=== PATIENT | male | born 1940 | race Caucasian/White ===

== ENCOUNTER 2018-11-20 09:04 | Observation (INO) ==
--- NOTE | 2018-11-20 09:16 | Emergency Department Note ---
ED Disposition Clinical Impression: Acute exacerbation of chronic obstructive airways disease Disposition: Xfer Short-Term Hosp Condition on Discharge: Serious - Critical Care Critical Care Time: No Attestation: On , the high probability of a clinically significant, sudden or life threatening deterioration of the following system(s) required my full and direct attention, intervention and personal management. The time I documented below is in addition to time spent performing reported procedures but includes the following listed in this critical care notation. Medical Decision Making - Medical Records Medical records reviewed: Yes: I reviewed the patient's medical records. - Teddy Inquiry Pt receiving controlled substance: No Vital Signs: 11/20/18 09:05 11/20/18 09:54 11/20/18 10:11 Temperature 98.9 F Temperature Source Oral Pulse Rate 91 H Pulse Rate [Right Brachial] 72 68 Respiratory Rate 19 22 Blood Pressure [Right Arm] 114/72 117/64 Blood Pressure Mean [Right Arm] 86 81 Blood Pressure Source [Right Arm] Automatic Cuff Blood Pressure Position [Right Arm] Sitting 02 Sat by Pulse Oximetry 98 97 Oxygen Delivery Method Room Air Nasal Cannula Oxygen Flow Rate (LPM) 4 - Lab Data Lab results reviewed: Yes: I reviewed the patient's lab results. Lab Results 11/20/18 09:14: Specimen Source Right radial, ABG pH 7.41, ABG pCO2 49.8 H, ABG pO2 53.9 L, ABG HCO3 31.1 H, ABG Total CO2 32.7 H, ABG O2 Saturation 89 L, ABG Base Excess 6.6 H, Santosh Test Acceptable 11/20/18 09:47: WBC 11.1 H, RBC 4.16 L, Hgb 11.9 L, Hct 39.4 L, MCV 94.9 H, MCH 28.6, MCHC 30.1 L, RDW 15.1, Plt Count 237, MPV 7.2 L, Neut % (Auto) 78.2, Lymph % (Auto) 14.4, Coles % (Auto) 7.2, Eos % (Auto) 0.0 L, Baso % (Auto) 0.2, Neut # (Auto) 8.7 H, Lymph # (Auto) 1.6, Coles # (Auto) 0.8, Eos # (Auto) 0.0, Baso # (Auto) 0.0 11/20/18 09:47: Sodium 141, Potassium 3.1 L, Chloride 99, Carbon Dioxide 33 H, Anion Gap 12.1, BUN 23 H, Creatinine 1.20, Estimated Creat Clear 55, Estimated GFR 59, Est GFR ( Amer) 71, Glucose 120 H, Calcium 9.3, Total Bilirubin 1.0, AST 13 L, ALT 14, Alkaline Phosphatase 86, Total Protein 7.7, Albumin 3.8, Globulin 3.9 H, Albumin/Globulin Ratio 1.0 L 11/20/18 09:47: Lactate 1.4 Result diagrams: 11/20/18 09:47 11/20/18 09:47 Orders (Tests/Meds): ED MEDICATIONS Generic Name Dose Route Start Last Admin Trade Name Freq PRN Reason Stop Dose Admin Donepezil HCl 10 mg 11/21/18 09:00 Aricept 10mg Tablet PO 12/21/18 08:59 DAILY JEREMÍAS Hydrochlorothiazide 25 mg 11/21/18 09:00 Hctz 25mg Tablet PO 12/21/18 08:59 DAILY [facility] Memantine 10 mg 11/20/18 21:00 Memantine 10mg Tablet PO 12/20/18 20:59 BID [facility] Oxycodone/Acetaminophen 1 each 11/20/18 13:00 Percocet 10mg/325mg Tablet PO 12/20/18 12:59 QID JEREMÍAS Pentoxifylline 400 mg 11/20/18 13:00 Trental 400mg Tablet PO 12/20/18 12:59 TID JEREMÍAS Discontinued Medications Generic Name Dose Route Start Last Admin Trade Name Freq PRN Reason Stop Dose Admin Albuterol/Ipratropium 3 ml 11/20/18 09:07 11/20/18 09:53 Duoneb 3ml Neb IH 11/20/18 09:08 3 ml ONCE ONE Administration Sodium Chloride 1,000 mls @ 999 mls/hr 11/20/18 09:15 11/20/18 10:01 Sod Chlor 0.9% 1000ml Bag IV 11/20/18 10:15 999 mls/hr .Q1H1M JEREMÍAS Administration Methylprednisolone Sodium Succinate 125 mg 11/20/18 09:06 11/20/18 10:01 Solu-Medrol 125mg/2ml Vial IV 11/20/18 09:07 125 mg ONCE ONE Administration ORDERS Category Date Time Status BNP [B-Type Natriuretic Peptide] Stat Lab 11/20/18 11:23 Ordered Trop I [Troponin I] Stat Lab 11/20/18 11:22 Ordered Blood Culture Stat Micro 11/20/18 09:47 Received Sputum Culture & Gram Stain Stat Micro 11/20/18 10:56 Received - Radiology Data #1 Image(s): Chest Image Reviewed: Yes I reviewed the patient's radiology results Preliminary Findings: Normal/NAD Resp/SOB HPI - General Chief Complaint: Shortness of Breath/Dyspnea Stated Complaint: shortness of breath Time Seen by Provider: 11/20/18 09:10 Mode of Arrival: EMS Limitations: No Limitations Description of Symptoms (Recalled from ER Triage Doc. by RN): Pt brought in by EMS for shortness of breath. Reports he has COPD and still smokes. Reports coughing up phlegm - History of Present Illness MD Complaint: shortness of breath Onset (ago): day(s) (1) Severity: moderate Consistency/Duration: constant Relieving factors: nothing Exacerbating factors: exertion Known history of: COPD Associated symptoms: denies other symptoms - Related Data Home oxygen amount: none Home Medications Medication Instructions Recorded Confirmed RX: Donepezil HCl [Aricept 10mg 10 mg PO DAILY 11/20/18 11/20/18 tablet] RX: Memantine HCl 10 mg PO BID 11/20/18 11/20/18 RX: Oxycodone HCl/Acetaminophen 1 tab PO QID 11/20/18 11/20/18 [Oxycodone W/Apap 325mg Tablet] RX: Pentoxifylline 400 mg PO TID 11/20/18 11/20/18 RX: hydroCHLOROthiazide [HCTZ 25mg 25 mg PO DAILY 11/20/18 11/20/18 tab] Allergies Allergy/AdvReac Type Severity Reaction Status Date / Time No Known Allergies Allergy Verified 09/30/18 08:28 [facility] History - Hepatitis A Screen Drug use history?: No High risk sexual behaviors?: No History of sexually transmitted infection?: No Currently employed?: No Childcare worker?: No Do you have indoor plumbing?: Yes Do you have electricity?: Yes Attestation statement:: This patient has been screened for Hepatitis A risk factors. I have reviewed the patient's past medical history: Yes Medical History: Reports:: Chronic Obstructive Pulmonary Disease (COPD) - Social History Smoking Status: Current every day smoker # Packs/Day (cigarettes): 1 Alcohol Intake: never Occupational Status: disabled Housing: assisted living facility ROS Obtained: Yes Systems reviewed as appropriate & no additional complaints - Constitutional Constitutional: Reports malaise - Eyes Eyes: Reports system reviewed and no additional complaints, except as docu - ENT Ears, Nose, Mouth, and Throat: Reports system reviewed and no additional com plaints, except as docu - Cardiovascular Cardiovascular: Reports system reviewed and no additional complaints, except as docu - Respiratory Respiratory: Yes dyspnea - Gastrointestinal Gastrointestingal: Reports: system reviewed and no additional complaints, except as docu - Genitourinary Male Genitourinary: Reports system reviewed and no additional complaints, except as docu - Musculoskeletal Musculoskeletal: Reports system reviewed and no additional complaints, except as docu - Integumentary/Breasts Skin/Breast: Reports system reviewed and no additional complaints, except as docu - Neurologic Neurologic: Reports system reviewed and no additional complaints, except as docu - Endocrine Endocrine: Reports system reviewed and no additional complaints, except as docu - Hematologic/Lymphatic Henatologic/Lymphatic: Reports system reviewed and no additional complaints, except as docu - Allergic/Immunologic Allergic/Immunologic: Reports system reviewed and no additional complaints, except as docu Physical Exam - General General appearance: alert - Head Head exam: atraumatic, normocephalic, normal inspection - Eye Eye exam: Present: normal appearance, PERRL, EOMI - ENT ENT exam: Present: mucous membranes moist - Neck Neck exam: Present: normal inspection, full ROM, trachea midline. Absent: meningismus, lymphadenopathy - Chest Chest inspection: Present: normal inspection, symmetric chest wall rise. Absent: tenderness - Respiratory Respiratory exam: Present: wheezes (bilat), accessory muscle use - Cardiovascular Cardiovascular exam: Present: regular rate, normal rhythm. Absent: JVD - Abdominal Exam Abdominal exam: Present: soft, normal bowel sounds. Absent: distention, tenderness, guarding - Extremities Exam Extremities exam: Present: normal inspection, full ROM, normal capillary refill. Absent: calf tenderness - Back Exam Back exam: Present: normal inspection. Absent: tenderness - Neurological Exam Neurological exam: Present: alert, CN II-XII intact, motor sensory deficit - Psychiatric Psychiatric exam: Present: normal affect, normal mood - Skin Skin exam: Present: warm, dry, intact, normal color - Lymphatic Lymphatic Findings: no adenopathy
[2018-11-20 09:19] LABS: ABG Base Excess 6.6 mmol/L (-2.4-2.3); ABG Oxygen Saturation 89 % (90-100); ABG TCO2 32.7 mmhg (23-27)
[2018-11-20 09:22] LABS: ABG PH 7.41 mmol/L (7.35-7.45)
[2018-11-20 09:30] LABS: Allen's Test Acceptable
[2018-11-20 09:38] LABS: ABG HCO3 31.1 mmhg (22.0-26.0); ABG PCO2 49.8 mmhg (35.0-45.0); ABG PO2 53.9 mmhg (80-100)
[2018-11-20 10:03] LABS: Basophils % 0.2 % (0.1-2.0); Hematocrit 39.4 % (42.0-52.0); Hemoglobin 11.9 g/dL (14.1-18.0); Lymphocytes # 1.6 K/mm3 (0.7-4.5); Lymphocytes % 14.4 % (10-50); Mean Corpuscular HGB Conc 30.1 g/dL (31.8-35.4); Mean Corpuscular Volume 94.9 fl (80-94); Mean Platelet Volume 7.2 fl (7.4-10.4); Monocytes # 0.8 K/mm3 (0.1-1.0); Monocytes % 7.2 % (1.7-9.3); Neutrophils # 8.7 K/mm3 (1.8-7.8); Neutrophils % 78.2 % (37.0-80.0); Platelet Count 237 K/mm3 (142-424); Red Blood Count 4.16 M/mm3 (4.60-6.20); Red Cell Distribution Width 15.1 % (11.5-17.5); White Blood Count 11.1 K/mm3 (4.8-10.8)
[2018-11-20 10:14] LABS: Albumin Level 3.8 gm/dL (3.4-5.0); Anion Gap 12.1 mEq/L (5-15); Calcium 9.3 mg/dL (8.5-10.1); Globulin 3.9 gm/dl (1.3-3.2); Total Protein,Serum 7.7 gm/dL (6.4-8.2)
--- NOTE | 2018-11-20 12:11 | Pharmacy Consult Notes ---
[facility] [place] Pharmacy VTE Monitoring - Patient Demographics Admission date: 11/20/18 Report Date: 11/20/18 Time: 12:10 Allergies/Adverse Reactions: Patient Allergies No Known Allergies Allergy (Verified 09/30/18 08:28) Height: 1.83 m Weight: 77.111 kg Patient Problems: Current Active Problems Acute exacerbation of chronic obstructive airways disease (Acute) - VTE Risk Labs: VTE Related Lab Results Hgb 11.9 g/dL (14.1-18.0) L 11/20/18 09:47 Hct 39.4 % (42.0-52.0) L 11/20/18 09:47 Plt Count 237 K/mm3 (142-424) 11/20/18 09:47 BUN 23 mg/dL (7-18) H 11/20/18 09:47 Creatinine 1.20 mg/dL (0.70-1.30) 11/20/18 09:47 Estimated Creat Clear 55 mL/min (50-200) 11/20/18 09:47 - Prophylaxis VTE Prophylaxis Ordered?: Yes Types of VTE Prophylaxis: TEDS Knee High Location of Applied Device: Bilateral Lower Extremeties - VTE Diagnosis Confirmed Treatment or plan recommended: Continue Current Treatment
[2018-11-21 06:42] LABS: Albumin/Globulin Ratio 0.9 (1.1-1.8); Anion Gap 8.7 mEq/L (5-15); Bilirubin,Total 0.4 mg/dL (0.2-1.0); Calcium 8.9 mg/dL (8.5-10.1); Globulin 3.3 gm/dl (1.3-3.2); Total Protein,Serum 6.3 gm/dL (6.4-8.2)
[2018-11-21 06:51] LABS: Eosinophils % 0.1 % (0.1-12.0); Hematocrit 33.3 % (42.0-52.0); Lymphocytes # 0.7 K/mm3 (0.7-4.5); Lymphocytes % 6.8 % (10-50); Mean Corpuscular HGB Conc 30.6 g/dL (31.8-35.4); Mean Corpuscular Volume 93.9 fl (80-94); Mean Platelet Volume 8.1 fl (7.4-10.4); Monocytes # 0.4 K/mm3 (0.1-1.0); Monocytes % 3.7 % (1.7-9.3); Neutrophils # 8.8 K/mm3 (1.8-7.8); Neutrophils % 89.3 % (37.0-80.0); Platelet Count 205 K/mm3 (142-424); Red Blood Count 3.55 M/mm3 (4.60-6.20); Red Cell Distribution Width 14.3 % (11.5-17.5); White Blood Count 9.8 K/mm3 (4.8-10.8)
[2018-11-21 06:55] LABS: Hemoglobin 10.2 g/dL (14.1-18.0)
--- NOTE | 2018-11-21 08:42 | H&P/Discharge Summary ---
<Chris Flaherty - Last Filed: 11/21/18 08:43> General - General Admission date:: 11/20/18 Discharge date: 11/21/18 *Admission Date: 11/20/18 *Chief complaint: soa *History of present illness: 78-year-old male who is a [facility] of [facility] presented to the ER with complaints of shortness of air and coughing. Patient has a history of COPD. Patient admitted for low O2 saturation and shortness of air. [facility] History I have reviewed the patient's past medical history: Yes Medical History: Reports:: Chronic Obstructive Pulmonary Disease (COPD) *Have you ever received a pneumonia vaccine?: No *Have you received a flu vaccine this season?: Yes - *Social History Smoking Status: Current every day smoker # Packs/Day (cigarettes): 1 Alcohol Intake: never *Occupational Status:: disabled Housing: assisted living facility *Travel in the last 8 weeks: None Family Hx:: Unable to obtain Review of Systems - Review of Systems Review of systems:: pertinent systems reviewed and negative unless documented below - Constitutional Denies body ache(s), Denies fever(s) - Eyes Denies change in vision - ENT Denies sinus pain - *Cardiovascular Reports shortness of breath, Denies chest pain at rest - *Respiratory Reports change in phlegm color, Reports shortness of breath, Denies shortness of breath with activity - *Gastrointestinal Denies nausea, Denies vomiting - *Genitourinary Denies urinary hesitancy - *Musculoskeletal Denies joint pain - Integumentary/Breasts Denies bleeding lesions, Denies rash - *Neurologic Denies dizziness - Psychiatric Denies anxiety - Endocrine Denies increased thirst - Hematologic/Lymphatic Denies enlarged lymph nodes - Allergic/Immunologic Denies itchy eyes, Denies throat swelling Exam Vital signs and Labs for Last 24 Hours: Temp Pulse Resp BP Pulse Ox 97.4 F L 77 18 122/52 L 91 L 11/21/18 04:00 11/21/18 06:46 11/21/18 04:00 11/21/18 04:00 11/21/18 06:46 Laboratory Results - last 24 hr 11/20/18 09:14: Specimen Source Right radial, ABG pH 7.41, ABG pCO2 49.8 H, ABG pO2 53.9 L, ABG HCO3 31.1 H, ABG Total CO2 32.7 H, ABG O2 Saturation 89 L, ABG Base Excess 6.6 H, Santosh Test Acceptable 11/20/18 09:47: WBC 11.1 H, RBC 4.16 L, Hgb 11.9 L, Hct 39.4 L, MCV 94.9 H, MCH 28.6, MCHC 30.1 L, RDW 15.1, Plt Count 237, MPV 7.2 L, Neut % (Auto) 78.2, Lymph % (Auto) 14.4, Thayer % (Auto) 7.2, Eos % (Auto) 0.0 L, Baso % (Auto) 0.2, Neut # (Auto) 8.7 H, Lymph # (Auto) 1.6, Thayer # (Auto) 0.8, Eos # (Auto) 0.0, Baso # (Auto) 0.0 11/20/18 09:47: Sodium 141, Potassium 3.1 L, Chloride 99, Carbon Dioxide 33 H, Anion Gap 12.1, BUN 23 H, Creatinine 1.20, Estimated Creat Clear 55, Estimated GFR 59, Est GFR ( Amer) 71, Glucose 120 H, Calcium 9.3, Total Bilirubin 1.0, AST 13 L, ALT 14, Alkaline Phosphatase 86, Total Protein 7.7, Albumin 3.8, Globulin 3.9 H, Albumin/Globulin Ratio 1.0 L 11/20/18 09:47: Lactate 1.4 11/20/18 09:47: Troponin I < 0.02 11/20/18 09:47: B-Natriuretic Peptide 97 11/21/18 06:11: WBC 9.8, RBC 3.55 L, Hgb 10.2 L D, Hct 33.3 L, MCV 93.9, MCH 28.8, MCHC 30.6 L, RDW 14.3, Plt Count 205, MPV 8.1, Neut % (Auto) 89.3 H, Lymph % (Auto) 6.8 L, Thayer % (Auto) 3.7, Eos % (Auto) 0.1, Baso % (Auto) 0.0 L, Neut # (Auto) 8.8 H, Lymph # (Auto) 0.7, Thayer # (Auto) 0.4, Eos # (Auto) 0.0, Baso # (Auto) 0.0 11/21/18 06:11: Sodium 138, Potassium 2.7 L*, Chloride 101, Carbon Dioxide 31, Anion Gap 8.7, BUN 31 H D, Creatinine 1.21, Estimated Creat Clear 55, Estimated GFR 58 L, Est GFR ( Amer) 70, Glucose 162 H D, Calcium 8.9, Magnesium 2.3 H, Total Bilirubin 0.4, AST 9 L D, ALT 12, Alkaline Phosphatase 70, Total Protein 6.3 L, Albumin 3.0 L D, Globulin 3.3 H, Albumin/Globulin Ratio 0.9 L I & O for Last 24 hours: Intake & Output 11/18/18 11/19/18 11/20/18 11/21/18 11:59 11:59 11:59 11:59 Intake Total 120 / 120 Output Total 400 / 400 Balance -280 / -280 Weight 169 lb 15.975 oz 171 lb 3 oz Microbiology Reports for the Last 24 Hours: Microbiology 11/20/18 10:56 Sputum - Expectorated Sputum Gram Stain - Final - Constitutional no acute distress - *Routine HEENT Exam Head: Present: normocephalic Eye: Present: PERRL ENT: Present: mucous membranes moist - *Routine Neck Exam Present: supple. Absent: lymphadenopathy - *Routine Respiratory Exam Present: wheezes - *Routine Cardiovascular Exam Present: RRR - *Routine Abdominal Exam Present: soft, normoactive bowel sounds. Absent: tenderness - *Routine Extremities Exam Absent: cyanosis, clubbing, edema - *Routine Skin Exam Present: warm. Absent: rash - *Routine Neurological Exam Present: alert, oriented X3 - Routine Psychiatric Exam Present: normal affect Hospital Course Hospital Course: Patient was placed on O2 given steroids. Chest x-ray with no acute findings Low potassium will replace with oral potassium Patient's O2 is 95% on room air. Patient is alert and talking sitting on the side of the bed. 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 [facility] be [facility] to [facility] with a 5-day course of steroids. And recheck BMP on Saturday Results Labs on day of discharge: Labs from last 24 hours 10/04/19 10/04/19 10/03/19 06:11 06:11 09:47 WBC 9.8 RBC 3.55 L Hgb 10.2 L D Hct 33.3 L MCV 93.9 MCH 28.8 MCHC 30.6 L RDW 14.3 Plt Count 205 MPV 8.1 Neut % (Auto) 89.3 H Lymph % (Auto) 6.8 L Thayer % (Auto) 3.7 Eos % (Auto) 0.1 Baso % (Auto) 0.0 L Neut # (Auto) 8.8 H Lymph # (Auto) 0.7 Thayer # (Auto) 0.4 Eos # (Auto) 0.0 Baso # (Auto) 0.0 Specimen Source ABG pH ABG pCO2 ABG pO2 ABG HCO3 ABG Total CO2 ABG O2 Saturation ABG Base Excess Santosh Test Sodium 138 Potassium 2.7 L* Chloride 101 Carbon Dioxide 31 Anion Gap 8.7 BUN 31 H D Creatinine 1.21 Estimated Creat Clear 55 Estimated GFR 58 L Est GFR ( Amer) 70 Glucose 162 H D Lactate Calcium 8.9 Magnesium 2.3 H Total Bilirubin 0.4 AST 9 L D ALT 12 Alkaline Phosphatase 70 Troponin I B-Natriuretic Peptide 97 Total Protein 6.3 L Albumin 3.0 L D Globulin 3.3 H Albumin/Globulin Ratio 0.9 L 11/20/18 11/20/18 11/20/18 09:47 09:47 09:47 WBC RBC Hgb Hct MCV MCH MCHC RDW Plt Count MPV Neut % (Auto) Lymph % (Auto) Thayer % (Auto) Eos % (Auto) Baso % (Auto) Neut # (Auto) Lymph # (Auto) Thayer # (Auto) Eos # (Auto) Baso # (Auto) Specimen Source ABG pH ABG pCO2 ABG pO2 ABG HCO3 ABG Total CO2 ABG O2 Saturation ABG Base Excess Santosh Test Sodium 141 Potassium 3.1 L Chloride 99 Carbon Dioxide 33 H Anion Gap 12.1 BUN 23 H Creatinine 1.20 Estimated Creat Clear 55 Estimated GFR 59 Est GFR ( Amer) 71 Glucose 120 H Lactate 1.4 Calcium 9.3 Magnesium Total Bilirubin 1.0 AST 13 L ALT 14 Alkaline Phosphatase 86 Troponin I < 0.02 B-Natriuretic Peptide Total Protein 7.7 Albumin 3.8 Globulin 3.9 H Albumin/Globulin Ratio 1.0 L 11/20/18 11/20/18 09:47 09:14 WBC 11.1 H RBC 4.16 L Hgb 11.9 L Hct 39.4 L MCV 94.9 H MCH 28.6 MCHC 30.1 L RDW 15.1 Plt Count 237 MPV 7.2 L Neut % (Auto) 78.2 Lymph % (Auto) 14.4 Thayer % (Auto) 7.2 Eos % (Auto) 0.0 L Baso % (Auto) 0.2 Neut # (Auto) 8.7 H Lymph # (Auto) 1.6 Thayer # (Auto) 0.8 Eos # (Auto) 0.0 Baso # (Auto) 0.0 Specimen Source Right radial ABG pH 7.41 ABG pCO2 49.8 H ABG pO2 53.9 L ABG HCO3 31.1 H ABG Total CO2 32.7 H ABG O2 Saturation 89 L ABG Base Excess 6.6 H Santosh Test Acceptable Sodium Potassium Chloride Carbon Dioxide Anion Gap BUN Creatinine Estimated Creat Clear Estimated GFR Est GFR ( Amer) Glucose Lactate Calcium Magnesium Total Bilirubin AST ALT Alkaline Phosphatase Troponin I B-Natriuretic Peptide Total Protein Albumin Globulin Albumin/Globulin Ratio - Additional Comments Rounded with Dr. Senior all orders per Nadeen DS: Diagnosis - Discharge Diagnosis (1) Acute exacerbation of chronic obstructive airways disease Status: Acute Discharge Plan - Patient Discharge Instructions ACTIVITY: Continue current activity DIET: continue same diet Patient Instructions: DI for Chronic Obstructive Pulmonary Disease - Follow up Plan Follow up with: Provider,Referral, [Primary Care Provider] - Disposition: Home, Self-Residential Medications: Home Medications Medication Instructions Recorded Confirmed Type Donepezil HCl [Aricept 10mg 10 mg PO HS 11/20/18 11/20/18 History tablet] Memantine HCl 10 mg PO BID 11/20/18 11/20/18 History Oxycodone HCl/Acetaminophen 1 tab PO QID 11/20/18 11/20/18 History [Oxycodone W/Apap 325mg Tablet] Pentoxifylline 400 mg PO TID 11/20/18 11/20/18 History hydroCHLOROthiazide [HCTZ 25mg 25 mg PO DAILY 11/20/18 11/20/18 History tab] levoFLOXacin [Levaquin 500mg 500 mg PO 1100 #5 tab 11/21/18 Rx tab] predniSONE [Prednisone 20mg 20 mg PO BID #10 tab 11/21/18 Rx Tab] Prescriptions/Medication Reconciliation: New predniSONE [Prednisone 20mg Tab] 20 mg PO BID #10 tab levoFLOXacin [Levaquin 500mg tab] 500 mg PO 1100 #5 tab Continued Memantine HCl 10 mg PO BID Pentoxifylline 400 mg PO TID Donepezil HCl [Aricept 10mg tablet] 10 mg PO HS Oxycodone HCl/Acetaminophen [Oxycodone W/Apap 325mg Tablet] 1 tab PO QID Discontinued hydroCHLOROthiazide [HCTZ 25mg tab] 25 mg PO DAILY - Problem Reconciliation Problems Reviewed?: Yes <Chandu Senior - Last Filed: 11/21/18 12:16> General - General Admission date:: 11/20/18 Exam Vital signs and Labs for Last 24 Hours: Temp Pulse Resp BP Pulse Ox 97.9 F 72 18 123/52 L 92 L 11/21/18 08:00 11/21/18 11:05 11/21/18 08:00 11/21/18 08:00 11/21/18 11:05 Laboratory Results - last 24 hr 11/21/18 06:11: WBC 9.8, RBC 3.55 L, Hgb 10.2 L D, Hct 33.3 L, MCV 93.9, MCH 28.8, MCHC 30.6 L, RDW 14.3, Plt Count 205, MPV 8.1, Neut % (Auto) 89.3 H, Lymph % (Auto) 6.8 L, Thayer % (Auto) 3.7, Eos % (Auto) 0.1, Baso % (Auto) 0.0 L, Neut # (Auto) 8.8 H, Lymph # (Auto) 0.7, Thayer # (Auto) 0.4, Eos # (Auto) 0.0, Baso # (Auto) 0.0, Total Counted 100, Neutrophils % (Manual) 89 H, Band Neutrophils % 1.0, Lymphocytes % (Manual) 8 L, Monocytes % (Manual) 1 L, Metamyelocytes % 1.0, Platelet Estimate Normal, Hypochromasia 1+ 11/21/18 06:11: Sodium 138, Potassium 2.7 L*, Chloride 101, Carbon Dioxide 31, Anion Gap 8.7, BUN 31 H D, Creatinine 1.21, Estimated Creat Clear 55, Estimated GFR 58 L, Est GFR ( Amer) 70, Glucose 162 H D, Calcium 8.9, Magnesium 2.3 H, Total Bilirubin 0.4, AST 9 L D, ALT 12, Alkaline Phosphatase 70, Total Protein 6.3 L, Albumin 3.0 L D, Globulin 3.3 H, Albumin/Globulin Ratio 0.9 L I & O for Last 24 hours: Intake & Output 11/19/18 11/20/18 11/21/18 11/22/18 11:59 11:59 11:59 11:59 Intake Total 480 / 480 Output Total 400 / 400 Balance 80 / 80 Weight 169 lb 15.975 oz 171 lb 3 oz Microbiology Reports for the Last 24 Hours: Microbiology 11/20/18 10:56 Sputum - Expectorated Sputum Gram Stain - Final 11/20/18 10:56 Sputum - Expectorated Sputum Sputum Culture - Preliminary Results Labs on day of discharge: Labs from last 24 hours 11/21/18 11/21/18 06:11 06:11 WBC 9.8 RBC 3.55 L Hgb 10.2 L D Hct 33.3 L MCV 93.9 MCH 28.8 MCHC 30.6 L RDW 14.3 Plt Count 205 MPV 8.1 Neut % (Auto) 89.3 H Lymph % (Auto) 6.8 L Thayer % (Auto) 3.7 Eos % (Auto) 0.1 Baso % (Auto) 0.0 L Neut # (Auto) 8.8 H Lymph # (Auto) 0.7 Thayer # (Auto) 0.4 Eos # (Auto) 0.0 Baso # (Auto) 0.0 Total Counted 100 Neutrophils % (Manual) 89 H Band Neutrophils % 1.0 Lymphocytes % (Manual) 8 L Monocytes % (Manual) 1 L Metamyelocytes % 1.0 Platelet Estimate Normal Hypochromasia 1+ Sodium 138 Potassium 2.7 L* Chloride 101 Carbon Dioxide 31 Anion Gap 8.7 BUN 31 H D Creatinine 1.21 Estimated Creat Clear 55 Estimated GFR 58 L Est GFR ( Amer) 70 Glucose 162 H D Calcium 8.9 Magnesium 2.3 H Total Bilirubin 0.4 AST 9 L D ALT 12 Alkaline Phosphatase 70 Total Protein 6.3 L Albumin 3.0 L D Globulin 3.3 H Albumin/Globulin Ratio 0.9 L Preliminary micro results at discharge 11/20/18 10:56 Sputum Culture - Preliminary Sputum - Expectorated Sputum DS: Diagnosis - Discharge Diagnosis (1) Acute exacerbation of chronic obstructive airways disease Status: Acute (2) Hypokalemia Status: Acute (3) Anemia Status: Acute (4) Mild dementia Status: Chronic (5) Tobacco use Status: Acute Discharge Plan - Problem Reconciliation Problems Reviewed?: Yes
[2018-11-21 09:09] LABS: Hypochromasia 1+; Lymphocytes % 8 % (10-50); Monocytes % 1 % (2-9); Neutrophils % 89 % (42-76); Total Cells Counted 100
--- NOTE | 2018-11-22 19:17 | Electrocardiograph Report ---
APPROVED REPORT Exam: Resting ECG HR:76 bpm ECG Measurements Heart Rate 76 AXES WA 196 P 94 QRSd 104 QRS -75 QT 402 T80 QTc 452 <Conclusion> Normal sinus rhythm Pulmonary disease pattern Left anterior fascicular block Abnormal ECG Electronically signed by : Eyad Varghese, 11/22/2018 19:16:46
== END 2018-11-21 13:26 | disposition home or self-care (01) ==
LOC: 2ND 09:04 → ER 09:04 → 2ND 12:07
PROVIDERS: ADMIT Emergency Medicine; ATTEND Emergency Medicine
CPT/HCPCS: 71010; 71045; 80053; 82803; 83605; 83735; 83880; 84484; 85007; 85025; 87040; 87070; 87077; 87205; 93005; 94640; 94761; 96365; 96375; 99285; G0378

== ENCOUNTER 2020-09-29 14:16 | Emergency (ER) | payer MEDICARE, MEDICAID, SELFPAY ==
[2020-09-29 14:16] VITALS: BP 116/55; PULSE 76; RESP 16; TEMP 36.7; O2SAT 97; BMI 24.4
--- NOTE | 2020-09-29 14:29 | XR_ITS ---
PROCEDURE: XR KNEE RT 3V CLINICAL INDICATION: fall from standing onto right hip COMPARISON: CR XR KNEE RT 3V from 01/22/2019 FINDINGS: No fracture or dislocation. No lytic or blastic change. There is normal mineralization. Mild osteoarthritic changes with mild generalized osteopenia. Other findings:None. IMPRESSION: No acute findings. Dictated by: Santosh Haas MD 09/29/2020 15:03 Santosh Haas MD in [place] 09/29/2020 15:03
--- NOTE | 2020-09-29 14:29 | XR_ITS ---
PROCEDURE: XR HIP RT 2-3V W/PELVIS CLINICAL INDICATION: fall from standing onto right hip COMPARISON: No exams were available for comparison FINDINGS: No fracture or dislocation is evident. No significant degenerative change. No lytic or blastic change. Unremarkable soft tissues. IMPRESSION: No acute findings. Dictated by: Santosh Haas MD 09/29/2020 15:06 Santosh Haas MD in [facility] 09/29/2020 15:06
--- NOTE | 2020-09-29 14:30 | HMH.EDLOEX ---
ED Disposition Clinical Impression: Fall Qualifiers: Encounter type: initial encounter Qualified Code(s): W19.XXXA - Unspecified fall, initial encounter Leg pain Qualifiers: Laterality: right Qualified Code(s): M79.604 - Pain in right leg Disposition: Home, Self-Care Condition on Discharge: Good Instructions: DI for Musculoskeletal Pain Additional Instructions: Follow-up with primary care provider within 3 days for reevaluation. Return to the emergency department for any acute new concerns. - Critical Care Critical Care Time: No Attestation: On , the high probability of a clinically significant, sudden or life threatening deterioration of the following system(s) required my full and direct attention, intervention and personal management. The time I documented below is in addition to time spent performing reported procedures but includes the following listed in this critical care notation. Medical Decision Making - Medical Records Medical records reviewed: Yes: I reviewed the patient's medical records. - Teddy Inquiry Pt receiving controlled substance: No Vital Signs: 09/29/20 14:16 Temperature 98.1 F Temperature Source Oral Pulse Rate [Right] 76 Respiratory Rate 16 Blood Pressure [Right Arm] 116/55 L Blood Pressure Mean [Right Arm] 75 02 Sat by Pulse Oximetry 97 Oxygen Delivery Method Room Air - Radiology Data #1 Image(s): Hip, Knee Image Reviewed: Yes I reviewed the patient's radiology results Preliminary Findings: Normal/NAD Medical Decision Narrative: No obvious deformity of the hip or knee on exam. Patient's right upper extremity, while initially painful, now is able to have painless full range of motion and an unremarkable exam other than some mild bruising around the right elbow. X-rays of the right hip and knee are negative for any acute fracture dislocation and patient does have full active range of motion at the hip and knee. Discharged back to [facility]. Lower Extremity Injury HPI - General Stated Complaint: fall Time Seen by Provider: 09/29/20 14:31 Mode of Arrival: EMS Source of Information: Patient, EMS Limitations: No Limitations - History of Present Illness HPI Narrative: The emergency department for right hip and knee pain after falling just prior to arrival. He stood up from the chair and states his right leg gave out . He denies any associated chest pain, shortness of breath or recent illnesses. He has pain at the right hip and knee with movement though he is able to fully mobilize the extremity. He initially complained of right shoulder and right elbow pain as well, but is able to mobilize those much better now and states pain is improving. No head injury, no loss of consciousness. He denies any neck or back pain. - Related Data Home Medications Medication Instructions Recorded Confirmed Donepezil HCl [Aricept 10mg 10 mg PO HS 11/20/18 11/23/18 tablet] Memantine HCl 10 mg PO BID 11/20/18 11/23/18 Pentoxifylline 400 mg PO TID 11/20/18 11/23/18 levoFLOXacin [Levaquin 500mg 500 mg PO 1100 11/23/18 11/23/18 tab] predniSONE [Prednisone 20mg 20 mg PO BID 11/23/18 11/23/18 Tab] Previous Rx's Medication Instructions Recorded Albuterol Sulfate [Albuterol HFA 2 puffs IH Q6HP PRN #1 inh 11/23/18 Inhaler] Amoxicillin [Amoxicillin 500mg 500 mg PO TID #21 cap 11/23/18 Cap] Ibuprofen [Ibuprofen 600mg 600 mg PO Q8HP PRN 30 Days #90 tab 01/22/19 Tablet] oxycodone-acetaminophen 10 mg-325 1 tab PO QID #120 tab 09/20/20 mg tablet Allergies Allergy/AdvReac Type Severity Reaction Status Date / Time No Known Allergies Allergy Verified 11/23/18 12:21 [facility] History - Hepatitis A Screen Attestation statement:: This patient has been screened for Hepatitis A risk factors. I have reviewed the patient's past medical history: Yes Medical History: Reports:: Chronic Obstructive Pulmonary Disease (COPD) -
--- NOTE | 2020-09-29 15:21 | PC.NURSE ---
Deborah called for transport
[2020-09-29 15:45] VITALS: BP 132/65; PULSE 76; RESP 18; TEMP 36.7; O2SAT 97
== END 2020-09-29 15:52 | disposition home or self-care (01) ==
PROVIDERS: Emergency Provider Emergency Medicine
DX: M79.604 Pain in right leg (principal); W01.0XXA Fall on same level from slipping, tripping and stumbling without subsequent striking against object, initial encounter; Y92.019 Unspecified place in single-family (private) house as the place of occurrence of the external cause
CPT/HCPCS: 73502; 73562; 96365; 99282

== ENCOUNTER 2020-10-18 21:21 | Emergency (ER) | payer MEDICARE, MEDICAID, SELFPAY ==
[2020-10-18 21:18] VITALS: BP 119/80; PULSE 78; RESP 18; TEMP 37.1; O2SAT 99; BMI 26.6
--- NOTE | 2020-10-18 21:35 | XR_ITS ---
PROCEDURE INFORMATION: Exam: XR Chest Exam date and time: 10/18/2020 9:35 PM Age: 80 years old Clinical indication: Shortness of breath and other: Weakness; Patient HX: SOA, weakness, contact with a covid positive person TECHNIQUE: Imaging protocol: XR of the chest. Views: 2 views. COMPARISON: CR XR CHEST PORTABLE 11/23/2018 12:27 PM FINDINGS: Lungs: Bibasal subsegmental atelectasis/scarring, unchanged. No focal consolidation. No appreciable pulmonary edema. Pleural spaces: No pleural effusion. No pneumothorax. Heart/Mediastinum: Cardiomediastinal silhouette is unchanged. Bones/joints: No acute osseous abnormality. Soft tissues: Unremarkable. IMPRESSION: No evidence of acute cardiopulmonary disease.
[2020-10-18 21:40] LABS: Microscopic, Urine URINE MICROSCOPIC (MICROSCOPIC)
[2020-10-18 21:42] LABS: Appearance,Urine CLEAR (Clear); Bilirubin,Urine Negative (Negative); Blood, Urine TRACE-I (Negative); Color,Urine YELLOW (Yellow); Glucose,Urine (UA) Negative (Negative); Ketones,Urine Negative (Negative); Leukocyte Esterase,Urine Negative (Negative); Nitrate,Urine Negative (Negative); PH,Urine 5.5 (5.0-8.5); Protein,Urine Negative (Negative); Specific Gravity, Urine 1.025 (1.005-1.030)
[2020-10-18 21:43] LABS: Basophils # 0.1 K/mm3 (0-0.2); Basophils % 1.6 % (0.1-2.0); Eosinophils % 0.2 % (0.1-12.0); Hematocrit 42.1 % (42.0-52.0); Hemoglobin 13.1 g/dL (14.1-18.0); Lymphocytes # 1.1 K/mm3 (0.7-4.5); Lymphocytes % 23.3 % (10-50); Mean Corpuscular HGB Conc 31.2 g/dL (31.8-35.4); Mean Corpuscular Hemoglobin 30.2 pg (27.0-31.2); Mean Platelet Volume 8.1 fl (7.4-10.4); Monocytes # 0.6 K/mm3 (0.1-1.0); Monocytes % 13.4 % (1.7-9.3); Neutrophils # 2.9 K/mm3 (1.8-7.8); Neutrophils % 61.5 % (37.0-80.0); Platelet Count 236 K/mm3 (142-424); Red Blood Count 4.34 M/mm3 (4.60-6.20); Red Cell Distribution Width 14.5 % (11.5-17.5); White Blood Count 4.8 K/mm3 (4.8-10.8)
[2020-10-18 21:52] LABS: Alanine Aminotransferase 15 U/L (12-78); Albumin Level 4.4 g/dl (3.5-5.0); Albumin/Globulin Ratio 1.4 (1.1-1.8); Alkaline Phosphatase 100 U/L (38-126); Anion Gap 14.1 mEq/L (5-15); Aspartate Amino Transferase 27 U/L (17-59); Bilirubin,Total 0.7 mg/dl (0.2-1.3); Blood Urea Nitrogen 25 mg/dl (9-20); Calcium 9.1 mg/dl (8.4-10.2); Carbon Dioxide 31 mmol/L (22.0-30.0); Chloride 96 mmol/L (98-107); Creatinine Clearance Estimated 62 mL/min (50-200); Estimated Glomerular Filt Rate 64 ml/min (>60); GFR (African American) 78 ML/MIN (>60); Globulin 3.1 g/dL (1.3-3.2); Glucose 91 mg/dl (74-100); Potassium 4.1 mmoL/L (3.5-5.1); Sodium 137 mmol/L (136-145); Total Protein,Serum 7.5 g/dl (6.3-8.2)
[2020-10-18 21:58] LABS: C-Reactive Protein 18.1 mg/L (0-4)
[2020-10-18 21:59] LABS: RBC,Urine Occasional #/hpf (0-3); WBC,Urine Occasional #/hpf (0-3)
[2020-10-18 22:10] LABS: Erythrocyte Sedimentation Rate 51 mm/hr (0-20)
[2020-10-18 22:11] LABS: Procalcitonin 0.123 ng/mL (0.0-2.0)
[2020-10-18 22:14] LABS: Influenza A, PCR Not Detected (NotDetected); Influenza B, PCR Not Detected (NotDetected)
[2020-10-18 22:15] LABS: Coronavirus 19, PCR Detected (NotDetected)
--- NOTE | 2020-10-18 22:31 | HMH.EDGENADL ---
ED Disposition Clinical Impression: COVID-19 Disposition: Home, Self-Care Condition on Discharge: Good Instructions: DI for COVID-19 (Suspected or Confirmed ) Additional Instructions: will consider regen-cov and return to senior care Referrals: Chandu Senior MD [Primary Care Provider] - - Critical Care Critical Care Time: No Attestation: On 10/18/20, the high probability of a clinically significant, sudden or life threatening deterioration of the following system(s) required my full and direct attention, intervention and personal management. The time I documented below is in addition to time spent performing reported procedures but includes the following listed in this critical care notation. Medical Decision Making - Medical Records Medical records reviewed: Yes: I reviewed the patient's medical records. - Teddy Inquiry Pt receiving controlled substance: No Vital Signs: 10/18/20 21:18 Temperature 98.7 F Temperature Source Oral Pulse Rate [Right] 78 Respiratory Rate 18 Blood Pressure [Right Arm] 119/80 Blood Pressure Mean [Right Arm] 93 02 Sat by Pulse Oximetry 99 - Lab Data Lab results reviewed: Yes: I reviewed the patient's lab results. Lab Results 10/18/20 21:20: Urine Color Yellow, Urine Appearance Clear, Urine pH 5.5, Ur Specific [place] 1.025, Urine Protein Negative, Urine Glucose (UA) Negative, Urine Ketones Negative, Urine Blood Trace-i, Urine Nitrate Negative, Urine Bilirubin Negative, Urine Urobilinogen 1.0, Ur Leukocyte Esterase Negative, Urine RBC Occasional, Urine WBC Occasional, Ur Squamous Epith Cells 3-5, Urine Bacteria None 10/18/20 21:20: WBC 4.8, RBC 4.34 L, Hgb 13.1 L, Hct 42.1, MCV 97.0 H, MCH 30.2, MCHC 31.2 L, RDW 14.5, Plt Count 236, MPV 8.1, Neut % (Auto) 61.5, Lymph % (Auto) 23.3, [place] % (Auto) 13.4 H, Eos % (Auto) 0.2, Baso % (Auto) 1.6, Neut # (Auto) 2.9, Lymph # (Auto) 1.1, [place] # (Auto) 0.6, Eos # (Auto) 0.0, Baso # (Auto) 0.1, ESR 51 H 10/18/20 21:36: Sodium 137, Potassium 4.1, Chloride 96 L, Carbon Dioxide 31 H, Anion Gap 14.1, BUN 25 H, Creatinine 1.10, Estimated Creat Clear 62, Estimated GFR 64, Est GFR ( Amer) 78, Glucose 91, Calcium 9.1, Total Bilirubin 0.7, AST 27, ALT 15, Alkaline Phosphatase 100, C-Reactive Protein 18.1 H, Total Protein 7.5, Albumin 4.4, Globulin 3.1, Albumin/Globulin Ratio 1.4, Procalcitonin 0.123 10/18/20 21:36: SARS-CoV-2 (PCR) Detected A, Influenza A Untype (PCR) Not detected, Influenza Type B (PCR) Not detected Result diagrams: 10/18/20 21:20 10/18/20 21:36 Orders (Tests/Meds): ED MEDICATIONS Generic Name Dose Route Start Last Admin Trade Name Freq PRN Reason Stop Dose Admin Sodium Chloride 1,000 mls @ 999 mls/hr 10/18/20 21:45 10/18/20 21:39 Sod Chlor 0.9% 1000ml Bag IV 10/18/20 22:45 999 mls/hr .Q1H1M JEREMÍAS Administration Discontinued Medications Generic Name Dose Route Start Last Admin Trade Name Freq PRN Reason Stop Dose Admin Dexamethasone Sodium Phosphate 10 mg 10/18/20 22:43 10/18/20 22:44 Dexamethasone 4mg/Ml 5ml Mdv IV 10/18/20 22:44 10 mg ONCE ONE Administration Ketorolac Tromethamine 30 mg 10/18/20 21:36 10/18/20 21:39 Ketorolac 30mg/Ml Vial IV 10/18/20 21:37 30 mg ONCE ONE Administration - Radiology Data #1 Image(s): Chest Image Reviewed: Yes I have reviewed radiologist's interpretation Preliminary Findings: Normal/NAD Medical Decision Narrative: has covid-19 and stable labs and exam General Adult HPI - General Chief complaint: PAIN Stated complaint: back pain Time Seen by Provider: 10/18/20 21:55 Mode of Arrival: EMS Source of Information: Patient, EMS, Medical Record Limitations: No Limitations Description of Symptoms (Recalled from ER Triage Doc. by RN): pt c/o chronic back pain - History of Present Illness HPI narrative: pt with not feeling well and exposure to covid-19 at senior care - has chronic back pain- no cough and no eash Onset (ago
--- NOTE | 2020-10-18 22:42 | PC.NURSE ---
geriatric care manager notified of covid per dr villagran
--- NOTE | 2020-10-18 23:03 | PC.NURSE ---
[facility] infusion order faxed to pharmacy
[2020-10-18 23:05] VITALS: BP 112/86; PULSE 82; RESP 18; TEMP 37.1; O2SAT 99
== END 2020-10-18 23:32 | disposition home or self-care (01) ==
PROVIDERS: Emergency Provider Emergency Medicine; PCP Emergency Medicine
DX: U07.1 COVID-19 (principal); J44.9 Chronic obstructive pulmonary disease, unspecified; F17.210 Nicotine dependence, cigarettes, uncomplicated
CPT/HCPCS: 71046; 80053; 81001; 84145; 85025; 85651; 86140; 96365; 96375; 99283; U0003

== ENCOUNTER 2020-10-20 09:34 | Outpatient (CLI) | payer MEDICARE, MEDICAID, SELFPAY ==
[2020-10-20] VITALS (7 sets, daily range): BP systolic 110–123; BP diastolic 65–71; PULSE 62–76; RESP 16–18; TEMP 36.9; O2SAT 97–99
== END 2020-10-20 13:28 | disposition home or self-care (01) ==
PROVIDERS: PCP Emergency Medicine; Visit Provider Emergency Medicine
DX: U07.1 COVID-19 (principal)
CPT/HCPCS: 96365

== ENCOUNTER 2020-10-31 11:31 | Inpatient (IN) | payer MEDICARE, MEDICAID, SELFPAY ==
[2020-10-31] VITALS (8 sets, daily range): BP systolic 94–134; BP diastolic 50–86; PULSE 82–97; RESP 16–22; TEMP 36.1–36.9; O2SAT 91–100; BMI 23.0; BMI 18.3
--- NOTE | 2020-10-31 11:44 | XR_ITS ---
PROCEDURE: XR CHEST PORTABLE CLINICAL HISTORY: CLAIR LIVEID19 COMPARISON: CR XR CHEST PORTABLE from 11/20/2018 CR XR CHEST PORTABLE from 11/23/2018 CR XR CHEST 2V from 10/18/2020 FINDINGS: The cardiomediastinal silhouette and pulmonary vascularity are within normal limits. Peripheral consolidation is present in the right lung base laterally. COPD changes. Severe degenerative changes left shoulder IMPRESSION: Right lower lobe pneumonia Dictated by: Santosh Haas MD 10/31/2020 12:20 Santosh Haas MD in [place] 10/31/2020 12:20
--- NOTE | 2020-10-31 11:49 | HMH.EDGENADL ---
ED Disposition Clinical Impression: COVID-19, Acute respiratory failure with hypoxia, BACILIO (acute kidney injury) PNA (pneumonia) Qualifiers: Pneumonia type: due to unspecified organism Laterality: right Lung location: lower lobe of lung Qualified Code(s): J18.9 - Pneumonia, unspecified organism Disposition: Admitted As Inpatient Condition on Discharge: Fair Referrals: Provider,Referral, MD [Primary Care Provider] - Time of Disposition: 13:33 - Critical Care Critical Care Time: Yes Attestation: On , the high probability of a clinically significant, sudden or life threatening deterioration of the following system(s) required my full and direct attention, intervention and personal management. The time I documented below is in addition to time spent performing reported procedures but includes the following listed in this critical care notation. Total Critical Care Time: 35 Vital system(s) involved:: Respiratory Failure, Renal Failure My critical care processes included: Assessment & monitoring of V/S, Initial and Re-exams, Data Review/Interpretation, Coordinating Care, Medication Orders and management, Documentation Medical Decision Making - Medical Records Medical records reviewed: Yes: I reviewed the patient's medical records. - Teddy Inquiry Pt receiving controlled substance: No Vital Signs: 10/31/20 11:32 10/31/20 12:17 10/31/20 12:31 Temperature 97.6 F Temperature Source Oral Pulse Rate 97 H 93 H Respiratory Rate 22 21 19 Blood Pressure 110/65 94/74 L Blood Pressure [Right Arm] 98/60 L Blood Pressure Mean [Right Arm] 72 02 Sat by Pulse Oximetry 93 L 99 91 L Oxygen Delivery Method Nasal Cannula Oxygen Flow Rate (LPM) 4 - Lab Data Lab results reviewed: Yes: I reviewed the patient's lab results. Lab Results 10/31/20 12:10: WBC 30.5 H*, RBC 4.56 L, Hgb 13.8 L, Hct 43.5, MCV 95.4 H, MCH 30.3, MCHC 31.7 L, RDW 14.0, Plt Count 400, MPV 7.6, Neut % (Auto) 92.8 H, Lymph % (Auto) 3.8 L, [place] % (Auto) 2.9, Eos % (Auto) 0.3, Baso % (Auto) 0.2, Neut # (Auto) 28.3 H, Lymph # (Auto) 1.2, [place] # (Auto) 0.9, Eos # (Auto) 0.1, Baso # (Auto) 0.1, Total Counted 100, Neutrophils % (Manual) 90 H, Lymphocytes % (Manual) 6 L, Monocytes % (Manual) 4, Platelet Estimate Normal 10/31/20 12:10: Sodium 140, Potassium 2.7 L*, Chloride 92 L, Carbon Dioxide 32 H, Anion Gap 18.7 H, BUN 58 H, Creatinine 2.60 H, Estimated Creat Clear 25, Estimated GFR 24 L, Est GFR ( Amer) 29 L, Glucose 156 H, Calcium 9.1, Total Bilirubin 0.8, AST 51, ALT 29, Alkaline Phosphatase 108, Troponin I 0.11 H, NT-Pro-B Natriuret Pep 60889 H, Total Protein 7.0, Albumin 3.8, Globulin 3.2, Albumin/Globulin Ratio 1.2 Result diagrams: 10/31/20 12:10 10/31/20 12:10 Orders (Tests/Meds): ED MEDICATIONS Generic Name Dose Route Start Last Admin Trade Name Freq PRN Reason Stop Dose Admin Azithromycin 500 mg/ Sodium 250 mls @ 250 mls/hr 10/31/20 12:45 Chloride IV 11/14/20 12:44 Q24H JEREMÍAS Ceftriaxone Sodium 1 gm/ 50 mls @ 100 mls/hr 10/31/20 12:45 Sodium Chloride IV 11/14/20 12:44 Q24H JEREMÍAS Lactated Ringer's 1,000 mls @ 500 mls/hr 10/31/20 13:45 Lactated Ringer's 1000 Ml Bag IV 10/31/20 15:44 .Q2H JEREMÍAS Discontinued Medications Generic Name Dose Route Start Last Admin Trade Name Freq PRN Reason Stop Dose Admin Potassium Chloride 40 meq 10/31/20 13:16 Potassium Chloride 20meq/15ml Udc PO 10/31/20 13:17 ONCE ONE ORDERS Category Date Time Status Rapid PCR Covid and Flu A/B Stat Lab 10/31/20 12:55 Received Blood Culture Stat Micro 10/31/20 13:34 Ordered - Radiology Data #1 Image(s): Chest Image Reviewed: Yes I reviewed the patient's radiology results Preliminary Findings: Abnormal Right lower lobe consolidation - ECG Data Tracing #1 I reviewed this ECG and interpreted as documented below: A. fib, 90 bpm, nonspecific ST wave changes. Occasional PVC. ECG initial impr
[2020-10-31 12:30] LABS: Basophils # 0.1 K/mm3 (0-0.2); Basophils % 0.2 % (0.1-2.0); Eosinophils # 0.1 K/mm3 (0.0-0.4); Eosinophils % 0.3 % (0.1-12.0); Hematocrit 43.5 % (42.0-52.0); Hemoglobin 13.8 g/dL (14.1-18.0); Lymphocytes # 1.2 K/mm3 (0.7-4.5); Lymphocytes % 3.8 % (10-50); Mean Corpuscular HGB Conc 31.7 g/dL (31.8-35.4); Mean Corpuscular Hemoglobin 30.3 pg (27.0-31.2); Mean Corpuscular Volume 95.4 fl (80-94); Mean Platelet Volume 7.6 fl (7.4-10.4); Monocytes # 0.9 K/mm3 (0.1-1.0); Monocytes % 2.9 % (1.7-9.3); Neutrophils # 28.3 K/mm3 (1.8-7.8); Neutrophils % 92.8 % (37.0-80.0); Platelet Count 400 K/mm3 (142-424); Red Blood Count 4.56 M/mm3 (4.60-6.20); White Blood Count 30.5 K/mm3 (4.8-10.8)
[2020-10-31 12:33] LABS: Chloride 92 mmol/L (98-107); Sodium 140 mmol/L (136-145)
[2020-10-31 12:34] LABS: MANUAL DIFFERENTIAL MANUAL DIFFERENTIAL (MANUAL DIFF)
[2020-10-31 12:36] LABS: Alanine Aminotransferase 29 U/L (12-78); Albumin Level 3.8 g/dl (3.5-5.0); Albumin/Globulin Ratio 1.2 (1.1-1.8); Alkaline Phosphatase 108 U/L (38-126); Aspartate Amino Transferase 51 U/L (17-59); Bilirubin,Total 0.8 mg/dl (0.2-1.3); Blood Urea Nitrogen 58 mg/dl (9-20); Calcium 9.1 mg/dl (8.4-10.2); Carbon Dioxide 32 mmol/L (22.0-30.0); Creatinine Clearance Estimated 25 mL/min (50-200); Estimated Glomerular Filt Rate 24 ml/min (>60); GFR (African American) 29 ML/MIN (>60); Globulin 3.2 g/dL (1.3-3.2); Glucose 156 mg/dl (74-100)
[2020-10-31 12:43] LABS: Anion Gap 18.7 mEq/L (5-15)
[2020-10-31 12:44] LABS: NT Pro Brain Natriuretic Pep. 10400 pg/mL (0-450); Potassium 2.7 mmoL/L (3.5-5.1)
[2020-10-31 12:48] LABS: Troponin I 0.11 ng/ml (0.00-0.034)
--- NOTE | 2020-10-31 12:54 | ECG_ITS ---
APPROVED REPORT Exam: Resting ECG HR:98 bpm ECG Measurements Heart Rate 98 AXES QRSd 82 QRS -80 QT 340 T 258 QTc 434 Conclusion Atrial fibrillation with premature ventricular or aberrantly conducted complexes Left axis deviation Inferior-posterior infarct, age undetermined ST & T wave abnormality, consider lateral ischemia or digitalis effect Abnormal ECG Electronically signed by : Eyad Varghese MD 10/31/2020 18:07:08
[2020-10-31 13:02] LABS: Influenza A, PCR Not Detected (NotDetected); Influenza B, PCR Not Detected (NotDetected)
[2020-10-31 13:39] LABS: Lymphocytes % 6 % (10-50); Monocytes % 4 % (2-9); Neutrophils % 90 % (42-76); Platelet Estimate Normal; Total Cells Counted 100
[2020-10-31 13:55] LABS: Coronavirus 19, PCR Detected (NotDetected)
--- NOTE | 2020-10-31 16:30 | PC.NURSE ---
PT CONTINUALLY REMOVING O2 CANNULA, EDUCATED ON IMPORTANCE OF LEAVING IT ON.
--- NOTE | 2020-10-31 16:58 | PC.NURSE ---
Pt is refusing to leave v/s monitors on, he is spitting in the floor and removing his oxygen. Pt yells out that he cannot breathe but has been asked repeatedly to leave his oxygen on but he says he can't. Asked pt numerous times to stop spitting in the floor, states he cannot find his spittune despite several laying in the bed with him.
--- NOTE | 2020-10-31 19:36 | PC.NURSE ---
REPORT GIVEN TO CANDIDO.
--- NOTE | 2020-10-31 19:56 | PC.NURSE ---
PT ARRIVED TO FLOOR VIA STRETCHER FROM ED W/STAFF AT 1955
[2020-11-01] VITALS (12 sets, daily range): BP systolic 92–131; BP diastolic 58–75; PULSE 78–99; RESP 16–18; TEMP 36.4–36.9; O2SAT 81–97; BMI 19.3
--- NOTE | 2020-11-01 03:58 | PC.NURSE ---
Pt is A/O to self. He could state name and . Pt is on 4 L NC with O2 stats >90%. Pt has c/o of pain in back and neck area gave meds per MAR with relief. Pt slept well t/o night. VSS, call light within reach, will continue to monitor.
[2020-11-01 07:06] LABS: Anion Gap 15.3 mEq/L (5-15); Blood Urea Nitrogen 68 mg/dl (9-20); Calcium 8.3 mg/dl (8.4-10.2); Carbon Dioxide 33 mmol/L (22.0-30.0); Chloride 95 mmol/L (98-107); Chol/HDL Ratio 2.8 (1-3.5); Cholesterol 137 mg/dl (140-200); Creatinine Clearance Estimated 20 mL/min (50-200); Estimated Glomerular Filt Rate 23 ml/min (>60); GFR (African American) 28 ML/MIN (>60); Glucose 112 mg/dl (74-100); HDL Cholesterol 49 mg/dl (40-60); Magnesium 2.1 mg/dl (1.6-2.3); Potassium 3.3 mmoL/L (3.5-5.1); Sodium 140 mmol/L (136-145); Triglycerides 117 mg/dl (30-150); VLDL Cholesterol 23 mg/dL (0-40)
[2020-11-01 07:14] LABS: Basophils % 0.1 % (0.1-2.0); Hematocrit 40.2 % (42.0-52.0); Lymphocytes # 1.1 K/mm3 (0.7-4.5); Lymphocytes % 4.5 % (10-50); Mean Corpuscular HGB Conc 30.8 g/dL (31.8-35.4); Mean Corpuscular Hemoglobin 29.8 pg (27.0-31.2); Mean Corpuscular Volume 96.8 fl (80-94); Mean Platelet Volume 7.6 fl (7.4-10.4); Monocytes # 0.8 K/mm3 (0.1-1.0); Monocytes % 3.4 % (1.7-9.3); Neutrophils % 92.1 % (37.0-80.0); Platelet Count 379 K/mm3 (142-424); Red Blood Count 4.15 M/mm3 (4.60-6.20)
[2020-11-01 07:16] LABS: Direct LDL Cholesterol 39.99 mg/dL (100-129)
[2020-11-01 07:29] LABS: MANUAL DIFFERENTIAL MANUAL DIFFERENTIAL (MANUAL DIFF)
--- NOTE | 2020-11-01 08:00 | CA_ITS ---
APPROVED REPORT EXAM: Comprehensive 2D, Doppler, and color-flow Echocardiogram Treating Engineer Helper: Trina Leggett RDCS Ht: 6 ft 0 in Wt: 170lbs BSA: 1.99 BP: 94/74 mmHg Indications: Covid-19, Hypoxia, COPD, Smoker, murmur Echo Enhancing Agent Comments: Technically difficult study due to inablity to poistion patient. 2D Dimensions IVSd 1.01 cm LVEF (Visual) 51.90 % PWd 1.27 cm LA Volume 78.30 mL LVDd 4.37 cm LA Volume Index 39.910900 mL/m2 (M/F) 16-34 LVDs 3.29 cm Aortic Root 3.45 cm Left Atrium 4.42 cm LVOT 2.02 cm (M/F) 1.5-2.5 M-Mode Dimensions LA Diam 4.39 cm (1.9-4.0) Ao Diam 3.92 cm (2.0-3.7) EPSs 0.26 cm TAPSE 1.43 (<1.7) LV Diastology E Decel Time 217.00 (160-240 msec) E/A Ratio 2.87 MED E' 8.60 (< 7 cm/sec) MED A' 2.40 cm/s E'/MED E' Ratio 12.24 (>14) LAT E' 8.40 (<10 cm/sec) LAT A' 4.00 cm/s E/LAT E' Ratio 12.54 (>14) Aortic Valve LVOT Max 88.00 (70-110 cm/s) LVOT VTI 17.13 cm AoV Peak Chris. 213.00 (50-130 cm/s) AO Peak GR. 18.10 mmHg AO Mean GR. 8.90 (<5 mmHg) AO VTI 37.40 (18-25 cm) SIMRAN (VTI) 1.47 (2.5-4.5 cm2) Mitral Valve MV A Velocity 37.00 (40-130 cm/s) E/A Ratio 2.87 MV Decel. Time 217.00 (160-240 ms) Tricuspid Valve TR P. Velocity 290.00 cm/s RAP Estimate 10.00 mmHg RVSP 43.60 mmHg Left Ventricle Left atrium is mildly enlarged, left ventricle is normal size, mild concentric left ventricular hypertrophy, visually estimated ejection fraction 55% with no regional wall motion abnormality, diastolic parameters are inconclusive. Right Ventricle Right atrium and right ventricle mildly enlarged with normal contractility. Aortic Valve Aortic valve is minimally thickened and fibrosed with mild aortic stenosis, valve area is 1.5 cm???, there is no aortic insufficiency. Mitral Valve Mitral valve is minimally thickened, there is mild mitral regurgitation. Tricuspid Valve Tricuspid valve grossly normal, there is mild tricuspid regurgitation, calculated right ventricular systolic pressure is 44 mmHg. Pulmonic Valve Pulmonic valve is poorly visualized. Great Vessels Aortic root is normal size. Inferior vena cava is poorly visualized. Pericardium Trivial pericardial effusion noted. Conclusion 1. Mild biatrial enlargement, normal left ventricular size, mild concentric left ventricular hypertrophy, visually estimated ejection fraction 55% with no regional wall motion abnormality, diastolic parameters are inconclusive. 2. Mildly enlarged right ventricle with normal contractility. 3. Thickened and calcified aortic valve with mild aortic stenosis, there is no aortic insufficiency. 4. Mild mitral and tricuspid regurgitation, calculated right ventricular systolic pressure is 44 mmHg. 5. Trivial pericardial effusion noted. Inferior vena cava is not well visualized. Electronically signed by : Mert Lares MD 11/01/2020 18:07:21
--- NOTE | 2020-11-01 08:39 | HMH.PHAINT ---
MEDICATION RECONCILIATION COMPLETED USING MAR FROM EMILI SINGH.
--- NOTE | 2020-11-01 09:02 | HMH.PHAVTE ---
[facility] Pharmacy VTE Monitoring - Patient Demographics Admission date: 11/01/20 Report Date: 11/01/20 Time: 09:02 Allergies/Adverse Reactions: Patient Allergies No Known Allergies Allergy (Verified 11/23/18 12:21) Height: 1.83 m Weight: 64.637 kg Patient Problems: Current Active Problems COVID-19 (Acute) PNA (pneumonia) (Acute) Acute respiratory failure with hypoxia (Acute) BACILIO (acute kidney injury) (Acute) - VTE Risk Labs: VTE Related Lab Results Hgb 13.8 g/dL (14.1-18.0) L 10/31/20 12:10 Hct 40.2 % (42.0-52.0) L 11/01/20 06:17 Plt Count 379 K/mm3 (142-424) 11/01/20 06:17 BUN 68 mg/dl (9-20) H 11/01/20 06:17 Creatinine 2.70 mg/dl (0.66-1.25) H 11/01/20 06:17 Estimated Creat Clear 20 mL/min (50-200) 11/01/20 06:17 Was VTE Risk Assessment Performed: Yes VTE Risk Level: Low Risk Clinical Trial Participant: No - Prophylaxis VTE Prophylaxis Ordered?: Yes Types of VTE Prophylaxis: TEDS Knee High
[2020-11-01 09:06] LABS: Hypochromasia 2+; Lymphocytes % 3 % (10-50); Macrocytosis 1+; Monocytes % 4 % (2-9); Neutrophils % 93 % (42-76); Platelet Estimate Normal; Total Cells Counted 100
--- NOTE | 2020-11-01 09:20 | SW/DCPLANNER ---
Addendum entered by [facility] 11/03/20 09:26: This patient will discharge to [facility] today. Ginger gould/ Joaquin has stated that daughter will be to [facility] this AM to sign paperwork. I will also inform Parveen at [facility]. Addendum entered by [facility] 11/02/20 14:39: Ginger with [facility] has stated that she can accept this patient tomorrow once daughter completes paperwork tomorrow morning. Addendum entered by [facility] 11/02/20 10:18: Patients daughter called back and stated that she has been searching for placement for this patient. Daughter is agreeable to assist with paperwork at time of discharge. Addendum entered by [facility] 11/02/20 10:12: I have attempted to contact patients daughter (Leslie) regarding discharge plans: no answer VM left at this time. Addendum entered by [facility] 11/01/20 11:41: I have faxed patient information to Ginger at [facility] due to placement more than likely being needed at time of discharge. Original Note: This patient currently resides at [facility]. Due to patient being COVID positive patient could need placement at time of discharge. I will continue to follow up with patient and MD regarding this patient. Discharge date is unknown at this time.
[2020-11-01 10:04] LABS: Hemoglobin 12.4 g/dL (14.1-18.0)
--- NOTE | 2020-11-01 10:06 | HMH.HP ---
*Admission Date: 11/01/20 *Chief complaint: Shortness of Breath *History of present illness: 80-year-old male patient presented to the [facility] emergency department from [facility] [place] with reports of shortness of breath. Patient was limited verbally in ED but did report he hurt all over. He also reports he has longstanding ongoing pain issues since a young age. In the emergency department supplemental oxygen as needed, elevated white count of 30, creatinine 2.6, and decreased potassium of 2.7, he also was revealed to have elevated BNP of 10,400. He was also COVID-19 + October 18 To the emergency department he received azithromycin, ceftriaxone, and IV fluids, He also received potassium 40 mEq p.o. 10/31/20 CXR: FINDINGS: The cardiomediastinal silhouette and pulmonary vascularity are within normal limits. Peripheral consolidation is present in the right lung base laterally. COPD changes. Severe degenerative changes left shoulder IMPRESSION: Right lower lobe pneumonia Dictated by: Santosh Haas MD [facility] History I have reviewed the patient's past medical history: Yes Medical History: Reports:: Chronic Obstructive Pulmonary Disease (COPD) *Have you ever received a pneumonia vaccine?: No *Have you received a flu vaccine this season?: No - *Social History Smoking Status: Current every day smoker # Packs/Day (cigarettes): 1 Alcohol Intake: never *Occupational Status:: retired Housing: assisted living facility *Travel in the last 8 weeks: None Family Hx:: Unable to obtain Review of Systems - Review of Systems Review of systems:: unable to obtain Meds Home Medications Medication Instructions Recorded Confirmed Type Donepezil HCl [Aricept 10mg 10 mg PO HS 11/20/18 10/31/20 History tablet] Memantine HCl 10 mg PO BID 11/20/18 10/31/20 History Pentoxifylline 400 mg PO TID 11/20/18 10/31/20 History Albuterol Sulfate [Albuterol HFA 2 puffs IH Q6HP PRN #1 inh 11/23/18 10/31/20 Rx Inhaler] Ibuprofen [Ibuprofen 600mg 600 mg PO Q8HP PRN 30 Days #90 tab 01/22/19 10/31/20 Rx Tablet] oxycodone-acetaminophen 10 mg-325 1 tab PO QID #120 tab 08/30/21 09/13/21 Rx mg tablet hydroCHLOROthiazide [HCTZ 25mg 25 mg PO DAILY 10/18/20 10/31/20 History tab] Loperamide HCl [Loperamide] 2 mg PO Q4HP PRN 11/01/20 11/01/20 History Allergies Allergy/AdvReac Type Severity Reaction Status Date / Time No Known Allergies Allergy Verified 11/23/18 12:21 Exam Vital signs and Labs for Last 24 Hours: Temp Pulse Resp BP Pulse Ox 98.2 F 95 H 18 109/65 L 91 L 11/01/20 08:00 11/01/20 08:00 11/01/20 08:00 11/01/20 08:00 11/01/20 08:00 Laboratory Results - last 24 hr 10/31/20 12:10: WBC 30.5 H*, RBC 4.56 L, Hgb 13.8 L, Hct 43.5, MCV 95.4 H, MCH 30.3, MCHC 31.7 L, RDW 14.0, Plt Count 400, MPV 7.6, Neut % (Auto) 92.8 H, Lymph % (Auto) 3.8 L, [place] % (Auto) 2.9, Eos % (Auto) 0.3, Baso % (Auto) 0.2, Neut # (Auto) 28.3 H, Lymph # (Auto) 1.2, [place] # (Auto) 0.9, Eos # (Auto) 0.1, Baso # (Auto) 0.1, Total Counted 100, Neutrophils % (Manual) 90 H, Lymphocytes % (Manual) 6 L, Monocytes % (Manual) 4, Platelet Estimate Normal 10/31/20 12:10: Sodium 140, Potassium 2.7 L*, Chloride 92 L, Carbon Dioxide 32 H, Anion Gap 18.7 H, BUN 58 H, Creatinine 2.60 H, Estimated Creat Clear 25, Estimated GFR 24 L, Est GFR ( Amer) 29 L, Glucose 156 H, Calcium 9.1, Total Bilirubin 0.8, AST 51, ALT 29, Alkaline Phosphatase 108, Troponin I 0.11 H, NT-Pro-B Natriuret Pep 84144 H, Total Protein 7.0, Albumin 3.8, Globulin 3.2, Albumin/Globulin Ratio 1.2 10/31/20 12:55: SARS-CoV-2 (PCR) Detected A, Influenza A Untype (PCR) Not detected, Influenza Type B (PCR) Not detected 11/01/20 06:17: WBC 25.0 H*, RBC 4.15 L, Hgb 12.4 L D, Hct 40.2 L, MCV 96.8 H, MCH 29.8, MCHC 30.8 L, RDW 14.0, Plt Count 379, MPV 7.6, Neut % (Auto) 92.1 H, Lymph % (Auto) 4.5 L, [place] % (Auto) 3.4, Eos % (Auto) 0.0 L, Baso % (A
--- NOTE | 2020-11-01 11:32 | HMH.PULMCON ---
*Admission Date: 11/01/20 *Reason for consult:: Acute hypoxic respiratory failure, COVID-19 pneumonia. *History of present illness: Limited HPI given patient's inability to hear and not coherent. Mr. Prescott is a 8o-year-old male with self-reported history of smoking, COPD, presented to the hospital worsening respiratory failure and found to be COVID-19 pneumonia needing also supplemented to maintain his saturations and pulmonary was called for further management. [facility] History Medical History: Reports:: Chronic Obstructive Pulmonary Disease (COPD) *Have you ever received a pneumonia vaccine?: No *Have you received a flu vaccine this season?: No - *Social History Smoking Status: Current every day smoker # Packs/Day (cigarettes): 1 Alcohol Intake: never *Occupational Status:: retired Housing: assisted living facility *Travel in the last 8 weeks: None Family Hx:: Unable to obtain ROS - Review of Systems Limited - Cons Reports body ache(s) - Card Reports shortness of breath, Reports shortness of breath with activity - Resp Respiratory: Reports chest congestion, Reports cough, Reports dyspnea on exertion, Reports excessive phlegm production - [place] Musculoskeletal: Reports back pain Meds Home Medications Medication Instructions Recorded Confirmed Type Donepezil HCl [Aricept 10mg 10 mg PO HS 11/20/18 10/31/20 History tablet] Memantine HCl 10 mg PO BID 11/20/18 10/31/20 History Pentoxifylline 400 mg PO TID 11/20/18 10/31/20 History Albuterol Sulfate [Albuterol HFA 2 puffs IH Q6HP PRN #1 inh 11/23/18 10/31/20 Rx Inhaler] Ibuprofen [Ibuprofen 600mg 600 mg PO Q8HP PRN 30 Days #90 tab 01/22/19 10/31/20 Rx Tablet] oxycodone-acetaminophen 10 mg-325 1 tab PO QID #120 tab 10/17/20 10/31/20 Rx mg tablet hydroCHLOROthiazide [HCTZ 25mg 25 mg PO DAILY 10/18/20 10/31/20 History tab] Loperamide HCl [Loperamide] 2 mg PO Q4HP PRN 11/01/20 11/01/20 History Allergies Allergy/AdvReac Type Severity Reaction Status Date / Time No Known Allergies Allergy Verified 11/23/18 12:21 Exam - Constitutional Constitutional:: Present: no acute distress, comfortable - HENMT Exam HENMT: Present: normocephalic, atraumatic - Eye Exam Eyes:: Present: normal appearance both eyes and related structures - Neck Exam Neck:: Present: normal visual inspection - Respiratory Exam Respiratory:: Present: able to speak in complete sentences, no respiratory distress, crackles, wheezing - Cardiovascular Exam Cardiac:: Present: S1, S2 - GI Exam GI:: Present: soft - Skin Exam Skin: Present: warm, no rash - Neurological Exam Neurological: Present: awake. Absent: alert, normal cognition - Extremities Exam Extremities: Present: no cyanosis, no clubbing, no edema Internal Medicine - CN: Reslt - Labs CBC & Chem 7: 11/01/20 06:17 11/01/20 06:17 Labs: Short CBC 10/31/20 11/01/20 Range/Units 12:10 06:17 WBC 30.5 H* 25.0 H* (4.8-10.8) K/mm3 Hgb 13.8 L 12.4 L D (14.1-18.0) g/dL Hct 43.5 40.2 L (42.0-52.0) % Plt Count 400 379 (142-424) K/mm3 [facility] 10/31/20 11/01/20 12:10 06:17 Sodium 140 140 Potassium 2.7 L* 3.3 L D Chloride 92 L 95 L Carbon Dioxide 32 H 33 H BUN 58 H 68 H Creatinine 2.60 H 2.70 H Glucose 156 H 112 H D Calcium 9.1 8.3 L Cardiac Enzymes 10/31/20 Range/Units 12:10 Troponin I 0.11 H (0.00-0.034) ng/ml Liver Function 10/31/20 Range/Units 12:10 Total Bilirubin 0.8 (0.2-1.3) mg/dl AST 51 (17-59) U/L ALT 29 (12-78) U/L Alkaline Phosphatase 108 (38-126) U/L Albumin 3.8 (3.5-5.0) g/dl Assessment and Plan (1) BACILIO (acute kidney injury) Status: Acute Category: Medical Code(s): N17.9 - Acute kidney failure, unspecified (2) Leukocytosis Status: Acute Category: Medical Code(s): D72.829 - Elevated white blood cell count, unspecified (3) Hypokalemia Status: Acute Cat
--- NOTE | 2020-11-01 11:43 | CA_ITS ---
APPROVED REPORT Bilateral Lower Extremity Venous Study for DVT. Member Of Technical Staff: YOMAIRA BarksdaleT Indications Current Smoker Hypoxia,COVID Vein Imaging CFV (R): compressive, spontaneous, phasic, augmentation FEM (R): compressive, spontaneous, phasic, augmentation POP (R): compressive, spontaneous, phasic, augmentation PTV (R): Compressible GSV (R): Compressible Peroneals (R):Compressible GAS (R): Compressible CFV (L): compressive, spontaneous, phasic, augmentation FEM (L): compressive, spontaneous, phasic, augmentation POP (L): compressive, spontaneous, phasic, augmentation PTV (L): Compressible GSV (L): Compressible Peroneals (L):Compressible GAS (L): Compressible Findings Study suggests no evidence of DVT or SVT of the bilateral lower extremites. Conclusion Study suggests no evidence of DVT or SVT of the bilateral lower extremites. Electronically signed by : Santosh Haas MD 11/01/2020 16:50:52
[2020-11-01 13:10] LABS: D-Dimer 1.25 ug/mL (0.0-0.5)
[2020-11-01 13:41] LABS: Ferritin 215 ng/ml (17.9-464)
--- NOTE | 2020-11-01 17:47 | PC.NURSE ---
no acute changes since taking over care of this patient, pt has been resting, remains on 4L NC, has complained of pain in his back
[2020-11-02] VITALS (9 sets, daily range): BP systolic 87–110; BP diastolic 51–70; PULSE 75–116; RESP 18–22; TEMP 36.4–36.7; O2SAT 89–100; BMI 19.9
[2020-11-02 06:45] LABS: Basophils % 0.2 % (0.1-2.0); Eosinophils % 0.2 % (0.1-12.0); Hematocrit 33.3 % (42.0-52.0); Hemoglobin 11.3 g/dL (14.1-18.0); Lymphocytes % 5.4 % (10-50); Mean Corpuscular HGB Conc 33.8 g/dL (31.8-35.4); Mean Corpuscular Volume 97.6 fl (80-94); Monocytes # 0.7 K/mm3 (0.1-1.0); Monocytes % 3.6 % (1.7-9.3); Neutrophils # 17.3 K/mm3 (1.8-7.8); Neutrophils % 90.7 % (37.0-80.0); Platelet Count 276 K/mm3 (142-424); Red Blood Count 3.41 M/mm3 (4.60-6.20); Red Cell Distribution Width 14.1 % (11.5-17.5); White Blood Count 19.1 K/mm3 (4.8-10.8)
--- NOTE | 2020-11-02 06:45 | PC.NURSE ---
Patient has had an uneventful night this shift. No s/s of acute distress noted, call light within reach, bed at lowest level for safety; will continue to monitor.
[2020-11-02 06:50] LABS: MANUAL DIFFERENTIAL MANUAL DIFFERENTIAL (MANUAL DIFF)
[2020-11-02 06:57] LABS: Blood Urea Nitrogen 59 mg/dl (9-20); Calcium 7.9 mg/dl (8.4-10.2); Carbon Dioxide 30 mmol/L (22.0-30.0); Chloride 99 mmol/L (98-107); Creatinine Clearance Estimated 33 mL/min (50-200); Estimated Glomerular Filt Rate 39 ml/min (>60); GFR (African American) 47 ML/MIN (>60); Glucose 99 mg/dl (74-100); Sodium 139 mmol/L (136-145)
--- NOTE | 2020-11-02 07:06 | PC.NURSE ---
Received call from Nandini in lab for critical Potassium Level of 3.0; Dr. Senior notified and no new orders received at this time.
--- NOTE | 2020-11-02 09:36 | HMH.PULMPN ---
Internal Medicine - PN: Subj *Date: 11/02/20 *Time: 12:00 Interval history: No acute respiratory events overnight. Patient continues remain on nasal cannula. He still complains of back pain as his predominant problem Exam - Constitutional Constitutional:: Present: no acute distress, comfortable - HENMT Exam HENMT: Present: normocephalic, atraumatic - Eye Exam Eyes:: Present: normal appearance both eyes and related structures - Neck Exam Neck:: Present: normal visual inspection - Respiratory Exam Respiratory:: Present: able to speak in complete sentences, normal breath sounds - Cardiovascular Exam Cardiac:: Present: S1, S2 - GI Exam GI:: Present: soft - Skin Exam Skin: Present: warm, no rash - Neurological Exam Neurological: Present: awake - Extremities Exam Extremities: Present: no cyanosis, no clubbing, no edema Assessment and Plan (1) BACILIO (acute kidney injury) Status: Acute Category: Medical Code(s): N17.9 - Acute kidney failure, unspecified (2) Leukocytosis Status: Acute Category: Medical Code(s): D72.829 - Elevated white blood cell count, unspecified (3) Hypokalemia Status: Acute Category: Medical Code(s): E87.6 - Hypokalemia (4) Tobacco use Status: Acute Category: Social Hx Code(s): Z72.0 - Tobacco use (5) Mild dementia Status: Chronic Category: Medical Code(s): F03.90 - Unspecified dementia without behavioral disturbance (6) Pneumonia due to COVID-19 virus Status: Acute Category: Medical Code(s): U07.1 - COVID-19; J12.82 - Pneumonia due to coronavirus disease 2019 (7) COVID Status: Acute Category: Medical Code(s): U07.1 - COVID-19 - Assessment and plan all Dx Assessment and Plan for all problems:: Acute hypoxic respiratory failure: #COVID-19 pneumonia: #Community-acquired pneumonia: 80-year-old presumed history of smoking and COPD presently worsening respiratory: Found to be positive for COVID-19 pneumonia. Chest x-ray showed bilateral lower lobe pulmonary pulmonary infiltrates right greater than left along with evidence of volume overload. auscultation crackles with minimal wheezing. CRP at 303 D-dimer elevated to 1.25. No evidence of lower extremity Doppler. No CT PE performed. We will closely monitor. Leukocytosis improving, decreased from 30-19. Renal function improving, creatinine today at 1.70. Patient still noted to be hypokalemic. BNP on admission elevated at 10,400. Hypokalemia, volume optimization and BACILIO management as per primary team Plan: -Obtain Sputum cultures. Follow with blood culture results -Continue dexamethasone for COVID-19 pneumonia. Recommend initiating remdesivir given improvement in his renal function with the pharmacy consult -Continue ceftriaxone and AZithromax for community-acquired pneumonia. -DuoNebs every 6 hours and budesonide every 12 scheduled. -Recommend Chemical DVT and GI ulcer prophylaxis Thank for involving pulmonary in this patient care. We will continue to follow.
[2020-11-02 09:37] LABS: Lymphocytes % 5 % (10-50); Monocytes % 1 % (2-9); Neutrophils % 94 % (42-76); Platelet Estimate Normal; Total Cells Counted 100
[2020-11-02 09:38] LABS: Hypochromasia 1+; Macrocytosis 1+
--- NOTE | 2020-11-02 11:37 | HMH.PTEV ---
Physical Therapy Evaluation Rehab PT IP Evaluation Start: 11/02/20 10:39 Freq: ONCE Status: Active Protocol: Document 11/02/20 11:00 SUNITA (Rec: 11/02/20 11:37 RACHELOLIVA [id number]) Subjective/History History History This is the initial IP PT evalaution for Miko Easton. 80-year-old male patient presented to the [facility] emergency department from [facility] [place] with reports of shortness of breath . Patient was limited verbally in ED but did report he hurt all over. Subjective Subjective Pt c/o severe back, neck, Left shoulder pain. Pt coninually asked for pain medicine even when told he just had taken it . Pt was unable to tell therapist where he lived or what situation he came from - pt reported yes when asked if he used a walker, but then said no he used a wheelchair w / buttons, an electric whellchair Rehab PT IP Eval Objective Appearance Patient Behavior Fearful,Confused Patient Orientation Name,Birthday,Situation Difficulty following instructions moderate Speech Pattern Appropriate Ambulation Patient Able to Ambulate Yes Ambulation Observation IP General Gait Pattern Observation Ataxic Gait,Shuffling Step Ambulation Distance (feet) 1 Ambulation Assistive Device None Ambulation Ability Maximum x 1 (75% assist) Balance Ability to Arise Unable Sitting Balance Steady, safe Standing Balance Unsteady Dynamic Sitting Balance Ability Fair Dynamic Standing Balance Ability Poor Transfers Bed Transfer Ability Maximum x 1 (75% assist) Sit to Stand Bed Transfer Ability Maximum x 1 (75% assist) Rehab PT IP prob,goals,plan Problems Date of Evaluation: 11/02/20 PT IP Problems Bed Mobility,Transfers,Gait, Balance,Self care,Safety Rehab Potential Rehab Potential Poor Equipment Needs Assistive Devices Rolling / Wheeled Walker, Wheelchair Plan PT Intervention Plan Bed Mobility,Transfers,Gait, Balance,Self care,Therapeutic
--- NOTE | 2020-11-02 13:47 | HMH.OTEV ---
OT Inpatient Evaluation Rehab OT IP Evaluation Start: 11/02/20 10:40 Freq: ONCE Status: Complete Protocol: Document 11/02/20 13:37 [facility] (Rec: 11/02/20 13:47 [facility] [id number]) Rehab OT IP Assessment Subjective History Pt oriented x 2 on arrival. Pt agreeable to engage in therapy evaluation. Pt reporting over and over he is hurting all over and requesting pain medicine. Pt was admitted via ED on 10/31/20 due to COVID-19 and acute respiratory failure with hypoxia. Pt has a past medical history of Chronic Obstructive Pulmonary Disease (COPD). Pt resides at an assisted living facility prior to being hospitalized. Pt is not able to provide PLOF. When asked about dressing, bathing, and walking he reports not good . Due to pt being a poor historian, therapist is unaware of PLOF. Subjective I need medicine. Pt required min assist x 2 to complete bed mobility and go from supine to sitting at eob. Pt stood from eob with min assist x 2. Upon standing, pt had soiled himself and required changing. Pt remained standing for ~3 minutes while SRNA complete kennedy care/toileting hygiene. Pt then completed a step transfer from eob to chair. Pt was dependent to pull depends up. Pt sat in chair with call castro and all other needs in reach. Objective Patient Orientation Person,Birthday Upper Extremity Gross ROM WFL Bed Mobility bed mobility-scooting,bed mobility - supine/sit,bed mobility - rolling Assist Level Minimal x 2 (25% assist) Transfer Training Sit/Stand Transfer Assist Level Minimal x 2 (25% assist) Chair Transfer Ability Minimal x 2 (25% assist) Chair Transfer Alvaro
--- NOTE | 2020-11-02 14:15 | P.PN_ITS ---
Internal Medicine - PN: Subj *Date: 11/02/20 *Time: 08:45 Interval history: pt sitting up in bed states he is very hungry and wants something to eat. pt has no c/o. no cough in room Exam Vital signs and Labs for Last 24 Hours: Temp Pulse Resp BP Pulse Ox 97.6 F 76 20 110/70 100 11/02/20 12:00 11/02/20 12:00 11/02/20 12:00 11/02/20 12:00 11/02/20 12:00 Laboratory Results - last 24 hr 11/02/20 06:31: WBC 19.1 H, RBC 3.41 L, Hgb 11.3 L, Hct 33.3 L, MCV 97.6 H, MCH 33.0 H, MCHC 33.8, RDW 14.1, Plt Count 276 D, MPV 8.0, Neut % (Auto) 90.7 H, Lymph % (Auto) 5.4 L, [place] % (Auto) 3.6, Eos % (Auto) 0.2, Baso % (Auto) 0.2, Neut # (Auto) 17.3 H, Lymph # (Auto) 1.0, [place] # (Auto) 0.7, Eos # (Auto) 0.0, Baso # (Auto) 0.0, Total Counted 100, Neutrophils % (Manual) 94 H, Lymphocytes % (Manual) 5 L, Monocytes % (Manual) 1 L, Platelet Estimate Normal, Hypochromasia 1+, Macrocytosis 1+ 11/02/20 06:31: Sodium 139, Potassium 3.0 L, Chloride 99, Carbon Dioxide 30, Anion Gap 13.0, BUN 59 H, Creatinine 1.70 H D, Estimated Creat Clear 33, Estimated GFR 39 L, Est GFR ( Amer) 47 L D, Glucose 99, Calcium 7.9 L I & O for Last 24 hours: Intake & Output 10/31/20 11/01/20 11/02/20 11/03/20 11:59 11:59 11:59 11:59 Intake Total 1600 / 1600 120 / 120 Output Total 0 / 0 Balance 0 / 0 1600 / 1600 120 / 120 Weight 170 lb 142 lb 8 oz 147 lb 5 oz - Constitutional chronically ill appearing - *Routine HEENT Exam Head: Present: normocephalic Eye: Present: PERRL ENT: Present: mucous membranes moist - *Routine Neck Exam Present: supple. Absent: lymphadenopathy - *Routine Respiratory Exam Present: wheezes - *Routine Cardiovascular Exam Present: RRR - *Routine Abdominal Exam Present: soft, normoactive bowel sounds. Absent: tenderness - *Routine Extremities Exam Absent: cyanosis, clubbing, edema - *Routine Skin Exam Present: warm. Absent: rash - *Routine Neurological Exam Present: alert - Routine Psychiatric Exam Present: normal affect Assessment and Plan (1) BACILIO (acute kidney injury) Status: Acute Category: Medical Code(s): N17.9 - Acute kidney failure, unspecified (2) Leukocytosis Status: Acute Category: Medical Code(s): D72.829 - Elevated white blood cell count, unspecified (3) Hypokalemia Status: Acute Category: Medical Code(s): E87.6 - Hypokalemia (4) Tobacco use Status: Acute Category: Social Hx Code(s): Z72.0 - Tobacco use (5) Mild dementia Status: Chronic Category: Medical Code(s): F03.90 - Unspecified dementia without behavioral disturbance (6) Pneumonia due to COVID-19 virus Status: Acute Category: Medical Code(s): U07.1 - COVID-19; J12.82 - Pneumonia due to coronavirus disease 2019 (7) COVID Status: Acute Category: Medical Code(s): U07.1 - COVID-19 - Assessment and plan all Dx Assessment and Plan for all problems:: rounded with tyshawn all orders per dr villagran waiting for placement speech eval
--- NOTE | 2020-11-02 14:31 | HMH.SLDYSPHA ---
Speech & Language Evaluation Speech/Language Dysphagia Evaluation Start: 11/02/20 14:20 Freq: ONCE Status: Active Protocol: Document 11/02/20 14:20 JOHNRAMONITAJOSÉ MANUELCHELLE (Rec: 11/02/20 14:31 JOHNRAMONITAMARIKA [id number]) Dysphagia Assess/Goals/Plan Assessment Date of Evaluation: 11/02/20 Evaluation Type Initial Certification Assessment/Problems Dysphagia Does Patient Qualify for Service No Qualify/Failure Comment Based on the results of a clinical swallow evaluation, patient does not quaify for skilled speech therapy services at this time. Recommendations PHYSICIAN CERTIFICATION: The specified therapy services are required, authorized, and reviewed every 30 days. Diet Recommendations Normal Liquid Type Recommendations Normal/Thin SL Swallow Guidelines Standard Aspiration Prec.,Eat at slow rate Dysphagia Swallow Precautions/Strategies Sitting Upright (90 deg),Small Bites and Sips Place Food on Either side of Mouth Plan Pt/Guardian verbally ack understanding Yes of dx/prognosis/goals Pt/Guardian verbally ack understanding Yes of/consent to tx prog G -code Required No Education Instructions provided Results of clinical swallow evaluation and diet recommendations discussed with case management, nursing, and patient. Pt/Caregiver able to recall information Able to recall/restate,Unable to ind. understand, Reinforcement needed Reinforcement needed Yes Speech & Language HPI Language Primary Language [place] General Information General Current Food Consistancy Regular,Thin Liquids Dentition Poor Dentition Oxygen Status Nasal Cannula Facial Symmetry Symmetrical Ability to Follow Directions Poor Communication Ability No Impairment Dysphagia:Food Presentation Evaluation Food Type Pureed,Regular,Liquid,Pudding Dysphagia Evaluation Summary Clinical swallow evaluation completed to analyze and assess oropharyngeal swallow. Patient unable to follow commands throughout. Trialed thin liquids with no s/sxs of aspiration via cup or straw. Trialed pudding and puree without any s/xs of aspiration or sig
--- NOTE | 2020-11-02 17:26 | DIET.NUTRFU ---
PO intakes <25% and pt with difficulty swallowing though LPN HOME HEALTH saw him and recommended regular diet. Moderate soft modifications were made for ease of eating. Diet liberalized from low sodium to regular and daily ensure as well as assistance with feeding added to order. Pt with dementia, please encourage/cue at meal times and offer supplements as needed.
--- NOTE | 2020-11-02 19:45 | PC.NURSE ---
Ilene on 3 L . Alert to self. Meds per apr. CB in reach. Pt up to chair. VSS
[2020-11-03] VITALS: BP 113/65; PULSE 69; RESP 19; TEMP 36.6; O2SAT 93
[2020-11-03 04:00] VITALS: BP 109/67; PULSE 78; RESP 19; TEMP 36.6; O2SAT 94
--- NOTE | 2020-11-03 04:33 | PC.NURSE ---
pt is alert to self only, remains on 3L NC, O2 sats 92-94%, no complaints of SOA, has complained of pain this shift that was treated effectively per MAR
[2020-11-03 06:23] LABS: Basophils % 0.1 % (0.1-2.0); Eosinophils % 0.1 % (0.1-12.0); Hematocrit 34.8 % (42.0-52.0); Hemoglobin 10.6 g/dL (14.1-18.0); Lymphocytes # 0.7 K/mm3 (0.7-4.5); Lymphocytes % 5.7 % (10-50); Mean Corpuscular HGB Conc 30.5 g/dL (31.8-35.4); Mean Corpuscular Hemoglobin 29.9 pg (27.0-31.2); Mean Corpuscular Volume 98.1 fl (80-94); Mean Platelet Volume 7.6 fl (7.4-10.4); Monocytes # 0.4 K/mm3 (0.1-1.0); Monocytes % 3.5 % (1.7-9.3); Neutrophils # 11.7 K/mm3 (1.8-7.8); Neutrophils % 90.7 % (37.0-80.0); Platelet Count 301 K/mm3 (142-424); Red Blood Count 3.54 M/mm3 (4.60-6.20); Red Cell Distribution Width 14.5 % (11.5-17.5); White Blood Count 12.9 K/mm3 (4.8-10.8)
[2020-11-03 06:25] VITALS: PULSE 75; PULSE 78; O2SAT 100
[2020-11-03 06:25] LABS: MANUAL DIFFERENTIAL MANUAL DIFFERENTIAL (MANUAL DIFF)
[2020-11-03 06:37] LABS: Alanine Aminotransferase 30 U/L (12-78); Albumin Level 2.7 g/dl (3.5-5.0); Alkaline Phosphatase 74 U/L (38-126); Anion Gap 10.6 mEq/L (5-15); Aspartate Amino Transferase 71 U/L (17-59); Bilirubin,Total 0.2 mg/dl (0.2-1.3); Blood Urea Nitrogen 43 mg/dl (9-20); Calcium 8.3 mg/dl (8.4-10.2); Carbon Dioxide 31 mmol/L (22.0-30.0); Chloride 99 mmol/L (98-107); Creatinine Clearance Estimated 47 mL/min (50-200); Estimated Glomerular Filt Rate 58 ml/min (>60); GFR (African American) 70 ML/MIN (>60); Globulin 2.6 g/dL (1.3-3.2); Glucose 103 mg/dl (74-100); Potassium 3.6 mmoL/L (3.5-5.1); Sodium 137 mmol/L (136-145); Total Protein,Serum 5.3 g/dl (6.3-8.2)
[2020-11-03 06:54] LABS: Lymphocytes % 10 % (10-50); Monocytes % 2 % (2-9); Neutrophils % 88 % (42-76); Platelet Estimate Normal; Total Cells Counted 100
[2020-11-03 06:55] LABS: Hypochromasia 2+; Macrocytosis 2+
[2020-11-03 08:00] VITALS: BP 108/49; PULSE 84; RESP 17; TEMP 36.4; O2SAT 91; O2SAT 94
--- NOTE | 2020-11-03 09:15 | HMH.DCSUM ---
General - General Admission date:: 10/31/20 Discharge date: 11/03/20 HPI HPI: 80-year-old male patient presented to the [facility] emergency department from [facility] [place] with reports of shortness of breath. Patient was limited verbally in ED but did report he hurt all over. He also reports he has longstanding ongoing pain issues since a young age. In the emergency department supplemental oxygen as needed, elevated white count of 30, creatinine 2.6, and decreased potassium of 2.7, he also was revealed to have elevated BNP of 10,400. He was also COVID-19 + October 18 To the emergency department he received azithromycin, ceftriaxone, and IV fluids, He also received potassium 40 mEq p.o. 10/31/20 CXR: FINDINGS: The cardiomediastinal silhouette and pulmonary vascularity are within normal limits. Peripheral consolidation is present in the right lung base laterally. COPD changes. Severe degenerative changes left shoulder IMPRESSION: Right lower lobe pneumonia Dictated by: Santosh Haas MD Hospital Course Hospital Course: Laboratory Tests 10/31/20 10/31/20 10/31/20 12:10 12:10 12:55 WBC 30.5 H* RBC 4.56 L Hgb 13.8 L Hct 43.5 MCV 95.4 H MCH 30.3 MCHC 31.7 L RDW 14.0 Plt Count 400 MPV 7.6 Neut % (Auto) 92.8 H Lymph % (Auto) 3.8 L [place] % (Auto) 2.9 Eos % (Auto) 0.3 Baso % (Auto) 0.2 Neut # (Auto) 28.3 H Lymph # (Auto) 1.2 [place] # (Auto) 0.9 Eos # (Auto) 0.1 Baso # (Auto) 0.1 Total Counted 100 Neutrophils % (Manual) 90 H Lymphocytes % (Manual) 6 L Monocytes % (Manual) 4 Platelet Estimate Normal Hypochromasia Macrocytosis D-Dimer Sodium 140 Potassium 2.7 L* Chloride 92 L Carbon Dioxide 32 H Anion Gap 18.7 H BUN 58 H Creatinine 2.60 H Estimated Creat Clear 25 Estimated GFR 24 L Est GFR ( Amer) 29 L Glucose 156 H Calcium 9.1 Magnesium Ferritin Total Bilirubin 0.8 AST 51 ALT 29 Alkaline Phosphatase 108 Troponin I 0.11 H C-Reactive Protein NT-Pro-B Natriuret Pep 86066 H Total Protein 7.0 Albumin 3.8 Globulin 3.2 Albumin/Globulin Ratio 1.2 Triglycerides Cholesterol LDL Cholesterol Direct VLDL Cholesterol HDL Cholesterol Cholesterol/HDL Ratio SARS-CoV-2 (PCR) Detected A Influenza A Untype (PCR) Not detected Influenza Type B (PCR) Not detected 11/01/20 11/01/20 11/01/20 06:17 06:17 12:40 WBC 25.0 H* RBC 4.15 L Hgb 12.4 L D Hct 40.2 L MCV 96.8 H MCH 29.8 MCHC 30.8 L RDW 14.0 Plt Count 379 MPV 7.6 Neut % (Auto) 92.1 H Lymph % (Auto) 4.5 L [place] % (Auto) 3.4 Eos % (Auto) 0.0 L Baso % (Auto) 0.1 Neut # (Auto) 23.0 H Lymph # (Auto) 1.1 [place] # (Auto) 0.8 Eos # (Auto) 0.0 Baso # (Auto) 0.0 Total Counted 100 Neutrophils % (Manual) 93 H Lymphocytes % (Manual) 3 L Monocytes % (Manual) 4 Platelet Estimate Normal Hypochromasia 2+ Macrocytosis 1+ D-Dimer 1.25 H Sodium 140 Potassium 3.3 L D Chloride 95 L Carbon Dioxide 33 H Anion Gap 15.3 H BUN 68 H Creatinine 2.70 H Estimated Creat Clear 20 Estimated GFR 23 L Est GFR ( Amer) 28 L Glucose 112 H D Calcium 8.3 L Magnesium 2.1 Ferritin Total Bilirubin AST ALT Alkaline Phosphatase Troponin I C-Reactive Protein NT-Pro-B Natriuret Pep Total Protein Albumin Globulin Albumin/Globulin Ratio Triglycerides 117 Cholesterol 137 L LDL Cholesterol Direct 39.99 L VLDL Cholesterol 23 HDL Cholesterol 49 Cholesterol/HDL Ratio 2.8 SARS-CoV-2 (PCR) Influenza A Untype (PCR) Influenza Type B (PCR) 11/01/20 11/01/20 11/02/20 12:40 12:40 06:31 WBC 19.1 H RBC 3.41 L Hgb 11.3 L Hct 33.3 L MCV 97.
--- NOTE | 2020-11-03 11:47 | P.PN_ITS ---
Internal Medicine - PN: Subj *Date: 11/03/20 *Time: 11:47 Interval history: No acute respiratory events overnight. Exam - Constitutional Constitutional:: Present: no acute distress, comfortable - HENMT Exam HENMT: Present: normocephalic, atraumatic - Eye Exam Eyes:: Present: normal appearance both eyes and related structures - Neck Exam Neck:: Present: normal visual inspection - Respiratory Exam Respiratory:: Present: able to speak in complete sentences, no respiratory distress. Absent: wheezing - Cardiovascular Exam Cardiac:: Present: S1, S2 - GI Exam GI:: Present: soft - Skin Exam Skin: Present: warm, no rash - Neurological Exam Neurological: Present: alert, awake - Extremities Exam Extremities: Present: no cyanosis, no clubbing, no edema Assessment and Plan (1) BACILIO (acute kidney injury) Status: Acute Category: Medical Code(s): N17.9 - Acute kidney failure, unspecified (2) Leukocytosis Status: Acute Category: Medical Code(s): D72.829 - Elevated white blood cell count, unspecified (3) Hypokalemia Status: Acute Category: Medical Code(s): E87.6 - Hypokalemia (4) Tobacco use Status: Acute Category: Social Hx Code(s): Z72.0 - Tobacco use (5) Mild dementia Status: Chronic Category: Medical Code(s): F03.90 - Unspecified dementia without behavioral disturbance (6) Pneumonia due to COVID-19 virus Status: Acute Category: Medical Code(s): U07.1 - COVID-19; J12.82 - Pneumonia due to coronavirus disease 2019 (7) COVID Status: Acute Category: Medical Code(s): U07.1 - COVID-19 - Assessment and plan all Dx Assessment and Plan for all problems:: Acute hypoxic respiratory failure: #COVID-19 pneumonia: #Community-acquired pneumonia: 80-year-old presumed history of smoking and COPD presently worsening respiratory: Found to be positive for COVID-19 pneumonia. Chest x-ray showed bilateral lower lobe pulmonary pulmonary infiltrates right greater than left along with evidence of volume overload. auscultation crackles with minimal wheezing. CRP at 303 D-dimer elevated to 1.25. No evidence of lower extremity Doppler. No CT PE performed. We will closely monitor. Leukocytosis improving, decreased from 30-19. Renal function improving, creatinine today at 1.70. Patient still noted to be hypokalemic. BNP on admission elevated at 10,400. Hypokalemia, volume optimization and BACILIO management as per primary team Plan: -Obtain Sputum cultures. -Continue dexamethasone for COVID-19 pneumonia x 5 days -Continue ceftriaxone and AZithromax for community-acquired pneumonia, can de- escalate levofloxacin on discharge to complete a total of 5-day course -DuoNebs every 6 hours and budesonide every 12 scheduled, recommend discharging patient on triple inhaler therapy along with albuterol every 6 hours as needed -Recommend Chemical DVT and GI ulcer prophylaxis Thank for involving pulmonary in this patient care. We will continue to follow.
== END 2020-11-03 11:49 | DRG 177 ==
LOC: ER 13:34 → 2ND 22:28
PROVIDERS: Internal Medicine Pulmonary Disease; Nurse Practitioner Family; Admitting Provider Emergency Medicine; Emergency Provider Family Medicine; Visit Provider Emergency Medicine
DX: U07.1 COVID-19 (principal); J96.01 Acute respiratory failure with hypoxia; J18.9 Pneumonia, unspecified organism; N17.9 Acute kidney failure, unspecified; J44.0 Chronic obstructive pulmonary disease with (acute) lower respiratory infection; F17.210 Nicotine dependence, cigarettes, uncomplicated; F03.90 Unspecified dementia, unspecified severity, without behavioral disturbance, psychotic disturbance, mood disturbance, and anxiety; E87.6 Hypokalemia
CPT/HCPCS: 36415; 71045; 80048; 80053; 80061; 82728; 83735; 83880; 84484; 85007; 85025; 85378; 86140; 87040; 92610; 93005; 93306; 93970; 94640; 94760; 94761; 96365; 96367; 97163; 97166; 97530; 99284; C9803; J0456; U0003; U0005

== ENCOUNTER 2020-11-15 14:45 | Emergency (ER) | payer MEDICARE, MEDICAID, SELFPAY ==
[2020-11-15 14:22] VITALS: BP 115/71; PULSE 89; RESP 18; TEMP 36.8; O2SAT 96; BMI 28.2
--- NOTE | 2020-11-15 14:35 | CA_ITS ---
APPROVED REPORT Bilateral Lower Extremity Venous Study for DVT. 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 Lower Extremity Edema: Bilateral Current Smoker calf swelling, pain, post covid Vein Imaging CFV (R): compressive, spontaneous, phasic, augmentation SFJ (R): compressive, spontaneous, phasic, augmentation FEM (R): compressive, spontaneous, phasic, augmentation POP (R): compressive, spontaneous, phasic, augmentation DFV (R): compressive, spontaneous, phasic, augmentation PTV (R): compressive, spontaneous, phasic, augmentation GSV (R): difficult to image SSV (R): Not Visualized Peroneals (R):Not Visualized GAS (R): difficult to image CFV (L): compressive, spontaneous, phasic, augmentation SFJ (L): compressive, spontaneous, phasic, augmentation FEM (L): compressive, spontaneous, phasic, augmentation POP (L): compressive, spontaneous, phasic, augmentation DFV (L): compressive, spontaneous, phasic, augmentation PTV (L): difficult to image GSV (L): difficult to image SSV (L): Not Visualized Peroneals (L):Not Visualized GAS (L): difficult to image Findings Bilateral lower extremity venous doppler appears negative for DVT/SVT. Very difficult exam, pt has interstitial edema thru out both extremities. Limited images. Conclusion Bilateral lower extremity venous doppler appears negative for DVT/SVT. Very difficult exam, pt has interstitial edema thru out both extremities. Limited images. Electronically signed by : Santosh Haas MD 11/16/2020 17:11:23
--- NOTE | 2020-11-15 15:00 | HMH.EDGENADL ---
ED Disposition Clinical Impression: Swelling of lower extremity, Acute kidney injury superimposed on CKD Disposition: Home, Self-Care Condition on Discharge: Fair Instructions: DI for Dependent Edema, DI for Peripheral Edema -- Bilateral, Acute Kidney Injury, Chronic Kidney Disease Additional Instructions: You have been evaluated for lower extremity swelling, most likely due to CHF, dependent edema. Please take all medications as prescribed including diuretics. Please wear compression stockings and elevate your feet. Follow-up with your primary care doctor in 24-48hrs for repeat renal function testing, your creatinine was elevated today. Return to the emergency department at once for any new or worsening symptoms Referrals: Provider,Referral, [Primary Care Provider] - Time of Disposition: 18:06 - Critical Care Critical Care Time: No Attestation: On 11/15/20, the high probability of a clinically significant, sudden or life threatening deterioration of the following system(s) required my full and direct attention, intervention and personal management. The time I documented below is in addition to time spent performing reported procedures but includes the following listed in this critical care notation. Medical Decision Making - Medical Records Medical records reviewed: Yes: I reviewed the patient's medical records. - Teddy Inquiry Pt receiving controlled substance: No Vital Signs: 11/15/20 14:22 Temperature 98.2 F Temperature Source Oral Pulse Rate [Right Radial] 89 Respiratory Rate 18 Blood Pressure [Right Arm] 115/71 Blood Pressure Mean [Right Arm] 85 Blood Pressure Source [Right Arm] Automatic Cuff Blood Pressure Position [Right Arm] Sitting 02 Sat by Pulse Oximetry 96 Oxygen Delivery Method Nasal Cannula Oxygen Flow Rate (LPM) 3 - Lab Data Lab Results 11/15/20 16:50: WBC 10.3, RBC 3.62 L, Hgb 10.8 L, Hct 35.2 L, MCV 97.0 H, MCH 29.8, MCHC 30.7 L, RDW 15.1, Plt Count 319, MPV 8.5, Neut % (Auto) 87.2 H, Lymph % (Auto) 6.8 L, [place] % (Auto) 5.3, Eos % (Auto) 0.4, Baso % (Auto) 0.2, Neut # (Auto) 9.0 H, Lymph # (Auto) 0.7, [place] # (Auto) 0.5, Eos # (Auto) 0.0, Baso # (Auto) 0.0 11/15/20 16:50: Sodium 132 L, Potassium 3.1 L, Chloride 92 L, Carbon Dioxide 26, Anion Gap 17.1 H, BUN 75 H, Creatinine 2.60 H, Estimated Creat Clear 32, Estimated GFR 24 L, Est GFR ( Amer) 29 L, Glucose 95, Calcium 7.6 L, Total Bilirubin 0.4, AST 28, ALT 16, Alkaline Phosphatase 103, Total Protein 6.1 L, Albumin 3.0 L, Globulin 3.1, Albumin/Globulin Ratio 1.0 L 11/15/20 16:50: NT-Pro-B Natriuret Pep 2780 H Result diagrams: 11/15/20 16:50 11/15/20 16:50 Orders (Tests/Meds): ORDERS Category Date Time Status Complete Blood Count Auto Diff Stat Lab 11/15/20 16:50 Results Urinalysis and Microscopic Stat Lab 11/15/20 14:35 Ordered Medical Decision Narrative: In summary this is an 80-year-old male who recently recovered from Covid, presenting to the emergency department with foot and leg swelling. Patient clinically stable on arrival. Vital signs within normal limits. Concern for fluid third spacing, CHF, dependent edema, peripheral vascular disease, DVT. Will obtain CBC, CMP, BNP, bilateral duplex lower extremity ultrasound. Initial laboratory results show elevated creatinine at 2.6. Patient's creatinine has alternated between 1.6 and 2.6. The last time it was this high was when he was admitted. He has slight hyponatremia and hypokalemia. BNP elevated at 2700. Ultrasound of the lower extremity shows no DVT. On reassessment patient is tolerating oral intake in the emergency department. Counseled on salt restriction. Recommended he follow-up closely with his PCP. Will need repeat renal function panel in 24 to 48 hours. General Adult HPI - General Chief complaint: Extremity Problem,Nontraumatic Stated complaint: BLE EDEMA Time Seen by Provider: 11/15/20 14:50 Mode of Arrival: EMS Limitations: No Limita
--- NOTE | 2020-11-15 15:22 | PC.NURSE ---
cv lab staff at
[2020-11-15 17:19] LABS: Basophils % 0.2 % (0.1-2.0); Eosinophils % 0.4 % (0.1-12.0); Hematocrit 35.2 % (42.0-52.0); Hemoglobin 10.8 g/dL (14.1-18.0); Lymphocytes # 0.7 K/mm3 (0.7-4.5); Lymphocytes % 6.8 % (10-50); Mean Corpuscular HGB Conc 30.7 g/dL (31.8-35.4); Mean Corpuscular Hemoglobin 29.8 pg (27.0-31.2); Mean Platelet Volume 8.5 fl (7.4-10.4); Monocytes # 0.5 K/mm3 (0.1-1.0); Monocytes % 5.3 % (1.7-9.3); Neutrophils % 87.2 % (37.0-80.0); Platelet Count 319 K/mm3 (142-424); Red Blood Count 3.62 M/mm3 (4.60-6.20); Red Cell Distribution Width 15.1 % (11.5-17.5); White Blood Count 10.3 K/mm3 (4.8-10.8)
[2020-11-15 17:27] LABS: MANUAL DIFFERENTIAL MANUAL DIFFERENTIAL (MANUAL DIFF)
[2020-11-15 17:28] LABS: Chloride 92 mmol/L (98-107)
[2020-11-15 17:29] LABS: Potassium 3.1 mmoL/L (3.5-5.1); Sodium 132 mmol/L (136-145)
[2020-11-15 17:31] LABS: Alanine Aminotransferase 16 U/L (12-78); Aspartate Amino Transferase 28 U/L (17-59); Blood Urea Nitrogen 75 mg/dl (9-20); Creatinine Clearance Estimated 32 mL/min (50-200); Estimated Glomerular Filt Rate 24 ml/min (>60); GFR (African American) 29 ML/MIN (>60)
[2020-11-15 17:32] LABS: Alkaline Phosphatase 103 U/L (38-126); Anion Gap 17.1 mEq/L (5-15); Bilirubin,Total 0.4 mg/dl (0.2-1.3); Calcium 7.6 mg/dl (8.4-10.2); Carbon Dioxide 26 mmol/L (22.0-30.0); Globulin 3.1 g/dL (1.3-3.2); Glucose 95 mg/dl (74-100); Total Protein,Serum 6.1 g/dl (6.3-8.2)
[2020-11-15 17:41] LABS: NT Pro Brain Natriuretic Pep. 2780 pg/mL (0-450)
[2020-11-15 19:18] VITALS: BP 121/71; PULSE 82; RESP 18; TEMP 36.8; O2SAT 96
[2020-11-15 20:12] LABS: Hypochromasia 2+; Lymphocytes % 5 % (10-50); Monocytes % 5 % (2-9); Neutrophils % 89 % (42-76); Platelet Estimate Normal; Total Cells Counted 100
== END 2020-11-15 19:25 | disposition home or self-care (01) ==
PROVIDERS: Emergency Provider Emergency Medicine
DX: N17.9 Acute kidney failure, unspecified (principal); M79.89 Other specified soft tissue disorders; E87.5 Hyperkalemia; J44.9 Chronic obstructive pulmonary disease, unspecified; F17.210 Nicotine dependence, cigarettes, uncomplicated; Z86.16 Personal history of COVID-19; R06.09 Other forms of dyspnea
CPT/HCPCS: 80053; 83880; 85007; 85025; 93970; 99283

== ENCOUNTER 2020-11-25 08:57 | Emergency (ER) | payer MEDICARE, MEDICAID, SELFPAY ==
[2020-11-25] VITALS (34 sets, daily range): BP systolic 71–124; BP diastolic 50–73; PULSE 67–105; RESP 12–21; TEMP 36.4; O2SAT 94–100; BMI 21.7
--- NOTE | 2020-11-25 | XR_ITS ---
PROCEDURE: XR SHOULDER RT 1V CLINICAL INDICATION: Post reduction of anterior dislocation COMPARISON: CR XR SHOULDER RT MIN 2V from 11/25/2020 FINDINGS: There has been interval reduction of the anterior dislocation. The focal depression of the posterior lateral humeral head is again seen suggesting Hill-Sachs lesion. The soft tissues appear normal. IMPRESSION: Satisfactory reduction anterior dislocation right shoulder Dictated by: Dr. Mickey Abdullahi MD 11/25/2020 13:46 Dr. Mickey Abdullahi MD in [place] 11/25/2020 13:46
--- NOTE | 2020-11-25 08:54 | XR_ITS ---
PROCEDURE: XR SHOULDER RT MIN 2V CLINICAL INDICATION: fall COMPARISON: CR XR CHEST PORTABLE from 10/31/2020 FINDINGS: There is subluxation of the humeral head over the inferior lip the glenoid. There is flattening of the posterior lateral humeral head suggesting possible Hill-Sachs type lesion. The clavicle is intact and the AC joint appears normal. IMPRESSION: Anterior partial dislocation right shoulder with possible Hill-Sachs lesion Dictated by: Dr. Mickey Abdullahi MD 11/25/2020 09:47 Dr. Mickey Abdullahi MD in [place] 11/25/2020 09:47
--- NOTE | 2020-11-25 08:54 | CT_ITS ---
PROCEDURE: CT CERVICAL SPINE WO CON CLINICAL INDICATION: fall COMPARISON: CT CSWO CT CERVICAL SPINE W/O CONT from 04/04/2014 TECHNIQUE: Axial images obtained with sagittal and coronal reformats. All CT scans at the facility use one or more dose reduction, viz: automated exposure control, ma/kV adjustment per patient size (including targeted exams where dose is matched to indication, i.e. head), or iterative reconstruction technique. Axial spiral CT scanning performed of the cervical spine beginning at the base of the skull and continuing to the upper T-spine. 3-D multiplanar reconstruction with 3-D manipulation of volumetric data set in image rendering was completed by the radiologist and/or technologist with the supervision of the radiologist on independent workstation. FINDINGS: There is a nondisplaced transverse fracture through the base of the odontoid. This is a type 2 fracture. The body of C2 vertebral body appears intact. The prevertebral soft tissues are normal. There is multilevel disc space narrowing most prominent at C3-4, C4-5 and C5-6 levels. There is mild posterior osteophytic spurring at the C5-6 level. There is bilateral neural foraminal narrowing at the C 4 5 level and C5-6 level. IMPRESSION: Type 2 acute transverse nondisplaced fracture base of the odontoid along with multilevel degenerate changes of the mid and lower cervical spine Dictated by: Dr. Mickey Abdullahi MD 11/25/2020 09:43 Dr. Mickey Abdullahi MD in [place] 11/25/2020 09:43
--- NOTE | 2020-11-25 08:54 | XR_ITS ---
PROCEDURE: XR HIP LT 2-3V W/PELVIS CLINICAL INDICATION: fall COMPARISON: CR XR HIP RT 2-3V W/PELVIS from 09/29/2020 FINDINGS: No fracture or dislocation is evident. There is mild asymmetrical joint space narrowing.. There is a mildly sclerotic or blastic appearing superior pubic ramus left-side and this could possibly represent focal Paget's disease. The SI joints and symphysis pubis appear normal. There is prominent disc space narrowing at the L4-5 level. IMPRESSION: Mild osteoarthritic change left hip, blastic appearing superior pubic ramus left-side and focal Paget's disease is a possibility. Blastic metastatic disease is an outside possibility Dictated by: Dr. Mickey Abdullahi MD 11/25/2020 09:51 Dr. Mickey Abdullahi MD in [place] 11/25/2020 09:51
--- NOTE | 2020-11-25 08:54 | XR_ITS ---
PROCEDURE: XR WRIST RT MIN 3V CLINICAL INDICATION: fall COMPARISON: No exams were available for comparison FINDINGS: The carpal bones appear intact. There is mild narrowing of the 1st carpometacarpal joint. The distal radius and ulna appear intact. The soft tissues are normal. IMPRESSION: Minor osteoarthritic change base of thumb, no definite acute fracture seen Dictated by: Dr. Mickey Abdullahi MD 11/25/2020 09:53 Dr. Mickey Abdullahi MD in [place] 11/25/2020 09:53
--- NOTE | 2020-11-25 08:54 | CT_ITS ---
PROCEDURE: CT HEAD/BRAIN WO CON CLINICAL INDICATION: fall Patient fell at half-way hitting forehead COMPARISON: No exams were available for comparison TECHNIQUE: Axial images obtained. All CT scans at the facility use one or more dose reduction, viz: automated exposure control, ma/kV adjustment per patient size (including targeted exams where dose is matched to indication, i.e. head), or iterative reconstruction technique. FINDINGS: No midline shift, mass effect, intracranial hemorrhage, hydrocephalus, or extra-axial fluid collection is evident. The basilar cisterns and sylvian are somewhat prominent. The cortical sulci are prominent especially over the frontal lobes. There are mild periventricular hypodensities consistent with chronic ischemic white matter changes. The calvarium has an unremarkable appearance. No mastoid effusion. No sinus air-fluid level. There is no significant soft tissue swelling of the forehead. IMPRESSION: No acute intracranial finding, findings of mild age-appropriate cortical atrophy and mild chronic ischemic white matter changes Dictated by: Dr. Mickey Abdullahi MD 11/25/2020 09:26 Dr. Mickey Abdullahi MD in [place] 11/25/2020 09:26
--- NOTE | 2020-11-25 09:12 | HMH.EDFALL ---
ED Disposition Clinical Impression: Accidental fall Qualifiers: Encounter type: initial encounter Qualified Code(s): W19.XXXA - Unspecified fall, initial encounter Dislocation of right shoulder joint Qualifiers: Encounter type: initial encounter Qualified Code(s): S43.004A - Unspecified dislocation of right shoulder joint, initial encounter Odontoid fracture with type II morphology Qualifiers: Encounter type: initial encounter Fracture type: closed Fracture alignment: nondisplaced Qualified Code(s): S12.112A - Nondisplaced Type II dens fracture, initial encounter for closed fracture Disposition: Xfer Inpatient Rehab Fac Condition on Discharge: Good Instructions: DI for Cervical Neck Fracture Referrals: Chandu Senior MD [Primary Care Provider] - Jeremy Davison [Referring] - 7-14 days (Call tomorrow for appointment) - Critical Care Critical Care Time: No Attestation: On 11/25/20, the high probability of a clinically significant, sudden or life threatening deterioration of the following system(s) required my full and direct attention, intervention and personal management. The time I documented below is in addition to time spent performing reported procedures but includes the following listed in this critical care notation. Medical Decision Making - Medical Records Medical records reviewed: Yes: I reviewed the patient's medical records. - Teddy Inquiry Pt receiving controlled substance: No Vital Signs: 11/25/20 08:49 11/25/20 09:41 11/25/20 10:00 Temperature 97.6 F Temperature Source Oral Pulse Rate 83 87 Pulse Rate [Right] 89 Respiratory Rate 18 14 12 Blood Pressure 97/66 L 114/67 Blood Pressure [Right Arm] 105/62 L Blood Pressure Mean 76 86 Blood Pressure Mean [Right Arm] 76 Blood Pressure Source [Right Arm] Automatic Cuff Blood Pressure Position [Right Arm] Sitting 02 Sat by Pulse Oximetry 97 95 96 Oxygen Delivery Method Room Air Room Air Room Air Oxygen Flow Rate (LPM) 11/25/20 10:30 11/25/20 11:00 11/25/20 11:05 Temperature Temperature Source Pulse Rate 95 H 90 89 Pulse Rate [Right] 105 H Respiratory Rate 21 13 12 Blood Pressure 109/61 L 107/71 L 102/62 L Blood Pressure [Right Arm] 102/62 L Blood Pressure Mean 77 81 73 Blood Pressure Mean [Right Arm] 75 Blood Pressure Source [Right Arm] Blood Pressure Position [Right Arm] 02 Sat by Pulse Oximetry 95 97 96 Oxygen Delivery Method Room Air Oxygen Flow Rate (LPM) 11/25/20 11:10 11/25/20 11:15 11/25/20 11:20 Temperature Temperature Source Pulse Rate 75 73 67 Pulse Rate [Right] 77 Respiratory Rate 16 18 18 Blood Pressure 99/68 L 99/61 L 107/70 L Blood Pressure [Right Arm] 107/70 L Blood Pressure Mean 73 81 85 Blood Pressure Mean [Right Arm] 82 Blood Pressure Source [Right Arm] Blood Pressure Position [Right Arm] 02 Sat by Pulse Oximetry 100 100 100 Oxygen Delivery Method Nasal Cannula Oxygen Flow Rate (LPM) 3 11/25/20 11:25 11/25/20 11:30 11/25/20 11:35 Temperature Temperature Source Pulse Rate 71 Pulse Rate [Right] 97 H 92 H 99 H Respiratory Rate 17 18 18 Blood Pressure 102/69 L Blood Pressure [Right Arm] 93/63 L 107/68 L 100/61 L Blood Pressure Mean 76 Blood Pressure Mean [Right Arm] 73 81 74 Blood Pressure Source [Right Arm] Blood Pressure Position [Right Arm] 02 Sat by Pulse Oximetry 98 100 100 Oxygen Delivery Method Nasal Cannula Nasal Cannula Nasal Cannula Oxygen Flow Rate (LPM) 3 3 3 11/25/20 11:36 11/25/20 11:40 11/25/20 11:45 Temperature Temperature Source Pulse Rate 84 88 78 Pulse Rate [Right] 86 Respiratory Rate 14 19 15 Blood Pressure 107/68 L 94/66 L 93/68 L Blood Pressure [Right Arm] 94/66 L Blood Pressure Mean 81 75 75 Blood Pressure Mean [Right Arm] 75 Blood Pressure Source [Right Arm] Blood Pressure Position [Right Arm] 02 Sat by Pulse Oximetry 100 98 100 Oxygen Delivery Method Nasal Cannula
--- NOTE | 2020-11-25 09:15 | XR_ITS ---
PROCEDURE: XR HIP RT 2-3V W/PELVIS CLINICAL INDICATION: FALL COMPARISON: CR XR HIP LT 2-3V W/PELVIS from 11/25/2020 FINDINGS: No fracture or dislocation is evident. There is mild asymmetrical joint space narrowing.. No lytic or blastic change. Unremarkable soft tissues. IMPRESSION: Mild osteoarthritic change, no acute fracture seen Dictated by: Dr. Mickey Abdullahi MD 11/25/2020 09:45 Dr. Mickey Abdullahi MD in [place] 11/25/2020 09:45
[2020-11-25 09:21] LABS: Basophils % 0.3 % (0.1-2.0); Eosinophils # 0.2 K/mm3 (0.0-0.4); Eosinophils % 1.8 % (0.1-12.0); Hematocrit 35.2 % (42.0-52.0); Hemoglobin 10.8 g/dL (14.1-18.0); Lymphocytes # 1.2 K/mm3 (0.7-4.5); Lymphocytes % 12.9 % (10-50); Mean Corpuscular HGB Conc 30.8 g/dL (31.8-35.4); Mean Corpuscular Hemoglobin 30.2 pg (27.0-31.2); Mean Platelet Volume 9.1 fl (7.4-10.4); Monocytes # 0.5 K/mm3 (0.1-1.0); Monocytes % 5.6 % (1.7-9.3); Neutrophils # 7.7 K/mm3 (1.8-7.8); Neutrophils % 79.5 % (37.0-80.0); Platelet Count 444 K/mm3 (142-424); Red Blood Count 3.59 M/mm3 (4.60-6.20); Red Cell Distribution Width 16.3 % (11.5-17.5); White Blood Count 9.6 K/mm3 (4.8-10.8)
[2020-11-25 09:27] LABS: Chloride 96 mmol/L (98-107); Sodium 138 mmol/L (136-145)
--- NOTE | 2020-11-25 09:30 | PC.NURSE ---
patient is back from radiology.
[2020-11-25 09:31] LABS: Anion Gap 12.6 mEq/L (5-15); Blood Urea Nitrogen 72 mg/dl (9-20); Carbon Dioxide 32 mmol/L (22.0-30.0); Creatinine Clearance Estimated 32 mL/min (50-200); Estimated Glomerular Filt Rate 34 ml/min (>60); GFR (African American) 41 ML/MIN (>60); Glucose 124 mg/dl (74-100)
[2020-11-25 09:34] LABS: Potassium 2.6 mmoL/L (3.5-5.1)
--- NOTE | 2020-11-25 09:34 | PC.NURSE ---
Critical values given to RN.
--- NOTE | 2020-11-25 09:37 | PC.NURSE ---
Radiology Doctor on the phone with
--- NOTE | 2020-11-25 10:01 | ECG_ITS ---
APPROVED REPORT Exam: Resting ECG HR:73 bpm ECG Measurements Heart Rate 73 AXES QRSd 112 QRS -78 QT 378 T 89 QTc 416 Conclusion Atrial fibrillation Left axis deviation Abnormal ECG Electronically signed by : Eyad Varghese MD 11/26/2020 09:46:59
--- NOTE | 2020-11-25 10:11 | PC.NURSE ---
called emergency contact, granddaughter, per MD request to discuss patient care
--- NOTE | 2020-11-25 10:17 | PC.NURSE ---
Calling [facility] [place] neuro.
--- NOTE | 2020-11-25 10:20 | PC.NURSE ---
on the phone with
--- NOTE | 2020-11-25 10:22 | PC.NURSE ---
IV potassium held per MD request for reduction
--- NOTE | 2020-11-25 10:22 | PC.NURSE ---
PO potassium held at this time due to cervical fx. Pt is NPO status at this time awaiting further directions from [facility] md consult
--- NOTE | 2020-11-25 10:42 | PC.NURSE ---
care management contacting [facility] to see if they have an aspen collar for pt.
--- NOTE | 2020-11-25 11:10 | PC.NURSE ---
XR called for post reduction image. MD at bedside. Pt awake talking at this time
--- NOTE | 2020-11-25 11:15 | PC.NURSE ---
XR at bedside. Reduction unsuccessful.
--- NOTE | 2020-11-25 11:20 | PC.NURSE ---
at the bedside. MD requesting additional sedation to reattempt shoulder reduction
--- NOTE | 2020-11-25 11:50 | PC.NURSE ---
Pt returned to baseline mental status. Awake and talking. Reduction unsuccessful. Page out to dr asher at this time.
--- NOTE | 2020-11-25 12:09 | PC.NURSE ---
Dr. Sargent returned page at this time, he spoke with MARLO BEAN
--- NOTE | 2020-11-25 12:10 | PC.NURSE ---
Pt awake and talking at this time requesting pain medication
--- NOTE | 2020-11-25 12:12 | PC.NURSE ---
Dr Sargent spoke with ED MD and is coming for shoulder reduction
--- NOTE | 2020-11-25 12:34 | PC.NURSE ---
pt tolerated sips of water. Awaiting dr asher at this time
--- NOTE | 2020-11-25 12:49 | PC.NURSE ---
Dr. Sargent (ortho) at BS with MARLO BEAN
--- NOTE | 2020-11-25 12:50 | PC.NURSE ---
Dr asher at bedside
--- NOTE | 2020-11-25 13:04 | PC.NURSE ---
Fluids increased duw to bp 74/55. at the bedside
--- NOTE | 2020-11-25 13:05 | PC.NURSE ---
XR at the bedside for post reduction image
--- NOTE | 2020-11-25 13:12 | PC.NURSE ---
Spoke with Cardiology. Ronald OHARA will give us a call back.
--- NOTE | 2020-11-25 13:13 | PC.NURSE ---
post reduction xr reveals successful reduction of shoulder. pt awake and talking to staff
--- NOTE | 2020-11-25 13:49 | PC.NURSE ---
pt is eating lunch at this time
--- NOTE | 2020-11-25 15:26 | HMH.ORTHOCON ---
*Admission Date: 11/25/20 *Reason for consult:: Right shoulder dislocation *History of present illness: 80-year-old male, halfway resident, had an unwitnessed fall, complained of neck and right shoulder pain. Radiographs were suggestive of anterior shoulder dislocation. There was a reduction attempt performed the emergency department that was unsuccessful. I was consulted regarding further management. [facility] History Medical History: Reports:: Chronic Obstructive Pulmonary Disease (COPD) *Have you ever received a pneumonia vaccine?: No *Have you received a flu vaccine this season?: No Other Medical History: Reports: Arthritis Other Surgeries: Yes: No Previous Surgery, Colonoscopy Amputation: No Fractures: No - *Social History Smoking Status: Current every day smoker # Packs/Day (cigarettes): 1 Alcohol Intake: never Last Used Substance: unknown *Occupational Status:: retired, disabled Housing: halfway *Travel in the last 8 weeks: Inside the [place] Family Hx:: Unable to obtain Review of Systems - Review of Systems Review of systems:: other - Constitutional Denies anorexia - Eyes Denies blind spots, Denies blurry vision - ENT Denies abnormal hearing, Denies bleeding gums - *Cardiovascular Denies chest pain, Denies shortness of breath - *Respiratory Denies wheezing - *Gastrointestinal Denies abdominal pain - *Musculoskeletal Reports joint pain - Integumentary/Breasts Denies rash - *Neurologic Reports confusion, Reports headache(s), Reports memory loss - Endocrine Denies cold intolerance, Denies excessive sweating - Hematologic/Lymphatic Denies enlarged lymph nodes - Allergic/Immunologic Denies GI upset with certain foods Meds Home Medications Medication Instructions Recorded Confirmed Type Donepezil HCl [Aricept 10mg 10 mg PO HS 11/20/18 11/23/20 History tablet] Memantine HCl 10 mg PO BID 11/20/18 11/23/20 History Pentoxifylline 400 mg PO TID 11/20/18 11/23/20 History Albuterol Sulfate [Ventolin HFA 2 puffs IH Q6HP PRN #1 inh 11/23/18 11/23/20 Rx Inhaler] Ibuprofen [Ibuprofen 600mg 600 mg PO Q8HP PRN 30 Days #90 tab 01/22/19 11/23/20 Rx Tablet] hydroCHLOROthiazide [HCTZ 25mg 25 mg PO DAILY 10/18/20 11/23/20 History tab] Loperamide HCl [Loperamide] 2 mg PO Q4HP PRN 11/01/20 11/23/20 History oxycodone-acetaminophen 10 mg-325 1 tab PO QID #120 tab 11/04/20 11/23/20 Rx mg tablet Amitriptyline HCl [Elavil 25mg 25 mg PO HS 11/23/20 11/23/20 History tablet] Buspirone HCl [Buspar 5mg tablet] 5 mg PO BID 11/23/20 11/23/20 History Ceftriaxone 1 gm [Rocephin 1gm ADV] 1 gm IV DAILY 11/23/20 11/23/20 History Guaifenesin/Dextromethorphan 10 ml PO QID 11/23/20 11/23/20 History [Robafen Dm Cough 100-10 mg/5Ml] Allergies Allergy/AdvReac Type Severity Reaction Status Date / Time No Known Allergies Allergy Verified 11/23/18 12:21 Exam Vital signs and Labs for Last 24 Hours: Temp Pulse Resp BP Pulse Ox 97.6 F 102 H 18 108/73 L 98 11/25/20 08:49 11/25/20 13:45 11/25/20 13:45 11/25/20 13:45 11/25/20 13:45 Laboratory Results - last 24 hr 11/25/20 08:55: WBC 9.6, RBC 3.59 L, Hgb 10.8 L, Hct 35.2 L, MCV 98.0 H, MCH 30.2, MCHC 30.8 L, RDW 16.3, Plt Count 444 H, MPV 9.1, Neut % (Auto) 79.5, Lymph % (Auto) 12.9, [place] % (Auto) 5.6, Eos % (Auto) 1.8, Baso % (Auto) 0.3, Neut # (Auto) 7.7, Lymph # (Auto) 1.2, [place] # (Auto) 0.5, Eos # (Auto) 0.2, Baso # (Auto) 0.0 11/25/20 08:55: Sodium 138, Potassium 2.6 L*, Chloride 96 L, Carbon Dioxide 32 H, Anion Gap 12.6, BUN 72 H, Creatinine 1.90 H, Estimated Creat Clear 32, Estimated GFR 34 L, Est GFR ( Amer) 41 L, Glucose 124 H, Calcium 9.0 I & O for Last 24 hours: Intake & Output 11/22/20 11/23/20 11/24/20 11/25/20 23:59 23:59 23:59 23:59 Weight 160 lb - Constitutional no acute distress - *Routine HEENT Exam Head: Present: normocephalic Eye: Present: EOMI,
== END 2020-11-25 15:30 ==
PROVIDERS: Emergency Provider Emergency Medicine; PCP Emergency Medicine
DX: S12.112A Nondisplaced Type II dens fracture, initial encounter for closed fracture (principal); S43.004A Unspecified dislocation of right shoulder joint, initial encounter; W06.XXXA Fall from bed, initial encounter; Y92.122 Bedroom in nursing home as the place of occurrence of the external cause; J44.9 Chronic obstructive pulmonary disease, unspecified; E78.5 Hyperlipidemia, unspecified; F17.210 Nicotine dependence, cigarettes, uncomplicated; Z79.899 Other long term (current) drug therapy; F03.90 Unspecified dementia, unspecified severity, without behavioral disturbance, psychotic disturbance, mood disturbance, and anxiety
CPT/HCPCS: 70450; 72125; 73020; 73030; 73110; 73502; 80048; 85025; 93005; 96365; 96375; 96376; 99152; 99153; 99285

== ENCOUNTER 2020-11-30 00:58 | Inpatient (IN) | payer MEDICARE, MEDICAID, SELFPAY ==
[2020-11-30] VITALS (45 sets, daily range): BP systolic 62–122; BP diastolic 36–99; PULSE 65–130; RESP 14–26; TEMP 36.5–36.8; O2SAT 88–100; BMI 18.4
--- NOTE | 2020-11-30 01:08 | ECG_ITS ---
APPROVED REPORT Exam: Resting ECG HR:135 bpm ECG Measurements Heart Rate 135 AXES QRSd 96 QRS -80 QT 316 T 96 QTc 474 Conclusion Atrial fibrillation with rapid ventricular response with premature ventricular or aberrantly conducted complexes Incomplete right bundle branch block Left anterior fascicular block Possible Lateral infarct, age undetermined Abnormal ECG Electronically signed by : Eyad Varghese MD 11/30/2020 21:17:10
--- NOTE | 2020-11-30 01:43 | HMH.EDUROGM ---
ED Disposition Clinical Impression: Severe sepsis with acute organ dysfunction, Septic shock, Tobacco use, Hypokalemia, BACILIO (acute kidney injury), Mild dementia, Mild concentric left ventricular hypertrophy (LVH) Odontoid fracture with type II morphology Qualifiers: Encounter type: subsequent encounter Fracture type: closed Fracture alignment: nondisplaced Fracture healing: with routine healing Qualified Code(s): S12.112D - Nondisplaced Type II dens fracture, subsequent encounter for fracture with routine healing Hematuria Qualifiers: Hematuria type: gross Qualified Code(s): R31.0 - Gross hematuria COPD (chronic obstructive pulmonary disease) Qualifiers: COPD type: unspecified COPD Qualified Code(s): J44.9 - Chronic obstructive pulmonary disease, unspecified A-fib Qualifiers: Atrial fibrillation type: unspecified Qualified Code(s): I48.91 - Unspecified atrial fibrillation Aortic stenosis Qualifiers: Cardiac valve disease etiology: nonrheumatic Qualified Code(s): I35.0 - Nonrheumatic aortic (valve) stenosis CAD (coronary artery disease) Qualifiers: Coronary Disease-Associated Artery/Lesion type: [place] artery [place] vs. transplanted heart: [place] heart Associated angina: unspecified whether angina present Qualified Code(s): I25.10 - Atherosclerotic heart disease of [place] coronary artery without angina pectoris Anemia Qualifiers: Anemia type: unspecified type Qualified Code(s): D64.9 - Anemia, unspecified UTI (urinary tract infection) Qualifiers: Urinary tract infection type: site unspecified Hematuria presence: with hematuria Qualified Code(s): N39.0 - Urinary tract infection, site not specified; R31.9 - Hematuria, unspecified Disposition: Admitted as Observation Condition on Discharge: Good Instructions: DI for Urinary Tract Infection (UTI), DI for Urinary Tract Infection in Children Referrals: Chandu Senior MD [Primary Care Provider] - - Critical Care Critical Care Time: No Attestation: On 11/30/20, the high probability of a clinically significant, sudden or life threatening deterioration of the following system(s) required my full and direct attention, intervention and personal management. The time I documented below is in addition to time spent performing reported procedures but includes the following listed in this critical care notation. Medical Decision Making - Medical Records Medical records reviewed: Yes: I reviewed the patient's medical records. - Teddy Inquiry Pt receiving controlled substance: No Vital Signs: 11/30/20 00:56 11/30/20 01:15 11/30/20 01:30 Temperature 97.7 F Temperature Source Rectal Pulse Rate 100 H Pulse Rate [Left] 130 H Respiratory Rate 14 24 Blood Pressure 68/48 L 82/47 L Blood Pressure [Right Arm] 82/50 L Blood Pressure Mean Blood Pressure Mean [Right Arm] 60 Blood Pressure Source Manual Cuff/ Auscultation Blood Pressure Position Supine 02 Sat by Pulse Oximetry 90 L 91 L Oxygen Delivery Method Nasal Cannula Nasal Cannula Oxygen Flow Rate (LPM) 3 3 11/30/20 01:48 11/30/20 01:56 11/30/20 02:00 Temperature Temperature Source Pulse Rate 100 H 124 H Pulse Rate [Left] Respiratory Rate 22 26 H Blood Pressure 89/40 L 95/56 L 79/56 L Blood Pressure [Right Arm] Blood Pressure Mean 64 Blood Pressure Mean [Right Arm] Blood Pressure Source Blood Pressure Position 02 Sat by Pulse Oximetry 91 L 88 L Oxygen Delivery Method Nasal Cannula Nasal Cannula Oxygen Flow Rate (LPM) 3 3 11/30/20 02:30 11/30/20 02:46 11/30/20 03:00 Temperature Temperature Source Pulse Rate 111 H 116 H 110 H Pulse Rate [Left] Respiratory Rate 22 21 21 Blood Pressure 114/58 L 112/68 90/57 L Blood Pressure [Right Arm] Blood Pressure Mean Blood Pressure Mean [Right Arm] Blood Pressure Source Blood Pressure Position 02 Sat by Pulse Oximetry 96 97 99 Oxygen Delivery Method Nasal Cannula Nasal Cannula Na
[2020-11-30 01:47] LABS: Microscopic, Urine URINE MICROSCOPIC (MICROSCOPIC)
--- NOTE | 2020-11-30 01:48 | XR_ITS ---
PROCEDURE INFORMATION: Exam: XR Chest Exam date and time: 11/30/2020 1:48 AM Age: 80 years old Clinical indication: Cough; Patient HX: Recently had covid TECHNIQUE: Imaging protocol: XR of the chest. Views: 1 view. COMPARISON: CR XR CHEST PORTABLE 10/31/2020 11:56 AM FINDINGS: Lungs: Bibasilar opacities. Probable underlying emphysema. Pleural spaces: Unremarkable. No pleural effusion. No pneumothorax. Heart/Mediastinum: Enlarged pulmonary arteries likely represent chronic pulmonary arterial hypertension. Vasculature: Vascular calcifications. Bones/joints: Unremarkable. IMPRESSION: Bibasilar opacities. In corroboration with CT abdomen/pelvis, the appearance is most suggestive of aspiration and atypical infection. Please exclude COVID-19 clinically.
[2020-11-30 01:54] LABS: Basophils # 0.2 K/mm3 (0-0.2); Basophils % 0.7 % (0.1-2.0); Eosinophils % 0.2 % (0.1-12.0); Hematocrit 34.6 % (42.0-52.0); Hemoglobin 10.4 g/dL (14.1-18.0); Lymphocytes # 0.9 K/mm3 (0.7-4.5); Lymphocytes % 4.4 % (10-50); Mean Corpuscular HGB Conc 29.9 g/dL (31.8-35.4); Mean Corpuscular Hemoglobin 29.8 pg (27.0-31.2); Mean Corpuscular Volume 99.5 fl (80-94); Mean Platelet Volume 9.2 fl (7.4-10.4); Monocytes # 0.7 K/mm3 (0.1-1.0); Monocytes % 3.5 % (1.7-9.3); Neutrophils # 18.9 K/mm3 (1.8-7.8); Neutrophils % 91.3 % (37.0-80.0); Platelet Count 395 K/mm3 (142-424); Red Blood Count 3.48 M/mm3 (4.60-6.20); Red Cell Distribution Width 15.9 % (11.5-17.5); White Blood Count 20.7 K/mm3 (4.8-10.8)
[2020-11-30 01:59] LABS: Alanine Aminotransferase 33 U/L (12-78); Albumin Level 3.1 g/dl (3.5-5.0); Albumin/Globulin Ratio 1.1 (1.1-1.8); Alkaline Phosphatase 108 U/L (38-126); Anion Gap 22.1 mEq/L (5-15); Aspartate Amino Transferase 39 U/L (17-59); Bilirubin,Total 0.6 mg/dl (0.2-1.3); Calcium 8.2 mg/dl (8.4-10.2); Carbon Dioxide 23 mmol/L (22.0-30.0); Chloride 95 mmol/L (98-107); Creatinine Clearance Estimated 17 mL/min (50-200); Estimated Glomerular Filt Rate 19 ml/min (>60); GFR (African American) 23 ML/MIN (>60); Globulin 2.9 g/dL (1.3-3.2); Glucose 220 mg/dl (74-100); Potassium 3.1 mmoL/L (3.5-5.1); Sodium 137 mmol/L (136-145)
[2020-11-30 02:04] LABS: C-Reactive Protein 182.7 mg/L (0-4)
[2020-11-30 02:05] LABS: Blood Urea Nitrogen 82 mg/dl (9-20); MANUAL DIFFERENTIAL MANUAL DIFFERENTIAL (MANUAL DIFF)
--- NOTE | 2020-11-30 02:07 | CT_ITS ---
PROCEDURE INFORMATION: Exam: CT Abdomen And Pelvis Without Contrast Exam date and time: 11/30/2020 2:07 AM Age: 80 years old Clinical indication: Other: Hematuria; Abdominal pain; Generalized TECHNIQUE: Imaging protocol: Computed tomography of the abdomen and pelvis without contrast. Radiation optimization: All CT scans at this facility use at least one of these dose optimization techniques: automated exposure control; mA and/or kV adjustment per patient size (includes targeted exams where dose is matched to clinical indication); or iterative reconstruction. COMPARISON: CR XR HIP RT 2-3V W/PELVIS 11/25/2020 9:17 AM FINDINGS: Tubes, catheters and devices: Urinary bladder is catheterized. Lungs: Ground-glass opacities in the lower lungs could correlate with atypical pneumonia or aspiration pneumonitis. Pleural spaces: Trace right pleural effusion. Heart: Aortic valve calcifications. Coronary artery disease. Liver: Normal. No mass. Gallbladder and bile ducts: Distended gallbladder. No pericholecystic edema or free fluid. Pancreas: Moderate pancreatic atrophy. Spleen: Normal. No splenomegaly. Adrenal glands: Nonspecific left adrenal thickening. Kidneys and ureters: Normal. No hydronephrosis. Stomach and bowel: Unremarkable. No obstruction. No mucosal thickening. Appendix: No evidence of appendicitis. Intraperitoneal space: Unremarkable. Vasculature: Advanced atherosclerotic disease of the arteries. Lymph nodes: Unremarkable. No enlarged lymph nodes. Urinary bladder: Unremarkable as visualized. Reproductive: Unremarkable as visualized. Bones/joints: The lumbar spine demonstrates moderate degenerative changes at multiple levels. Left pubic body sclerotic appearance of indeterminate significance. Soft tissues: Tiny fat containing umbilical hernia. Mild anasarca. IMPRESSION: 1. No source of hematuria identified on this limited noncontrast CT examination. 2. Ground-glass opacities in the lower lungs could correlate with atypical pneumonia or aspiration pneumonitis.
[2020-11-30 02:18] LABS: Procalcitonin 1.66 ng/mL (0.0-2.0)
[2020-11-30 02:25] LABS: Appearance,Urine TURBID (Clear); Bilirubin,Urine Negative (Negative); Blood, Urine 3+ (Negative); Color,Urine RED (Yellow); Glucose,Urine (UA) Negative (Negative); Ketones,Urine TRACE (Negative); Leukocyte Esterase,Urine 1+ (Negative); Nitrate,Urine POSITIVE (Negative); PH,Urine 8.5 (5.0-8.5); Protein,Urine 3+ (Negative)
[2020-11-30 02:26] LABS: Bacteria,Urine 3+ /lpf; RBC,Urine TNTC #/hpf (0-3)
[2020-11-30 02:35] LABS: Erythrocyte Sedimentation Rate 79 mm/hr (0-20)
[2020-11-30 02:55] LABS: Lymphocytes % 9 % (10-50); Macrocytosis 1+; Monocytes % 1 % (2-9); Neutrophils % 90 % (42-76); Platelet Estimate Normal; Stomatocytes 1+; Total Cells Counted 100
[2020-11-30 04:07] LABS: Coronavirus 19, PCR Not Detected (NotDetected); Influenza A, PCR Not Detected (NotDetected); Influenza B, PCR Not Detected (NotDetected)
[2020-11-30 05:13] LABS: Reflex Lactic Add Lactic Reflex
--- NOTE | 2020-11-30 05:13 | PC.NURSE ---
0446- Manual BP of 60/palp. MD notified and orders for Levophed obtained. Levo started at 8mcg/min at 0502
[2020-11-30 05:29] LABS: Lactic Acid Follow Up (RFLX 1) 3.3 mmol/L (0.7-2.1)
--- NOTE | 2020-11-30 05:41 | PC.NURSE ---
0529-Levo gtt increased to 10mcg/min d/t BP of 79/50
--- NOTE | 2020-11-30 07:09 | PC.NURSE ---
Levo decreased to 8mcg/min SBP 107
[2020-11-30 07:14] LABS: Reflex Lactic (2 hrs) Add Lactic Reflex
--- NOTE | 2020-11-30 07:23 | PC.NURSE ---
levo increased back to 10mcg/min SBP 89
--- NOTE | 2020-11-30 07:33 | PC.NURSE ---
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
[2020-11-30 07:59] LABS: Lactic Acid Follow up (RFLX 2) 2.7 mmol/L (0.7-2.1)
--- NOTE | 2020-11-30 08:00 | PC.NURSE ---
Chris Flaherty at bedside
--- NOTE | 2020-11-30 08:23 | HMH.HP ---
*Admission Date: 11/30/20 *Chief complaint: hematuria *History of present illness: 80-year-old white gentleman who presented to the emergency department from the half-way for hypotension and hematuria. The patient was supposed to have a TURP on Saturday but did not show up for the procedure. The patient gives very little history and cannot tell me why he is at the hospital. He does report that he is having pain in his lower back and neck from a fall recently but he does not know when. The patient states that the back pain and neck pain are severe. He does have a neck brace in place. He denies any chest pain or pressure. He denies any shortness of breath. The patient was recently admitted to the hospital for COVID-19 pneumonia in October 2020. He does have known atrial fibrillation that currently does not appear to be treated. He denies VT or coronary artery disease. He denies any fever, chills, nausea, vomiting, diarrhea, PND orthopnea. The patient does have bilateral lower extremity edema. This is mild in his right lower extremity but he does have significantly more edema in his left lower extremity.-per cardiology [facility] History I have reviewed the patient's past medical history: Yes Medical History: Reports:: Chronic Obstructive Pulmonary Disease (COPD) *Have you ever received a pneumonia vaccine?: No *Have you received a flu vaccine this season?: No Other Medical History: Reports: Arthritis Other Surgeries: Yes: No Previous Surgery, Colonoscopy Amputation: No Fractures: No - *Social History Smoking Status: Current every day smoker # Packs/Day (cigarettes): 1 Alcohol Intake: never *Occupational Status:: retired, disabled Housing: half-way *Travel in the last 8 weeks: None Family Hx:: Unable to obtain Review of Systems - Review of Systems Review of systems:: pertinent systems reviewed and negative unless documented below - Constitutional Reports fatigue, Denies body ache(s) - Eyes Denies blurry vision - ENT Denies abnormal hearing, Denies hearing loss - *Cardiovascular Denies chest pain - *Respiratory Denies pain on inspiration - *Gastrointestinal Denies belching - *Genitourinary Reports difficulty urinating, Reports other - *Musculoskeletal Denies joint pain - Integumentary/Breasts Denies hair loss - *Neurologic Denies localized weakness - Psychiatric Denies lack of enjoyment - Endocrine Denies excessive sweating - Hematologic/Lymphatic Denies easy bruising - Allergic/Immunologic Denies GI upset with certain foods Meds Home Medications Medication Instructions Recorded Confirmed Type Donepezil HCl [Aricept 10mg 10 mg PO HS 11/20/18 11/30/20 History tablet] Memantine HCl 10 mg PO BID 11/20/18 11/30/20 History Pentoxifylline 400 mg PO TID 11/20/18 11/30/20 History Albuterol Sulfate [Ventolin HFA 2 puffs IH Q6HP PRN #1 inh 11/23/18 11/30/20 Rx Inhaler] Ibuprofen [Ibuprofen 600mg 600 mg PO Q8HP PRN 30 Days #90 tab 01/22/19 11/30/20 Rx Tablet] hydroCHLOROthiazide [HCTZ 25mg 25 mg PO DAILY 10/18/20 11/30/20 History tab] Loperamide HCl [Loperamide] 2 mg PO Q4HP PRN 11/01/20 11/30/20 History oxycodone-acetaminophen 10 mg-325 1 tab PO QID #120 tab 11/04/20 11/30/20 Rx mg tablet Amitriptyline HCl [Elavil 25mg 25 mg PO HS 11/23/20 11/30/20 History tablet] Buspirone HCl [Buspar 5mg tablet] 5 mg PO BID 11/23/20 11/30/20 History Guaifenesin/Dextromethorphan 10 ml PO Q6HP PRN 11/23/20 11/30/20 History [Robafen Dm Cough 100-10 mg/5Ml] Ipratropium/Albuterol Sulfate 3 ml IH Q6HP PRN 11/30/20 11/30/20 History [Duoneb 3mL neb] Tamsulosin HCl 0.4 mg PO HS 11/30/20 11/30/20 History Allergies Allergy/AdvReac Type Severity Reaction Status Date / Time No Known Allergies Allergy Verified 11/23/18 12:21 Exam Vital signs and Labs for Last 24 Hours: Temp Pulse Resp BP Pulse Ox 97.7 F 106 H 20 107/53 L 99 10/1
--- NOTE | 2020-11-30 08:42 | PC.NURSE ---
Per [employer], khadijah rizvi is working on a bed assignment for pt.
--- NOTE | 2020-11-30 09:32 | HMH.PHAINT ---
MEDICATION RECONCILIATION COMPLETED USING [facility]
--- NOTE | 2020-11-30 10:37 | PC.NURSE ---
updated pt's daughter on plan of care
--- NOTE | 2020-11-30 10:41 | CA_ITS ---
APPROVED REPORT Bilateral Lower Extremity Venous Study for DVT. Sales Research Analyst: YOMAIRA BarksdaleT Indications Lower Extremity Edema: Bilateral History of Smoking PITTING EDEMA BLE Risk Factors Bed Rest Vein Imaging CFV (R): compressive, spontaneous, phasic, augmentation SFJ (R): FEM (R): compressive, spontaneous, phasic, augmentation POP (R): compressive, spontaneous, phasic, augmentation PTV (R): Compressible GSV (R): Compressible Peroneals (R):Compressible GAS (R): Compressible CFV (L): compressive, spontaneous, phasic, augmentation FEM (L): compressive, spontaneous, phasic, augmentation POP (L): compressive, spontaneous, phasic, augmentation PTV (L): Compressible GSV (L): Compressible Peroneals (L):Non-Compressible, Thrombus GAS (L): Compressible Findings Study suggests no evidence of DVT or SVT of the right lower extremity. Study suggests DVT of the left peroneal vein other veins of the left lower extremity are normal. There is a 1.7 X 1.2 cm cystic structure seen in the mid left calf,non-vascular. Conclusion Study suggests no evidence of DVT or SVT of the right lower extremity. Study suggests DVT of the left peroneal vein other veins of the left lower extremity are normal. There is a 1.7 X 1.2 cm cystic structure seen in the mid left calf,non-vascular. Critical Notification Physician Notified Date: 11/30/2020 Time: 11:20 Physician Name: Chantel VU Electronically signed by : Santosh Haas MD 11/30/2020 18:32:03
--- NOTE | 2020-11-30 10:52 | HMH.CNCARD ---
History of Present Illness Consult date: 11/30/20 Requesting physician: Chandu Senior Consult reason: atrial fibrillation Chief complaint: back and neck pain Additional Medical History:: Echo from 10/2020 shows: 1. Mild biatrial enlargement, normal left ventricular size, mild concentric left ventricular hypertrophy, visually estimated ejection fraction 55% with no regional wall motion abnormality, diastolic parameters are inconclusive. 2. Mildly enlarged right ventricle with normal contractility. 3. Thickened and calcified aortic valve with mild aortic stenosis, there is no aortic insufficiency. 4. Mild mitral and tricuspid regurgitation, calculated right ventricular systolic pressure is 44 mmHg. 5. Trivial pericardial effusion noted. Inferior vena cava is not well visualized. History of present illness: This is an 80-year-old white gentleman who presented to the emergency department from the retirement for hypotension and hematuria. The patient was supposed to have a TURP on Saturday but did not show up for the procedure. The patient gives very little history and cannot tell me why he is at the hospital. He does report that he is having pain in his lower back and neck from a fall recently but he does not know when. The patient states that the back pain and neck pain are severe. He does have a neck brace in place. He denies any chest pain or pressure. He denies any shortness of breath. The patient was recently admitted to the hospital for COVID-19 pneumonia in October 2020. He does have known atrial fibrillation that currently does not appear to be treated. He denies TX or coronary artery disease. He denies any fever, chills, nausea, vomiting, diarrhea, PND orthopnea. The patient does have bilateral lower extremity edema. This is mild in his right lower extremity but he does have significantly more edema in his left lower extremity. [facility] History I have reviewed the patient's past medical history: Yes Medical History: Reports:: Atrial Fibrillation, Chronic Obstructive Pulmonary Disease (COPD) Denies:: Atherosclerotic Heart Disease, Cerebrovascular Accident *Have you ever received a pneumonia vaccine?: No *Have you received a flu vaccine this season?: No Other Medical History: Reports: Arthritis Other Surgeries: Yes: No Previous Surgery, Colonoscopy Amputation: No Fractures: No - *Social History Smoking Status: Current every day smoker # Packs/Day (cigarettes): 1 Alcohol Intake: never *Occupational Status:: retired, disabled Housing: retirement *Travel in the last 8 weeks: None Family Hx:: Unable to obtain Meds Home Medications Medication Instructions Recorded Confirmed Type Donepezil HCl [Aricept 10mg 10 mg PO HS 11/20/18 11/30/20 History tablet] Memantine HCl 10 mg PO BID 11/20/18 11/30/20 History Pentoxifylline 400 mg PO TID 11/20/18 11/30/20 History Albuterol Sulfate [Ventolin HFA 2 puffs IH Q6HP PRN #1 inh 11/23/18 11/30/20 Rx Inhaler] Ibuprofen [Ibuprofen 600mg 600 mg PO Q8HP PRN 30 Days #90 tab 01/22/19 11/30/20 Rx Tablet] hydroCHLOROthiazide [HCTZ 25mg 25 mg PO DAILY 10/18/20 11/30/20 History tab] Loperamide HCl [Loperamide] 2 mg PO Q4HP PRN 11/01/20 11/30/20 History oxycodone-acetaminophen 10 mg-325 1 tab PO QID #120 tab 11/04/20 11/30/20 Rx mg tablet Amitriptyline HCl [Elavil 25mg 25 mg PO HS 11/23/20 11/30/20 History tablet] Buspirone HCl [Buspar 5mg tablet] 5 mg PO BID 11/23/20 11/30/20 History Guaifenesin/Dextromethorphan 10 ml PO Q6HP PRN 11/23/20 11/30/20 History [Robafen Dm Cough 100-10 mg/5Ml] Ipratropium/Albuterol Sulfate 3 ml IH Q6HP PRN 11/30/20 11/30/20 History [Duoneb 3mL neb] Tamsulosin HCl 0.4 mg PO HS 11/30/20 11/30/20 History Allergies Allergy/AdvReac Type Severity Reaction Status Date / Time No Known Allergies Allergy Verified 11/23/18 12:21 Exam Vital signs and Labs for Last 24 Hours: Temp Pulse Res
--- NOTE | 2020-11-30 10:55 | PC.NURSE ---
report called to sara valdes at this time
--- NOTE | 2020-11-30 11:10 | PC.NURSE ---
cv lab staff at will transport pt to assigned room once exam is complete
--- NOTE | 2020-11-30 11:16 | P.CONPHA_ITS ---
[facility] Pharmacy VTE Monitoring - Patient Demographics Admission date: 11/30/20 Report Date: 11/30/20 Time: 11:16 Allergies/Adverse Reactions: Patient Allergies No Known Allergies Allergy (Verified 11/23/18 12:21) Height: 1.85 m Weight: 63.503 kg Patient Problems: Current Active Problems Hypokalemia (Acute) Anemia (Acute) Tobacco use (Acute) BACILIO (acute kidney injury) (Acute) Odontoid fracture with type II morphology (Acute) Severe sepsis with acute organ dysfunction (Acute) Septic shock (Acute) Hematuria (Acute) A-fib (Acute) Mild concentric left ventricular hypertrophy (LVH) (Acute) Aortic stenosis (Acute) CAD (coronary artery disease) (Acute) UTI (urinary tract infection) (Acute) Mild dementia (Chronic) COPD (chronic obstructive pulmonary disease) (Chronic) - VTE Risk Labs: VTE Related Lab Results Hgb 10.4 g/dL (14.1-18.0) L 11/30/20 01:40 Hct 34.6 % (42.0-52.0) L 11/30/20 01:40 Plt Count 395 K/mm3 (142-424) 11/30/20 01:40 BUN 82 mg/dl (9-20) H 11/30/20 01:40 Creatinine 3.20 mg/dl (0.66-1.25) H 11/30/20 01:40 Estimated Creat Clear 17 mL/min (50-200) 11/30/20 01:40 Clinical Trial Participant: No - Prophylaxis VTE Prophylaxis Ordered?: Yes Types of VTE Prophylaxis: TEDS Knee High
--- NOTE | 2020-11-30 11:22 | INFXCTL.NOTE ---
Verbal orders per Dr Ybarra stop Levophed drip Dilitiazem 5 mg IV bolus one time start Dilitiazem drip at 5mg per IV states if pt gets hypotensive to start pt on a Neosynephrine drip give pt one time dose of Morphine 4mg per IV notified cristy in pharmacy of these verbal orders. also updated sara valdes of new orders on pt
[2020-11-30 11:42] LABS: Basophils # 0.1 K/mm3 (0-0.2); Basophils % 0.3 % (0.1-2.0); Eosinophils # 0.1 K/mm3 (0.0-0.4); Eosinophils % 0.2 % (0.1-12.0); Hemoglobin 10.3 g/dL (14.1-18.0); Lymphocytes # 1.1 K/mm3 (0.7-4.5); Lymphocytes % 3.4 % (10-50); Mean Corpuscular HGB Conc 30.3 g/dL (31.8-35.4); Mean Corpuscular Hemoglobin 30.4 pg (27.0-31.2); Mean Corpuscular Volume 100.5 fl (80-94); Mean Platelet Volume 9.2 fl (7.4-10.4); Monocytes # 0.9 K/mm3 (0.1-1.0); Monocytes % 2.8 % (1.7-9.3); Neutrophils # 30.7 K/mm3 (1.8-7.8); Neutrophils % 93.4 % (37.0-80.0); Platelet Count 314 K/mm3 (142-424); Red Blood Count 3.39 M/mm3 (4.60-6.20); Red Cell Distribution Width 16.1 % (11.5-17.5); White Blood Count 32.8 K/mm3 (4.8-10.8)
[2020-11-30 11:49] LABS: Chloride 100 mmol/L (98-107); Potassium 3.1 mmoL/L (3.5-5.1); Sodium 137 mmol/L (136-145)
[2020-11-30 11:52] LABS: Anion Gap 15.1 mEq/L (5-15); Blood Urea Nitrogen 77 mg/dl (9-20); Calcium 7.9 mg/dl (8.4-10.2); Carbon Dioxide 25 mmol/L (22.0-30.0); Creatinine Clearance Estimated 19 mL/min (50-200); Estimated Glomerular Filt Rate 22 ml/min (>60); GFR (African American) 27 ML/MIN (>60); Glucose 162 mg/dl (74-100)
[2020-11-30 11:54] LABS: MANUAL DIFFERENTIAL MANUAL DIFFERENTIAL (MANUAL DIFF)
--- NOTE | 2020-11-30 12:01 | PC.WOUNDNOTE ---
Ulcer to coccyx, measuring 3 cm x 4 cm. Area surrounding excoriated. Area cleaned and dressing applied.
[2020-11-30 12:24] LABS: Lymphocytes % 3 % (10-50); Monocytes % 2 % (2-9); Neutrophils % 95 % (42-76); Nucleated Red Blood Cells 1; Total Cells Counted 100
[2020-11-30 12:25] LABS: Hypochromasia 2+; Macrocytosis 1+; Platelet Estimate Normal
--- NOTE | 2020-11-30 14:58 | PC.NURSE ---
Perineal area excoriated, Stage I open to air
--- NOTE | 2020-11-30 14:59 | PC.NURSE ---
R Heel, blister intact. Heels floating
--- NOTE | 2020-11-30 15:09 | PC.NURSE ---
1155 - Spoke to pt's daughter, code status was addressed. Pt is a full code. Received consent via phone to obtain pictures of wounds. She was updated on plan of care @ this time as well.
[2020-12-01] VITALS (27 sets, daily range): BP systolic 84–111; BP diastolic 43–61; PULSE 66–103; RESP 15–48; TEMP 36.2–37; O2SAT 91–100
--- NOTE | 2020-12-01 05:33 | PC.NURSE ---
Pt has been hypotensive at times. Remains on Anthony gtt. Currently infusing @ 240 mcg/min. Diltiazem gtt infusing @ 5 ml/hr.. Pt remains on 2L O2 NC. Coarse crackles noted t/o lung forrest. Pt is currently NPO. Has asked multiple times for something to drink. Oral care provided. Cervical collar in place. Will continue to monitor.
[2020-12-01 05:55] LABS: Basophils # 0.1 K/mm3 (0-0.2); Basophils % 0.2 % (0.1-2.0); Eosinophils # 0.1 K/mm3 (0.0-0.4); Eosinophils % 0.4 % (0.1-12.0); Hematocrit 24.8 % (42.0-52.0); Lymphocytes # 1.1 K/mm3 (0.7-4.5); Lymphocytes % 4.9 % (10-50); Mean Corpuscular HGB Conc 31.4 g/dL (31.8-35.4); Mean Corpuscular Hemoglobin 30.5 pg (27.0-31.2); Mean Corpuscular Volume 97.3 fl (80-94); Mean Platelet Volume 9.4 fl (7.4-10.4); Monocytes % 4.2 % (1.7-9.3); Neutrophils # 20.9 K/mm3 (1.8-7.8); Neutrophils % 90.3 % (37.0-80.0); Platelet Count 249 K/mm3 (142-424); Red Blood Count 2.55 M/mm3 (4.60-6.20); Red Cell Distribution Width 16.4 % (11.5-17.5); White Blood Count 23.1 K/mm3 (4.8-10.8)
[2020-12-01 05:58] LABS: MANUAL DIFFERENTIAL MANUAL DIFFERENTIAL (MANUAL DIFF)
[2020-12-01 06:01] LABS: Hemoglobin 7.8 g/dL (14.1-18.0)
[2020-12-01 06:43] LABS: Chloride 119 mmol/L (98-107); Sodium 144 mmol/L (136-145)
[2020-12-01 06:44] LABS: Potassium 3.4 mmoL/L (3.5-5.1)
[2020-12-01 06:47] LABS: Anion Gap 14.4 mEq/L (5-15); Blood Urea Nitrogen 69 mg/dl (9-20); Calcium 7.6 mg/dl (8.4-10.2); Carbon Dioxide 14 mmol/L (22.0-30.0); Creatinine Clearance Estimated 30 mL/min (50-200); Estimated Glomerular Filt Rate 34 ml/min (>60); GFR (African American) 41 ML/MIN (>60); Glucose 85 mg/dl (74-100)
[2020-12-01 07:25] LABS: Anisocytosis 1+; Hypochromasia 2+; Lymphocytes % 6 % (10-50); Macrocytosis 2+; Monocytes % 5 % (2-9); Neutrophils % 89 % (42-76); Platelet Estimate Normal; Total Cells Counted 100
--- NOTE | 2020-12-01 08:10 | SW/DCPLANNER ---
Addendum entered by Yasmin Moya 12/05/20 06:38: Patient .... Original Note: This patient currently resides at [facility]. I spoke with Ginger this AM and she stated that patient is SNF level of care. I will continue to follow up with Ginger once patient is medically stable for discharge. Updated patient information will be faxed to Ginger this AM.
--- NOTE | 2020-12-01 08:11 | HMH.ACPN2 ---
Internal Medicine - PN: Subj *Date: 12/01/20 *Time: 12:41 Interval history: 80-year-old male patient sitting in bed oxygenation currently 91% on 2 L per nasal cannula. Anthony-Synephrine infusing and current blood pressure is 87/61 with a heart rate of 71. He is requesting liquids, explained that he cannot have anything due to his swallowing ability. Long discussion with patient's daughter regarding CODE STATUS, she does agree to make patient DNR with possible hospice discussion in the future. Will get wound care consult for blister on right heel and stage II on coccyx Exam Vital signs and Labs for Last 24 Hours: Temp Pulse Resp BP Pulse Ox 98.1 F 81 19 89/47 L 99 12/01/20 04:00 12/01/20 07:00 12/01/20 07:00 12/01/20 07:00 12/01/20 07:00 Laboratory Results - last 24 hr 11/30/20 01:40: Urine Color Red, Urine Appearance Turbid, Urine pH 8.5, Ur Specific [place] 1.010, Urine Protein 3+, Urine Glucose (UA) Negative, Urine Ketones Trace, Urine Blood 3+, Urine Nitrate Positive, Urine Bilirubin Negative, Urine Urobilinogen 1.0, Ur Leukocyte Esterase 1+ A, Urine RBC Tntc, Urine WBC 5-10, Urine Bacteria 3+ 11/30/20 11:22: WBC 32.8 H* D, RBC 3.39 L, Hgb 10.3 L, Hct 34.0 L, MCV 100.5 H, MCH 30.4, MCHC 30.3 L, RDW 16.1, Plt Count 314, MPV 9.2, Neut % (Auto) 93.4 H, Lymph % (Auto) 3.4 L, Davis % (Auto) 2.8, Eos % (Auto) 0.2, Baso % (Auto) 0.3, Neut # (Auto) 30.7 H, Lymph # (Auto) 1.1, Davis # (Auto) 0.9, Eos # (Auto) 0.1, Baso # (Auto) 0.1, Total Counted 100, Neutrophils % (Manual) 95 H, Lymphocytes % (Manual) 3 L, Monocytes % (Manual) 2, Nucleated RBCs 1, Platelet Estimate Normal, Hypochromasia 2+, Macrocytosis 1+ 11/30/20 11:22: Sodium 137, Potassium 3.1 L, Chloride 100, Carbon Dioxide 25, Anion Gap 15.1 H, BUN 77 H, Creatinine 2.80 H, Estimated Creat Clear 19, Estimated GFR 22 L, Est GFR ( Amer) 27 L, Glucose 162 H D, Calcium 7.9 L 12/01/20 05:40: WBC 23.1 H* D, RBC 2.55 L, Hgb 7.8 L D, Hct 24.8 L, MCV 97.3 H, MCH 30.5, MCHC 31.4 L, RDW 16.4, Plt Count 249, MPV 9.4, Neut % (Auto) 90.3 H, Lymph % (Auto) 4.9 L, Davis % (Auto) 4.2, Eos % (Auto) 0.4, Baso % (Auto) 0.2, Neut # (Auto) 20.9 H, Lymph # (Auto) 1.1, Davis # (Auto) 1.0, Eos # (Auto) 0.1, Baso # (Auto) 0.1, Total Counted 100, Neutrophils % (Manual) 89 H, Lymphocytes % (Manual) 6 L, Monocytes % (Manual) 5, Platelet Estimate Normal, RBC Morphology Not Reportable, Hypochromasia 2+, Anisocytosis 1+, Macrocytosis 2+ 12/01/20 05:40: Sodium 144, Potassium 3.4 L, Chloride 119 H, Carbon Dioxide 14 L, Anion Gap 14.4, BUN 69 H, Creatinine 1.90 H D, Estimated Creat Clear 30, Estimated GFR 34 L, Est GFR ( Amer) 41 L D, Glucose 85 D, Calcium 7.6 L I & O for Last 24 hours: Intake & Output 11/28/20 11/29/20 11/30/20 12/01/20 23:59 23:59 23:59 23:59 Intake Total 1429 / 1429 Output Total 1974 / 5 500 / 500 Balance -546 / -1046 -500 / -500 Weight 151 lb 7 oz 151 lb Microbiology Reports for the Last 24 Hours: Microbiology 11/30/20 01:40 Urine,Catheterized Urine Culture - Preliminary Gram Negative Rods - Constitutional no acute distress - *Routine Neck Exam Present: trachea midline. Absent: tracheal deviation - *Routine Respiratory Exam Present: decreased breath sounds, rales - *Routine Cardiovascular Exam Present: irregularly irregular - *Routine Abdominal Exam Present: soft, normoactive bowel sounds. Absent: tenderness, distended - *Routine Extremities Exam Present: edema, calf tenderness. Absent: cyanosis Comments: LLE Edematous L Calf Tender - *Routine Skin Exam Present: dry, warm, lesions, wounds. Absent: intact Comments: Stg II Coccyx Large blister R Heel - *Routine Neurological Exam Present: alert, altered mental status. Absent: oriented X3 - Routine Psychiatric Exam Present: unable to assess Assessment and Plan (1) BACILIO (acute kidney injury) Status: Acute Category: Medical Code(s):
--- NOTE | 2020-12-01 08:55 | HMH.PNCARD ---
Subjective Date: 12/01/20 Time: 08:30 Principal diagnosis: afib, hypotension Interval history: This is an 80-year-old white gentleman who presented [facility] the emergency department from the shelter with hypotension and hematuria. The patient is currently being treated for sepsis. He was in atrial fibrillation with RVR and had hypotension. He is currently on a diltiazem drip with rate control. He remains on a Anthony-Synephrine drip for blood pressure support. He denies any chest pain or pressure. He states he may have some mild shortness of breath intermittently but nothing that is out of the normal for him. He is still having lower back pain and neck pain from a fall. He denies any fever, chills, nausea, vomiting, diarrhea, PND or orthopnea. The patient still in a c-collar from his most recent fall. Exam Vital signs and Labs for Last 24 Hours: Temp Pulse Resp BP Pulse Ox 98.1 F 78 15 111/53 L 99 12/01/20 04:00 12/01/20 08:00 12/01/20 08:00 12/01/20 08:00 12/01/20 08:00 Laboratory Results - last 24 hr 11/30/20 01:40: Urine Color Red, Urine Appearance Turbid, Urine pH 8.5, Ur Specific [place] 1.010, Urine Protein 3+, Urine Glucose (UA) Negative, Urine Ketones Trace, Urine Blood 3+, Urine Nitrate Positive, Urine Bilirubin Negative, Urine Urobilinogen 1.0, Ur Leukocyte Esterase 1+ A, Urine RBC Tntc, Urine WBC 5-10, Urine Bacteria 3+ 11/30/20 11:22: WBC 32.8 H* D, RBC 3.39 L, Hgb 10.3 L, Hct 34.0 L, MCV 100.5 H, MCH 30.4, MCHC 30.3 L, RDW 16.1, Plt Count 314, MPV 9.2, Neut % (Auto) 93.4 H, Lymph % (Auto) 3.4 L, [place] % (Auto) 2.8, Eos % (Auto) 0.2, Baso % (Auto) 0.3, Neut # (Auto) 30.7 H, Lymph # (Auto) 1.1, [place] # (Auto) 0.9, Eos # (Auto) 0.1, Baso # (Auto) 0.1, Total Counted 100, Neutrophils % (Manual) 95 H, Lymphocytes % (Manual) 3 L, Monocytes % (Manual) 2, Nucleated RBCs 1, Platelet Estimate Normal, Hypochromasia 2+, Macrocytosis 1+ 11/30/20 11:22: Sodium 137, Potassium 3.1 L, Chloride 100, Carbon Dioxide 25, Anion Gap 15.1 H, BUN 77 H, Creatinine 2.80 H, Estimated Creat Clear 19, Estimated GFR 22 L, Est GFR ( Amer) 27 L, Glucose 162 H D, Calcium 7.9 L 12/01/20 05:40: WBC 23.1 H* D, RBC 2.55 L, Hgb 7.8 L D, Hct 24.8 L, MCV 97.3 H, MCH 30.5, MCHC 31.4 L, RDW 16.4, Plt Count 249, MPV 9.4, Neut % (Auto) 90.3 H, Lymph % (Auto) 4.9 L, [place] % (Auto) 4.2, Eos % (Auto) 0.4, Baso % (Auto) 0.2, Neut # (Auto) 20.9 H, Lymph # (Auto) 1.1, [place] # (Auto) 1.0, Eos # (Auto) 0.1, Baso # (Auto) 0.1, Total Counted 100, Neutrophils % (Manual) 89 H, Lymphocytes % (Manual) 6 L, Monocytes % (Manual) 5, Platelet Estimate Normal, RBC Morphology Not Reportable, Hypochromasia 2+, Anisocytosis 1+, Macrocytosis 2+ 12/01/20 05:40: Sodium 144, Potassium 3.4 L, Chloride 119 H, Carbon Dioxide 14 L, Anion Gap 14.4, BUN 69 H, Creatinine 1.90 H D, Estimated Creat Clear 30, Estimated GFR 34 L, Est GFR ( Amer) 41 L D, Glucose 85 D, Calcium 7.6 L I & O for Last 24 hours: Intake & Output 11/28/20 11/29/20 11/30/20 12/01/20 23:59 23:59 23:59 23:59 Intake Total 1429 / 1429 Output Total 1974 / 5 500 / 500 Balance -546 / -1046 -500 / -500 Weight 151 lb 7 oz 151 lb Microbiology Reports for the Last 24 Hours: Microbiology 11/30/20 01:40 Urine,Catheterized Urine Culture - Preliminary Gram Negative Rods - Constitutional no acute distress, average body habitus, chronically ill appearing - *Routine HEENT Exam Head: Present: normocephalic, atraumatic Eye: Present: EOMI, PERRL ENT: Present: mucous membranes moist - *Routine Neck Exam Present: supple, full ROM. Absent: JVD, lymphadenopathy - *Routine Respiratory Exam Present: decreased breath sounds, crackles - *Routine Cardiovascular Exam Present: Normal S1, Normal S2, irregularly irregular. Absent: murmur - *Routine Abdominal Exam Present: soft, normoactive bowel sounds. Absent: tenderness, distended - *Routine Extremities Exam Present: freedom
--- NOTE | 2020-12-01 09:22 | CA_ITS ---
APPROVED REPORT EXAM: Limited 2D Echocardiogram Application Programmer Analyst: Yulissa Moon RVT Ht: 6 ft 0 in Wt: 151lbs BSA: 1.89 BP: 111/53 mmHg Indications: EF CHECK,CRACKLES,A-FIB,,HX COVID,COPD,EDEMA TDS-PT FLAT ON BACK IN NECK COLLAR 2D Dimensions LVOT 2.02 cm (M/F) 1.5-2.5 M-Mode Dimensions RVDd 2.41 cm (0.9-2.6) LA Diam 4.76 cm (1.9-4.0) LVDd 3.95 cm (3.5-5.7) Ao Diam 3.24 cm (2.0-3.7) LVDs 2.61 cm (3.5-5.7) IVSd 1.56 cm (0.6-1.1) PWd 1.16 cm (0.6-1.1) EF (Teich) 63.50% FS 33.90% EDV (Teich) 67.90 mL ESV (Teich) 24.80 mL Conclusion 1. Limited echocardiogram was performed to evaluate left ventricular systolic function, left ventricle is normal size, estimated ejection fraction 55% with no regional wall motion abnormality. 2. No significant pericardial effusion noted. Electronically signed by : Mert Lares MD 12/01/2020 14:30:16
--- NOTE | 2020-12-01 09:58 | XR_ITS ---
PROCEDURE: XR CHEST PORTABLE CLINICAL HISTORY: SOA COMPARISON: CR XR CHEST 2V from 10/18/2020 CR XR CHEST PORTABLE from 10/31/2020 CR XR CHEST PORTABLE from 11/30/[address] ABDOMEN PELVIS WO CON from 11/30/2020 FINDINGS: The cardiomediastinal silhouette and pulmonary vascularity are within normal limits. COPD changes with mild prominence of the interstitium. Increasing density in the right lower lobe suggesting pneumonia now with a small right pleural effusion No acute bony abnormalities. IMPRESSION: Worsening right lower lobe pneumonia with small right effusion Dictated by: Santosh Haas MD 12/01/2020 11:00 Santosh Haas MD in [place] 12/01/2020 11:00
--- NOTE | 2020-12-01 12:12 | HMH.PTWOUND ---
Rehab Inpt Wound Evaluation Rehab IP Wound Evaluation Start: 12/01/20 09:58 Freq: ONCE Status: Active Protocol: Document 12/01/20 11:54 [email or web address] (Rec: 12/01/20 12:12 [email or web address] [id number]) Rehab PT Wound Assessment Patient Status Premedicated Prior to Dressing Change No Subjective Subjective Pt is referred from a [facility]. Pt states he fell and hurts all over (pt states he fell yesturday but said he cant remember exactly). Pt was A&O x2 but was confused where he came from. Pt has two wounds, one on his R heel and the other sacral. Pt is a poor historian. Pt states his feet are very cold today. Pt states his R heel felt very painful. - note done by Ely Villalta, [facility] Wound Sacrum Wound Type Pressure Ulcer Wound Staging Stage II Query Text:Stage I - Unbroken, red skin, no blanching. Stage II - Skin broken, superficial skin loss involving epidermis alone or also dermis. Partial loss of skin layers. Stage III - Pressure area involves epidermis, dermis and subcutaneous tissue, full thickness skin loss. Stage IV - Pressure area involves epidermis, subcutaneous tissue, bone and other supportive tissue. Full thickness skin loss with extensive destruction of underlying tissue and structures. Wound Bed Appearance Yellow,Slough,Eschar,Necrotic Percentage of Eschar (Black) (%) 80 Percentage of Eschar (Yellow) (%) 20 Wound Margins Description Macerated Surrounding Tissue Appearance [place],Macerated Primary Dressing Absorbant Pad Comment optifoam pad Left Distal [place]aker Edema Degree 2+ Query Text:1+ Trace, Barely Detectable, Rebound 15-30 seconds 2+ Moderate, Slight Indentation, Rebound 10-20 seconds 3+ Deep, Deeper Indentation, Rebound > 30 seconds 4+ Very Deep, Rebound > 60 seconds Edema Appearance Weeping Right Heel Wound Type Blister Is This a Chronic Wound Yes Wound Bed Appearance Blisters Wound Margins Description Well Defined Surrounding Tissue Appearance Blanched/Dull Edema Type Pitting Edema Degree 4+ Query Text:1+ Trace, Barely Detectabl
--- NOTE | 2020-12-01 12:51 | HMH.CONS ---
*Admission Date: 11/30/20 *Reason for consult:: Gross hematuria *History of present illness: Patient is an 80-year-old white male known to me from recent office visit. The was admitted on November 30 with gross hematuria and hypotension. His white count was noted to be 32.8 in the and other laboratories consistent with a septic picture. He was admitted to the hospital and placed on IV antibiotics. He is also on pressure support medications. He was scheduled for cystoscopy last week but patient ate before his procedure and we had to cancel it. His white count has improved from admission and was 23.1 this morning. His creatinine has improved from 2.8-1.9. His urine is still grossly bloody but per nursing staff is looking better than yesterday. His urine culture is growing out 100,000 gram-negative rods with ID pending. [facility] History Medical History: Reports:: Atrial Fibrillation, Chronic Obstructive Pulmonary Disease (COPD), Coronary Artery Disease, Deep Vein Thrombosis, Hypertension Denies:: Atherosclerotic Heart Disease, Cerebrovascular Accident, Diabetes Mellitus Type 1, Diabetes Mellitus Type 2 *Have you ever received a pneumonia vaccine?: Yes *Have you received a flu vaccine this season?: Yes Other Medical History: Reports: Anemia, Arthritis Other Surgeries: Yes: No Previous Surgery, Colonoscopy Amputation: No Fractures: No - *Social History Smoking Status: Current every day smoker # Packs/Day (cigarettes): 1 Alcohol Intake: never *Occupational Status:: retired Housing: prison *Travel in the last 8 weeks: None Family Hx:: Unable to obtain Review of Systems - Review of Systems Review of systems:: pertinent systems reviewed and negative unless documented below - *Neurologic Reports abnormal walking, Reports weakness, Denies abnormal hearing, Denies localized weakness Meds Home Medications Medication Instructions Recorded Confirmed Type Donepezil HCl [Aricept 10mg 10 mg PO HS 11/20/18 11/30/20 History tablet] Memantine HCl 10 mg PO BID 11/20/18 11/30/20 History Pentoxifylline 400 mg PO TID 11/20/18 11/30/20 History Albuterol Sulfate [Ventolin HFA 2 puffs IH Q6HP PRN #1 inh 11/23/18 11/30/20 Rx Inhaler] Ibuprofen [Ibuprofen 600mg 600 mg PO Q8HP PRN 30 Days #90 tab 01/22/19 11/30/20 Rx Tablet] hydroCHLOROthiazide [HCTZ 25mg 25 mg PO DAILY 10/18/20 11/30/20 History tab] Loperamide HCl [Loperamide] 2 mg PO Q4HP PRN 11/01/20 11/30/20 History oxycodone-acetaminophen 10 mg-325 1 tab PO QID #120 tab 11/04/20 11/30/20 Rx mg tablet Amitriptyline HCl [Elavil 25mg 25 mg PO HS 11/23/20 11/30/20 History tablet] Buspirone HCl [Buspar 5mg tablet] 5 mg PO BID 11/23/20 11/30/20 History Guaifenesin/Dextromethorphan 10 ml PO Q6HP PRN 11/23/20 11/30/20 History [Robafen Dm Cough 100-10 mg/5Ml] Ipratropium/Albuterol Sulfate 3 ml IH Q6HP PRN 11/30/20 11/30/20 History [Duoneb 3mL neb] Tamsulosin HCl 0.4 mg PO HS 11/30/20 11/30/20 History Allergies Allergy/AdvReac Type Severity Reaction Status Date / Time No Known Allergies Allergy Verified 11/23/18 12:21 Exam Vital signs and Labs for Last 24 Hours: Temp Pulse Resp BP Pulse Ox 97.7 F 81 24 101/54 L 98 12/01/20 12:42 12/01/20 12:00 12/01/20 12:00 12/01/20 12:00 12/01/20 12:00 Laboratory Results - last 24 hr 11/30/20 01:40: Urine Color Red, Urine Appearance Turbid, Urine pH 8.5, Ur Specific [place] 1.010, Urine Protein 3+, Urine Glucose (UA) Negative, Urine Ketones Trace, Urine Blood 3+, Urine Nitrate Positive, Urine Bilirubin Negative, Urine Urobilinogen 1.0, Ur Leukocyte Esterase 1+ A, Urine RBC Tntc, Urine WBC 5-10, Urine Bacteria 3+ 12/01/20 05:40: WBC 23.1 H* D, RBC 2.55 L, Hgb 7.8 L D, Hct 24.8 L, MCV 97.3 H, MCH 30.5, MCHC 31.4 L, RDW 16.4, Plt Count 249, MPV 9.4, Neut % (Auto) 90.3 H, Lymph % (Auto) 4.9 L, [place] % (Auto) 4.2, Eos % (Auto) 0.4, Baso % (Auto) 0.2, Neut # (Auto) 20.9 H, Lymph # (Auto)
[2020-12-02] VITALS (46 sets, daily range): BP systolic 85–111; BP diastolic 41–71; PULSE 80–113; RESP 18–31; TEMP 34.6–36.7; O2SAT 88–100
--- NOTE | 2020-12-02 05:14 | PC.NURSE ---
pt restless, confused, and thirsty most of shift, educated and reinforced that pt NPO this shift, but pt very confused and never understood NPO status, weaning vasoactive drips throughout shift, vaso on 0.02units/hr, hugh on 70mcg/kg/min, and dilt unchanged at 5mL/hr; pt's VSS, pt with frequent productive cough this shift, c-collar remains in place, pt's UOP clearing up throughout shift pink-yellow at present, will continue to monitor
[2020-12-02 06:21] LABS: Basophils % 0.1 % (0.1-2.0); Eosinophils % 0.1 % (0.1-12.0); Hematocrit 25.9 % (42.0-52.0); Hemoglobin 7.9 g/dL (14.1-18.0); Lymphocytes % 5.1 % (10-50); Mean Corpuscular HGB Conc 30.5 g/dL (31.8-35.4); Mean Corpuscular Hemoglobin 30.4 pg (27.0-31.2); Mean Corpuscular Volume 99.7 fl (80-94); Mean Platelet Volume 8.7 fl (7.4-10.4); Monocytes # 0.7 K/mm3 (0.1-1.0); Monocytes % 3.8 % (1.7-9.3); Neutrophils # 17.1 K/mm3 (1.8-7.8); Neutrophils % 90.9 % (37.0-80.0); Platelet Count 215 K/mm3 (142-424); Red Cell Distribution Width 16.7 % (11.5-17.5); White Blood Count 18.8 K/mm3 (4.8-10.8)
[2020-12-02 06:23] LABS: MANUAL DIFFERENTIAL MANUAL DIFFERENTIAL (MANUAL DIFF)
[2020-12-02 06:39] LABS: Chloride 117 mmol/L (98-107); Sodium 146 mmol/L (136-145)
[2020-12-02 06:42] LABS: Anion Gap 16.7 mEq/L (5-15); Blood Urea Nitrogen 57 mg/dl (9-20); Carbon Dioxide 15 mmol/L (22.0-30.0); Creatinine Clearance Estimated 32 mL/min (50-200); Estimated Glomerular Filt Rate 36 ml/min (>60); GFR (African American) 44 ML/MIN (>60)
[2020-12-02 06:43] LABS: Calcium 7.5 mg/dl (8.4-10.2); Glucose 104 mg/dl (74-100)
[2020-12-02 07:29] LABS: Anisocytosis 1+; Hypochromasia 2+; Lymphocytes % 2 % (10-50); Macrocytosis 2+; Monocytes % 4 % (2-9); Neutrophils % 94 % (42-76); Platelet Estimate Normal; Total Cells Counted 100
[2020-12-02 07:46] LABS: Potassium 2.7 mmoL/L (3.5-5.1)
--- NOTE | 2020-12-02 08:07 | HMH.PNCARD ---
Subjective Date: 12/02/20 Time: 07:50 Principal diagnosis: afib, hypotension Interval history: This is an 80-year-old gentleman who [facility] with [facility] and hematuria. The patient is being treated for sepsis. He was in atrial fibrillation with RVR and had hypotension. He is still currently on a diltiazem drip with rate control of atrial fibrillation. He is still currently on a Anthony-Synephrine and vasopressin drip for blood pressure support. The patient denies any chest pain or pressure. He states he has some mild shortness of breath intermittently but overall this is much better. He is only complaining of neck pain today and his mouth being dry. He denies any fever, chills, nausea, vomiting, diarrhea, PND or orthopnea. The patient remains in a c-collar from his most recent fall. Interval history: This is an 80-year-old white gentleman who [facility] with hypotension and hematuria. The patient is currently being treated for sepsis. He was in atrial fibrillation with RVR and had hypotension. He is currently on a diltiazem drip with rate control. He remains on a Anthony-Synephrine drip for blood pressure support. He denies any chest pain or pressure. He states he may have some mild shortness of breath intermittently but nothing that is out of the normal for him. He is still having lower back pain and neck pain from a fall. He denies any fever, chills, nausea, vomiting, diarrhea, PND or orthopnea. The patient still in a c-collar from his most recent fall. Exam Vital signs and Labs for Last 24 Hours: Temp Pulse Resp BP Pulse Ox 96.3 F L 85 21 103/50 L 100 12/02/20 05:00 12/02/20 06:40 12/02/20 06:40 12/02/20 06:40 12/02/20 06:40 Laboratory Results - last 24 hr 12/02/20 05:39: WBC 18.8 H, RBC 2.60 L, Hgb 7.9 L, Hct 25.9 L, MCV 99.7 H, MCH 30.4, MCHC 30.5 L, RDW 16.7, Plt Count 215, MPV 8.7, Neut % (Auto) 90.9 H, Lymph % (Auto) 5.1 L, [place] % (Auto) 3.8, Eos % (Auto) 0.1, Baso % (Auto) 0.1, Neut # (Auto) 17.1 H, Lymph # (Auto) 1.0, [place] # (Auto) 0.7, Eos # (Auto) 0.0, Baso # (Auto) 0.0, Total Counted 100, Neutrophils % (Manual) 94 H, Lymphocytes % (Manual) 2 L, Monocytes % (Manual) 4, Platelet Estimate Normal, Hypochromasia 2+, Anisocytosis 1+, Macrocytosis 2+ 12/02/20 05:39: Sodium 146 H, Potassium 2.7 L* D, Chloride 117 H, Carbon Dioxide 15 L, Anion Gap 16.7 H, BUN 57 H, Creatinine 1.80 H, Estimated Creat Clear 32, Estimated GFR 36 L, Est GFR ( Amer) 44 L, Glucose 104 H D, Calcium 7.5 L I & O for Last 24 hours: Intake & Output 11/29/20 11/30/20 12/01/20 12/02/20 23:59 23:59 23:59 23:59 Intake Total 1429 / 1429 2554 / 2554 Output Total 1975 / 2475 2400 / 2850 450 / 450 Balance -546 / -1046 154 / -296 -450 / -450 Weight 151 lb 7 oz 151 lb Microbiology Reports for the Last 24 Hours: Microbiology 11/30/20 01:40 Urine,Catheterized Urine Culture - Final Proteus mirabilis 11/30/20 01:40 Blood Blood Culture - Preliminary NO GROWTH AFTER 48 HOURS 11/30/20 01:40 Blood Blood Culture - Preliminary NO GROWTH AFTER 48 HOURS 12/01/20 14:10 Sputum - Expectorated Sputum Gram Stain - Final Narrative: Telemetry strip shows atrial fibrillation with a rate of 95. - Constitutional no acute distress, average body habitus - *Routine HEENT Exam Head: Present: normocephalic, atraumatic Eye: Present: EOMI, PERRL ENT: Present: mucous membranes moist - *Routine Neck Exam Present: normal carotid upstroke. Absent: JVD, carotid bruit, lymphadenopathy Comments: C-collar in place. - *Routine Respiratory Exam Present: CTA bilaterally - *Routine Cardiovascular Exam Present: Normal S1, Normal S2, irregularly irregular. Absent: murmur - *Routine Abdominal Exam Present: soft, normoactive bowel sounds. A
--- NOTE | 2020-12-02 11:28 | HMH.ACPN2 ---
Internal Medicine - PN: Subj *Date: 12/02/20 *Time: 09:00 Interval history: pt asking for water and something to drink Exam Vital signs and Labs for Last 24 Hours: Temp Pulse Resp BP Pulse Ox 96.3 F L 85 21 103/50 L 100 12/02/20 05:00 12/02/20 06:40 12/02/20 06:40 12/02/20 06:40 12/02/20 06:40 Laboratory Results - last 24 hr 12/02/20 05:39: WBC 18.8 H, RBC 2.60 L, Hgb 7.9 L, Hct 25.9 L, MCV 99.7 H, MCH 30.4, MCHC 30.5 L, RDW 16.7, Plt Count 215, MPV 8.7, Neut % (Auto) 90.9 H, Lymph % (Auto) 5.1 L, [place] % (Auto) 3.8, Eos % (Auto) 0.1, Baso % (Auto) 0.1, Neut # (Auto) 17.1 H, Lymph # (Auto) 1.0, [place] # (Auto) 0.7, Eos # (Auto) 0.0, Baso # (Auto) 0.0, Total Counted 100, Neutrophils % (Manual) 94 H, Lymphocytes % (Manual) 2 L, Monocytes % (Manual) 4, Platelet Estimate Normal, Hypochromasia 2+, Anisocytosis 1+, Macrocytosis 2+ 12/02/20 05:39: Sodium 146 H, Potassium 2.7 L* D, Chloride 117 H, Carbon Dioxide 15 L, Anion Gap 16.7 H, BUN 57 H, Creatinine 1.80 H, Estimated Creat Clear 32, Estimated GFR 36 L, Est GFR ( Amer) 44 L, Glucose 104 H D, Calcium 7.5 L 12/02/20 09:00: Blood Type O Negative, Antibody Screen Negative, Crossmatch (AHG) See Detail 12/02/20 10:50: Blood Type Confirm O Negative I & O for Last 24 hours: Intake & Output 11/29/20 11/30/20 12/01/20 12/02/20 11:59 11:59 11:59 11:59 Intake Total 1429 / 1429 2554 / 2554 Output Total 1600 / 1600 875 / 875 2350 / 2350 Balance -1600 / -1600 554 / 554 204 / 204 Weight 140 lb 151 lb Microbiology Reports for the Last 24 Hours: Microbiology 11/30/20 01:40 Urine,Catheterized Urine Culture - Final Proteus mirabilis 11/30/20 01:40 Blood Blood Culture - Preliminary NO GROWTH AFTER 48 HOURS 11/30/20 01:40 Blood Blood Culture - Preliminary NO GROWTH AFTER 48 HOURS 12/01/20 14:10 Sputum - Expectorated Sputum Gram Stain - Final - Constitutional no acute distress, chronically ill appearing - *Routine HEENT Exam Head: Present: normocephalic Eye: Present: PERRL ENT: Present: mucous membranes moist - *Routine Neck Exam Comments: neck collar in place - *Routine Respiratory Exam Present: rhonchi - *Routine Cardiovascular Exam Present: RRR - *Routine Abdominal Exam Present: soft, normoactive bowel sounds. Absent: tenderness - *Routine Extremities Exam Absent: cyanosis, clubbing, edema - *Routine Skin Exam Present: warm. Absent: rash - *Routine Neurological Exam Present: alert Assessment and Plan (1) A-fib Status: Acute Qualifiers: Atrial fibrillation type: unspecified Qualified Code(s): I48.91 - Unspecified atrial fibrillation Category: Medical Code(s): I48.91 - Unspecified atrial fibrillation (2) Hypotension Status: Acute Category: Medical Code(s): I95.9 - Hypotension, unspecified (3) Septic shock Status: Acute Category: Medical Code(s): A41.9 - Sepsis, unspecified organism; R65.21 - Severe sepsis with septic shock (4) Hematuria Status: Acute Qualifiers: Hematuria type: gross Qualified Code(s): R31.0 - Gross hematuria Category: Medical Code(s): R31.9 - Hematuria, unspecified (5) BACILIO (acute kidney injury) Status: Acute Category: Medical Code(s): N17.9 - Acute kidney failure, unspecified (6) Edema of leg Status: Acute Category: Medical Code(s): R60.0 - Localized edema (7) Fall Status: Acute Qualifiers: Encounter type: initial encounter Qualified Code(s): W19.XXXA - Unspecified fall, initial encounter Category: Medical Code(s): W19.XXXA - Unspecified fall, initial encounter (8) Hypokalemia Status: Acute Category: Medical Code(s): E87.6 - Hypokalemia (9) Neck pain Status: Acute Category: Medical Code(s): M54.2 - Cervicalgia (10) Odontoid fracture with type II morphology Status: Acute Qualifiers: Encounter
--- NOTE | 2020-12-02 16:47 | HMH.CONFU ---
Internal Medicine - PN: Subj *Date: 12/02/20 *Time: 16:47 Interval history: 80-year-old white male with urosepsis and gross hematuria. His white count and renal function are improving. His urine today is tea colored and improving as well. Exam Vital signs and Labs for Last 24 Hours: Temp Pulse Resp BP Pulse Ox 94.2 F L 92 H 22 89/47 L 95 12/02/20 16:25 12/02/20 16:25 12/02/20 16:25 12/02/20 16:25 12/02/20 16:25 Laboratory Results - last 24 hr 12/02/20 05:39: WBC 18.8 H, RBC 2.60 L, Hgb 7.9 L, Hct 25.9 L, MCV 99.7 H, MCH 30.4, MCHC 30.5 L, RDW 16.7, Plt Count 215, MPV 8.7, Neut % (Auto) 90.9 H, Lymph % (Auto) 5.1 L, [place] % (Auto) 3.8, Eos % (Auto) 0.1, Baso % (Auto) 0.1, Neut # (Auto) 17.1 H, Lymph # (Auto) 1.0, [place] # (Auto) 0.7, Eos # (Auto) 0.0, Baso # (Auto) 0.0, Total Counted 100, Neutrophils % (Manual) 94 H, Lymphocytes % (Manual) 2 L, Monocytes % (Manual) 4, Platelet Estimate Normal, Hypochromasia 2+, Anisocytosis 1+, Macrocytosis 2+ 12/02/20 05:39: Sodium 146 H, Potassium 2.7 L* D, Chloride 117 H, Carbon Dioxide 15 L, Anion Gap 16.7 H, BUN 57 H, Creatinine 1.80 H, Estimated Creat Clear 32, Estimated GFR 36 L, Est GFR ( Amer) 44 L, Glucose 104 H D, Calcium 7.5 L 12/02/20 09:00: Blood Type O Negative, Antibody Screen Negative, Crossmatch (AHG) See Detail 12/02/20 10:50: Blood Type Confirm O Negative I & O for Last 24 hours: Intake & Output 11/29/20 11/30/20 12/01/20 12/02/20 23:59 23:59 23:59 23:59 Intake Total 1429 / 1429 2554 / 2554 0 / 0 Output Total 1974 2400 / 2850 1949 Balance -546 / -1046 154 / -296 -1949 Weight 68.691 kg 68.492 kg Microbiology Reports for the Last 24 Hours: Microbiology 11/30/20 01:40 Urine,Catheterized Urine Culture - Final Proteus mirabilis 11/30/20 01:40 Blood Blood Culture - Preliminary NO GROWTH AFTER 48 HOURS 11/30/20 01:40 Blood Blood Culture - Preliminary NO GROWTH AFTER 48 HOURS 12/01/20 14:10 Sputum - Expectorated Sputum Gram Stain - Final - Constitutional no acute distress - *Routine HEENT Exam Head: Present: normocephalic Eye: Present: EOMI, PERRL ENT: Present: mucous membranes moist - *Routine Neck Exam Present: supple. Absent: lymphadenopathy - *Routine Respiratory Exam Absent: accessory muscle use - *Routine Cardiovascular Exam Absent: JVD - *Routine Abdominal Exam Present: soft. Absent: tenderness - *Routine Extremities Exam Present: full ROM - *Routine Skin Exam Present: warm. Absent: rash - *Routine Neurological Exam Present: moving all extremities Assessment and Plan (1) A-fib Status: Acute Qualifiers: Qualified Code(s): I48.91 - Unspecified atrial fibrillation Category: Medical Code(s): I48.91 - Unspecified atrial fibrillation (2) Hypotension Status: Acute Category: Medical Code(s): I95.9 - Hypotension, unspecified (3) Septic shock Status: Acute Category: Medical Code(s): A41.9 - Sepsis, unspecified organism; R65.21 - Severe sepsis with septic shock (4) Hematuria Status: Acute Qualifiers: Qualified Code(s): R31.0 - Gross hematuria Category: Medical Code(s): R31.9 - Hematuria, unspecified Gross hematuria is improving. His urine culture grew out Proteus and antibiotics per the primary care docs. His white count and renal function continue to improve. He does have some baseline renal insufficiency. (5) BACILIO (acute kidney injury) Status: Acute Category: Medical Code(s): N17.9 - Acute kidney failure, unspecified (6) Edema of leg Status: Acute Category: Medical Code(s): R60.0 - Localized edema (7) Fall Status: Acute Qualifiers: Qualified Code(s): W19.XXXA - Unspecified fall, initial encounter Category: Medical Code(s): W19.XXXA - Unspecified fall, initial encounter (8) Hypokalemia Status: Acute Categ
--- NOTE | 2020-12-02 20:06 | PC.NURSE ---
PT IS RESTING IN BED. PT'S DRIPS HAVE BEEN TITRATED TO KEEP MAP >65. PT HAS REQUESTED WATER T/O THE ENTIRE SHIFT. PT HAS BEEN UNABLE TO SWALLOW WELL WITH THE C-COLLAR ON AND HAS REQUESTED SEVERAL TIMES FOR IT TO BE REMOVED. BEFORE 1ST BLOOD TRANSFUSION PT'S RECTAL TEMP WAS 94.7. BRENNAN HUGGER WAS APPLIED (BARBARA NOTIFIED AND SHE STATED SHE WOULD CALL PT'S DAUGHTER) MargotJOSEPKRISTEN CALLED BACK AND STATED THE DAUGHTER REQUESTED FOR PT TO CONTINUE ON THE DRIPS FOR NOW AND SHE WANTED HER FATHER TO GET BOTH UNITS OF BLOOD BUT SHE DID WANT THE C-COLLAR REMOVED SO HER FATHER COULD EAT AND DRINK AND SHE REQUESTED A HOSPICE CONSULT. HOSPICE SUPERVISOR [employer]ODUCTION [employer]NAG[employer] WAS NOTIFIED AND REQUESTED INFO ON PT AND WANTED PT'S DAUGHTERS NUMBER. PT'S LAST RECTAL TEMP WAS 95.5 BUT PT IS NOT WANTING TO LEAVE THE BRENNAN HUGGER B/C HE STATES IT IS SMOTHERING HIM. LUNG SOUNDS HAVE SCATTERED RHONCHI. PRODUCTIVE COUGH. ABDOMEN SOFT/NON TENDER WITH ACTIVE BOWEL SOUNDS. PT DID BETTER WITH SWALLOWING NECTAR THICK WATER AFTER THE C-COLLAR WAS REMOVED. STAGE 3 NOTED TO COCCYX. REDNESS NOTED TO BUTTOCKS. EDEMA NOTED TO BLE. NEW IV ACCESS NOTED TO MEI. REPORT HANDOFF TO HARDIK CHE RN.
[2020-12-03] VITALS (16 sets, daily range): BP systolic 74–95; BP diastolic 44–56; PULSE 83–104; RESP 12–30; TEMP 36.2–37.1; O2SAT 86–97
[2020-12-03 00:25] LABS: Hematocrit 34.1 % (42.0-52.0); Hemoglobin 10.3 g/dL (14.1-18.0)
--- NOTE | 2020-12-03 05:15 | PC.NURSE ---
Addendum entered by Tricia Espinoza RN 12/03/20 05:22: 1 unit prbc given this shift, H & H back WNL; pt's vasoactive drips keeping map above 60, hugh is at 140mcg/kg/min, dilt is at 5mg/hr, and vaso is at 0.03units/min, aury hugger turned off as pt's temp back WNL, pt's family to have POC talks today, will continue to monitor Original Note: pt's vasoactive drips keeping map above 60, hugh is at 140mcg/kg/min, dilt is at 5mg/hr, and vaso is at 0.03units/min, aury hugger turned off as pt's temp back WNL, pt's family to have POC talks today, will continue to monitor
[2020-12-03 06:36] LABS: Chloride 119 mmol/L (98-107)
[2020-12-03 06:37] LABS: Potassium 3.8 mmoL/L (3.5-5.1)
[2020-12-03 06:39] LABS: Basophils # 0.1 K/mm3 (0-0.2); Lymphocytes # 0.9 K/mm3 (0.7-4.5); Monocytes # 0.9 K/mm3 (0.1-1.0)
[2020-12-03 06:40] LABS: Anion Gap 19.8 mEq/L (5-15); Blood Urea Nitrogen 58 mg/dl (9-20); Calcium 8.2 mg/dl (8.4-10.2); Carbon Dioxide 15 mmol/L (22.0-30.0); Creatinine Clearance Estimated 30 mL/min (50-200); Estimated Glomerular Filt Rate 34 ml/min (>60); GFR (African American) 41 ML/MIN (>60); Glucose 104 mg/dl (74-100)
[2020-12-03 06:41] LABS: Sodium 150 mmol/L (136-145)
[2020-12-03 06:46] LABS: Basophils % 0.2 % (0.1-2.0); Eosinophils % 0.1 % (0.1-12.0); Hematocrit 36.7 % (42.0-52.0); Lymphocytes % 4.4 % (10-50); Mean Corpuscular HGB Conc 30.1 g/dL (31.8-35.4); Mean Corpuscular Hemoglobin 30.8 pg (27.0-31.2); Mean Corpuscular Volume 102.3 fl (80-94); Mean Platelet Volume 9.3 fl (7.4-10.4); Monocytes % 4.8 % (1.7-9.3); Neutrophils # 17.7 K/mm3 (1.8-7.8); Neutrophils % 90.4 % (37.0-80.0); Platelet Count 256 K/mm3 (142-424); Red Blood Count 3.59 M/mm3 (4.60-6.20); Red Cell Distribution Width 16.1 % (11.5-17.5); White Blood Count 19.6 K/mm3 (4.8-10.8)
--- NOTE | 2020-12-03 06:47 | PC.NURSE ---
notified MD Gaspar nonprofit fundraiser of pt's sodium of 150, no new orders at this time, will continue to monitor
[2020-12-03 06:49] LABS: MANUAL DIFFERENTIAL MANUAL DIFFERENTIAL (MANUAL DIFF)
[2020-12-03 06:50] LABS: Hypochromasia 2+; Lymphocytes % 5 % (10-50); Macrocytosis 2+; Neutrophils % 89 % (42-76); Platelet Estimate Normal; Rouleaux 1+; Total Cells Counted 100
--- NOTE | 2020-12-03 09:23 | PC.NURSE ---
Addendum entered by Rachel Luque RN 12/03/20 19:28: PT IS RESTING IN BED WITH FAMILY AT BEDSIDE. PT HAS RECEIVED MORPHINE NEEDED FOR COMFORT. TURNED AND REPOSITIONED PER FAMILY REQUEST. ORAL CARE PROVIDED. PULSE VERY WEAK/THREADY. MOTTLING NOTED TO BLE/BUE. WILL CONTINUE COMFORT CARE. REPORT HANDOFF TO FACUNDO CARRERA RN. Addendum entered by Rachel Luque RN 12/03/20 12:51: ALL FAMILY MEMBERS HAVE ARRIVED AT BEDSIDE. DAUGHTER HAS REQUESTED AT THIS TIME 1245 THAT ALL DRIPS BE STOPPED AND BLOOD PRESSURE CUFF TO BE REMOVED. COURTESY CART AT BEDSIDE. PT APPEARS COMFORTABLE AT THIS TIME. WILL CONTINUE TO MONITOR. Addendum entered by Rachel Luque RN 12/03/20 11:29: DAUGHTER HAS ARRIVED AND STATED SOON PT'S GRANDCHILD ARRIVES TO SEE HER DAD SHE WOULD LIKE TO TURN OFF ALL DRIPS AND LET HIM PASS PEACEFULLY. PHENYLEPHRINE DRIP AT 340MCG/MIN. BP 74/44. HOSPICE NOTIFIED. Addendum entered by Rachel Luque RN 12/03/20 10:34: NOTIFIED BARBARA AT 1025. PHENYLEPHRINE DRIP CONTINUES TO BE TITRATED AND IS CURRENTLY RUNNING AT 320MCG/MIN. BP 82/52. PT CONTINUES TO BE IN AFIB/CONTROLLED RATE. BARBARA ORDERED FOR CARDIZEM DRIP TO BE STOPPED FOR NOW TO SEE IF PT'S BP COULD POSSIBLY INCREASE. Original Note: THIS MORNING PT IS UNRESPONSIVE. WILL OPEN EYES TO STERNAL RUB BUT UNABLE TO GIVE DIRECT EYE CONTACT. PHENYLEPHRINE DRIP IS AT 280 MCG/MIN AND VASOPRESSIN DRIP HAS BEEN AT MAX SINCE LATE YESTERDAY AFTERNOON. BP 86/48. MOTTLING NOTED TO BLE. LUNG SOUNDS DIMINISHED. 02 SATURATION 87-90% ON 6 L NC. PT'S DAUGHTER WAS NOTIFIED THIS MORNING ABOUT PT'S CONDITION AND SHE STATED HER PLAN WAS TO ARRIVE AT THE HOSPITAL SOMETIME THIS MORNING. DAUGHTER STATED SHE WAS OKAY WITH CONTINUING WITH THE DRIPS PT HAS GOING RIGHT NOW BUT ONCE THEY ARE AT MAX RATE SHE DOES NOT WANT TO ADD ANYMORE AGGRESSIVE TREATMENT AND SHE WANTED HER DAD TO BE COMFORTABLE. DNR STATUS WAS VERIFIED AGAIN OVER THE PHONE AND IS SIGNED ON THE CHART. ROUNDED WITH THIS MORNING. NO NEW ORDERS AT THIS TIME. WILL CONTINUE TO MONITOR.
--- NOTE | 2020-12-03 10:10 | HMH.ACPN ---
Internal Medicine - PN: Subj *Date: 12/03/20 *Time: 10:10 Exam Vital signs and Labs for Last 24 Hours: Temp Pulse Resp BP Pulse Ox 98.7 F 93 H 16 85/45 L 87 L 12/03/20 08:00 12/03/20 09:00 12/03/20 09:00 12/03/20 09:00 12/03/20 09:00 Laboratory Results - last 24 hr 12/02/20 09:00: Blood Type O Negative, Antibody Screen Negative, Crossmatch (AHG) See Detail 12/02/20 10:50: Blood Type Confirm O Negative 12/03/20 00:17: Hgb 10.3 L D, Hct 34.1 L 12/03/20 05:24: WBC 19.6 H, RBC 3.59 L D, Hgb 11.0 L, Hct 36.7 L, MCV 102.3 H, MCH 30.8, MCHC 30.1 L, RDW 16.1, Plt Count 256, MPV 9.3, Neut % (Auto) 90.4 H, Lymph % (Auto) 4.4 L, [place] % (Auto) 4.8, Eos % (Auto) 0.1, Baso % (Auto) 0.2, Neut # (Auto) 17.7 H, Lymph # (Auto) 0.9, [place] # (Auto) 0.9, Eos # (Auto) 0.0, Baso # (Auto) 0.1, Total Counted 100, Neutrophils % (Manual) 89 H, Band Neutrophils % 6.0, Lymphocytes % (Manual) 5 L, Platelet Estimate Normal, Hypochromasia 2+, Macrocytosis 2+, Rouleaux 1+ 12/03/20 05:24: Sodium 150 H, Potassium 3.8 D, Chloride 119 H, Carbon Dioxide 15 L, Anion Gap 19.8 H, BUN 58 H, Creatinine 1.90 H, Estimated Creat Clear 30, Estimated GFR 34 L, Est GFR ( Amer) 41 L, Glucose 104 H, Calcium 8.2 L I & O for Last 24 hours: Intake & Output 11/30/20 12/01/20 12/02/20 12/03/20 23:59 23:59 23:59 23:59 Intake Total 1429 / 1429 2554 / 2554 8093 / 8396 2846 / 2846 Output Total 1974 2400 / 2850 1950 / 2300 600 / 600 Balance -546 / -1046 154 / -296 6143 / 6096 2246 / 2246 Weight 68.691 kg 68.492 kg 68.492 kg Microbiology Reports for the Last 24 Hours: Microbiology 12/01/20 14:10 Sputum - Expectorated Sputum Gram Stain - Final 12/01/20 14:10 Sputum - Expectorated Sputum Sputum Culture - Preliminary 11/30/20 01:40 Urine,Catheterized Urine Culture - Final Proteus mirabilis Assessment and Plan (1) A-fib Status: Acute Qualifiers: Atrial fibrillation type: unspecified Qualified Code(s): I48.91 - Unspecified atrial fibrillation Category: Medical Code(s): I48.91 - Unspecified atrial fibrillation (2) Hypotension Status: Acute Category: Medical Code(s): I95.9 - Hypotension, unspecified (3) Septic shock Status: Acute Category: Medical Code(s): A41.9 - Sepsis, unspecified organism; R65.21 - Severe sepsis with septic shock (4) Hematuria Status: Acute Qualifiers: Hematuria type: gross Qualified Code(s): R31.0 - Gross hematuria Category: Medical Code(s): R31.9 - Hematuria, unspecified (5) BACILIO (acute kidney injury) Status: Acute Category: Medical Code(s): N17.9 - Acute kidney failure, unspecified (6) Edema of leg Status: Acute Category: Medical Code(s): R60.0 - Localized edema (7) Fall Status: Acute Qualifiers: Encounter type: initial encounter Qualified Code(s): W19.XXXA - Unspecified fall, initial encounter Category: Medical Code(s): W19.XXXA - Unspecified fall, initial encounter (8) Hypokalemia Status: Acute Category: Medical Code(s): E87.6 - Hypokalemia (9) Neck pain Status: Acute Category: Medical Code(s): M54.2 - Cervicalgia (10) Odontoid fracture with type II morphology Status: Acute Qualifiers: Encounter type: subsequent encounter Fracture type: closed Fracture alignment: nondisplaced Fracture healing: with routine healing Qualified Code(s): S12.112D - Nondisplaced Type II dens fracture, subsequent encounter for fracture with routine healing Category: Medical Code(s): S12.110A - Anterior displaced Type II dens fracture, initial encounter for closed fracture (11) Tobacco use Status: Acute Category: Social Hx Code(s): Z72.0 - Tobacco use (12) Left leg DVT Status: Acute Category: Medical Code(s): I82.402 - Acute embolism and thrombosis of unspecified deep veins of left lower extremity (13) Mild dementia Status: Chronic Category: Medical Code(s): F
--- NOTE | 2020-12-03 15:09 | HMH.ACPN2 ---
Internal Medicine - PN: Subj *Date: 12/03/20 *Time: 08:40 Exam Vital signs and Labs for Last 24 Hours: Temp Pulse Resp BP Pulse Ox 98.7 F 96 H 28 H 89/56 L 86 L 12/03/20 08:00 12/03/20 12:00 12/03/20 13:25 12/03/20 12:00 12/03/20 12:00 Laboratory Results - last 24 hr 12/02/20 09:00: Blood Type O Negative, Antibody Screen Negative, Crossmatch (AHG) See Detail 12/03/20 00:17: Hgb 10.3 L D, Hct 34.1 L 12/03/20 05:24: WBC 19.6 H, RBC 3.59 L D, Hgb 11.0 L, Hct 36.7 L, MCV 102.3 H, MCH 30.8, MCHC 30.1 L, RDW 16.1, Plt Count 256, MPV 9.3, Neut % (Auto) 90.4 H, Lymph % (Auto) 4.4 L, [place] % (Auto) 4.8, Eos % (Auto) 0.1, Baso % (Auto) 0.2, Neut # (Auto) 17.7 H, Lymph # (Auto) 0.9, [place] # (Auto) 0.9, Eos # (Auto) 0.0, Baso # (Auto) 0.1, Total Counted 100, Neutrophils % (Manual) 89 H, Band Neutrophils % 6.0, Lymphocytes % (Manual) 5 L, Platelet Estimate Normal, Hypochromasia 2+, Macrocytosis 2+, Rouleaux 1+ 12/03/20 05:24: Sodium 150 H, Potassium 3.8 D, Chloride 119 H, Carbon Dioxide 15 L, Anion Gap 19.8 H, BUN 58 H, Creatinine 1.90 H, Estimated Creat Clear 30, Estimated GFR 34 L, Est GFR ( Amer) 41 L, Glucose 104 H, Calcium 8.2 L I & O for Last 24 hours: Intake & Output 12/01/20 12/02/20 12/03/20 12/04/20 11:59 11:59 11:59 11:59 Intake Total 1429 / 1429 2554 / 2554 34019 / 27982 Output Total 875 / 875 2350 / 2350 2100 / 2100 Balance 554 / 554 204 / 204 8839 / 8839 Weight 151 lb 151 lb Microbiology Reports for the Last 24 Hours: Microbiology 12/01/20 14:10 Sputum - Expectorated Sputum Gram Stain - Final 12/01/20 14:10 Sputum - Expectorated Sputum Sputum Culture - Preliminary - Constitutional no acute distress, chronically ill appearing - *Routine HEENT Exam Head: Present: normocephalic Eye: Present: PERRL ENT: Present: mucous membranes moist - *Routine Neck Exam Present: supple. Absent: lymphadenopathy - *Routine Respiratory Exam Present: rhonchi - *Routine Cardiovascular Exam Present: RRR - *Routine Abdominal Exam Present: soft, normoactive bowel sounds. Absent: tenderness - *Routine Extremities Exam Absent: cyanosis, clubbing, edema - *Routine Skin Exam Present: warm. Absent: rash - *Routine Neurological Exam non responsive Assessment and Plan (1) A-fib Status: Acute Qualifiers: Atrial fibrillation type: unspecified Qualified Code(s): I48.91 - Unspecified atrial fibrillation Category: Medical Code(s): I48.91 - Unspecified atrial fibrillation (2) Hypotension Status: Acute Category: Medical Code(s): I95.9 - Hypotension, unspecified (3) Septic shock Status: Acute Category: Medical Code(s): A41.9 - Sepsis, unspecified organism; R65.21 - Severe sepsis with septic shock (4) Hematuria Status: Acute Qualifiers: Hematuria type: gross Qualified Code(s): R31.0 - Gross hematuria Category: Medical Code(s): R31.9 - Hematuria, unspecified (5) BACILIO (acute kidney injury) Status: Acute Category: Medical Code(s): N17.9 - Acute kidney failure, unspecified (6) Edema of leg Status: Acute Category: Medical Code(s): R60.0 - Localized edema (7) Fall Status: Acute Qualifiers: Encounter type: initial encounter Qualified Code(s): W19.XXXA - Unspecified fall, initial encounter Category: Medical Code(s): W19.XXXA - Unspecified fall, initial encounter (8) Hypokalemia Status: Acute Category: Medical Code(s): E87.6 - Hypokalemia (9) Neck pain Status: Acute Category: Medical Code(s): M54.2 - Cervicalgia (10) Odontoid fracture with type II morphology Status: Acute Qualifiers: Encounter type: subsequent encounter Fracture type: closed Fracture alignment: nondisplaced Fracture healing: with routine healing Qualified Code(s): S12.112D - Nondisplaced Type II dens fracture, subsequent encounter for fracture with routine healing Category: Medical Code(s): S12.110A - Ante
--- NOTE | 2020-12-04 02:02 | P.DN_ITS ---
Pronouncement Note - Date and Time of Date of : 12/04/20 Time of : 01:45 - PCOD Preliminary cause of : Urinary tract infection - Additional Data Confirmation of : no pulse, no respirations, no heart sounds, pupils fixed and dilated Family: contacted Attending/PCP notified?: Yes Attending physician: Chandu Senior MD Was code activated?: No Autopsy requested?: No document examiner notified?: No Organ bank notified?: Yes Advance directives: Yes
--- NOTE | 2020-12-04 02:04 | HMH.DCSUM ---
General - General Admission date:: 11/30/20 <Chris Flaherty - 07/20/21 15:15> 11/30/20 <Chandu Senior - 12/04/20 02:05> Discharge date: 12/04/20 <Chandu Senior Berenice - 12/04/20 02:05> HPI HPI: 80-year-old white gentleman who presented to the emergency department from the detention for hypotension and hematuria. The patient was supposed to have a TURP on Saturday but did not show up for the procedure. The patient gives very little history and cannot tell me why he is at the hospital. He does report that he is having pain in his lower back and neck from a fall recently but he does not know when. The patient states that the back pain and neck pain are severe. He does have a neck brace in place. He denies any chest pain or pressure. He denies any shortness of breath. The patient was recently admitted to the hospital for COVID-19 pneumonia in October 2020. He does have known atrial fibrillation that currently does not appear to be treated. He denies [place] or coronary artery disease. He denies any fever, chills, nausea, vomiting, diarrhea, PND orthopnea. The patient does have bilateral lower extremity edema. This is mild in his right lower extremity but he does have significantly more edema in his left lower extremity.-per cardiology <NadeenChandu Ng - 12/04/20 02:05> Hospital Course Hospital Course: Abnormal Labs 11/30/20 11/30/20 11/30/20 01:40 01:40 01:40 WBC 20.7 H* RBC 3.48 L Hgb 10.4 L Hct 34.6 L MCV 99.5 H MCHC 29.9 L Neut % (Auto) 91.3 H Lymph % (Auto) 4.4 L Neut # (Auto) 18.9 H Neutrophils % (Manual) 90 H Lymphocytes % (Manual) 9 L Monocytes % (Manual) 1 L ESR 79 H Sodium Potassium 3.1 L Chloride 95 L Carbon Dioxide Anion Gap 22.1 H BUN 82 H Creatinine 3.20 H Estimated GFR 19 L* Est GFR ( Amer) 23 L Glucose 220 H Lactate Calcium 8.2 L C-Reactive Protein 182.7 H Total Protein 6.0 L Albumin 3.1 L Ur Leukocyte Esterase 1+ A Crossmatch ([facility]) 11/30/20 11/30/20 11/30/20 01:40 05:06 07:28 WBC RBC Hgb Hct MCV MCHC Neut % (Auto) Lymph % (Auto) Neut # (Auto) Neutrophils % (Manual) Lymphocytes % (Manual) Monocytes % (Manual) ESR Sodium Potassium Chloride Carbon Dioxide Anion Gap BUN Creatinine Estimated GFR Est GFR ( Amer) Glucose Lactate 8.0 H 3.3 H 2.7 H Calcium C-Reactive Protein Total Protein Albumin Ur Leukocyte Esterase Crossmatch ([facility]) 11/30/20 11/30/20 12/01/20 11:22 11:22 05:40 WBC 32.8 H* D 23.1 H* D RBC 3.39 L 2.55 L Hgb 10.3 L 7.8 L D Hct 34.0 L 24.8 L MCV 100.5 H 97.3 H MCHC 30.3 L 31.4 L Neut % (Auto) 93.4 H 90.3 H Lymph % (Auto) 3.4 L 4.9 L Neut # (Auto) 30.7 H 20.9 H Neutrophils % (Manual) 95 H 89 H Lymphocytes % (Manual) 3 L 6 L Monocytes % (Manual) ESR Sodium Potassium 3.1 L Chloride Carbon Dioxide Anion Gap 15.1 H BUN 77 H Creatinine 2.80 H Estimated GFR 22 L Est GFR ( Amer) 27 L Glucose 162 H D Lactate Calcium 7.9 L C-Reactive Protein Total Protein Albumin Ur Leukocyte Esterase Crossmatch ([facility]) 12/01/20 12/02/20 12/02/20 05:40 05:39 05:39 WBC 18.8 H RBC 2.60 L Hgb 7.9 L Hct 25.9 L MCV 99.7 H MCHC 30.5 L Neut % (Auto) 90.9 H Lymph % (Auto) 5.1 L Neut # (Auto) 17.1 H Neutrophils % (Manual) 94 H Lymphocytes % (Manual) 2 L Monocytes % (Manual) ESR Sodium 146 H Potassium 3.4 L 2.7 L* D Chloride 119 H 117 H Carbon Dioxide 14 L 15 L Anion Gap 16.7 H BUN 69 H 57 H Creatinine 1.90 H D 1.80 H Estimated GFR 34 L 36 L Est GFR ( Amer) 41 L D 44 L Glucose 104 H D Lactate Calcium 7.6 L 7.5 L C-Reactive Protein Total Protein Albumin Ur Leuk
== END 2020-12-04 03:22 | disposition expired | DRG 871 ==
LOC: ER 05:38 → 2ND 05:42
PROVIDERS: Nurse Practitioner Family; Admitting Provider Emergency Medicine; Emergency Provider Emergency Medicine; PCP Emergency Medicine; Visit Provider Emergency Medicine
DX: A41.9 Sepsis, unspecified organism (principal); R65.21 Severe sepsis with septic shock; J69.0 Pneumonitis due to inhalation of food and vomit; N17.9 Acute kidney failure, unspecified; N39.0 Urinary tract infection, site not specified; I82.452 Acute embolism and thrombosis of left peroneal vein; S43.004A Unspecified dislocation of right shoulder joint, initial encounter; Z51.5 Encounter for palliative care; Z91.81 History of falling; J44.9 Chronic obstructive pulmonary disease, unspecified; I48.91 Unspecified atrial fibrillation; F17.210 Nicotine dependence, cigarettes, uncomplicated; I25.10 Atherosclerotic heart disease of native coronary artery without angina pectoris; I10 Essential (primary) hypertension; E87.6 Hypokalemia; M54.2 Cervicalgia; I35.0 Nonrheumatic aortic (valve) stenosis; Z86.16 Personal history of COVID-19; F17.200 Nicotine dependence, unspecified, uncomplicated; F03.90 Unspecified dementia, unspecified severity, without behavioral disturbance, psychotic disturbance, mood disturbance, and anxiety; R31.0 Gross hematuria; W19.XXXA Unspecified fall, initial encounter
CPT/HCPCS: 36415; 71045; 74176; 80048; 80053; 81001; 83605; 84145; 85007; 85014; 85018; 85025; 85651; 86140; 86850; 87040; 87070; 87086; 87088; 87186; 87205; 93005; 93308; 93970; 94640; 94761; 96365; 96367; 96375; 99285; C9803; P9016; U0003; U0005